=== PATIENT | male | born 1965 | race Caucasian/White ===

== ENCOUNTER → 2016-04-09 | Day surgery (SDC) | payer BC ==
[2016-03-31 14:51] VITALS: BMI 29.0
[~2016-04-09] VITALS: Ht 190.5 cm; Wt 106.8 kg
[~2016-04-09] MED LIST: CINN1CAP2 PO; GARL10007 PO; MULTTAB58 PO; OMEG10007 PO; SODIUM CHLORIDE 0.9% 500ML 500 ML IV ONE; TAMS0.4C38 PO
[2016-04-09 09:36] VITALS: Ht 190.5 cm; Wt 106.8 kg
[2016-04-09 09:51] VITALS: TEMP 36.6
--- NOTE | 2016-04-09 10:19 | Endo History and Physical ---
History & Physical Date of Service: Apr 09, 2016. Chief Complaint: screening Referring Physician: Dr. Guzman History of Present Illness 51 yo CM who presents for screening colonoscopy Past Medical History High Cholesterol Past Surgical History Hx Cardiac Surgery: No Hx Internal Defibrillator: No Hx Pacemaker: No Hx Abdominal Surgery: No Hx of Implantable Prosthesis: No Hx Post-Op Nausea and Vomiting: No Hx Cancer Surgery: No Hx Thoracic Surgery: No Hx Orthopedic: Yes (RT SHOULDER SCOPE, LT KNEE SCOPE X2) Hx Urinary Tract Surgery: Yes (KIDNEY STENT) Family History None Social History Smoking Status: Never Smoker Hx Substance Use: No Hx Alcohol Use: No Allergies Coded Allergies: Penicillins (Verified Allergy, Severe, THROAT SWELLING, 03/31/16) Latex1 -Allergic Contact Dermititis (Verified Allergy, Mild, ITCHING, 03/31) Current Medications Reported Home Medications Medications Dose Route/Sig Max Daily Dose Days Date Category Flomax (Tamsulosin Hcl) 0.4 Mg Cap 0.4 Mg PO QAM 03/31/16 Reported Garlic 1,000 Mg Cap 1,000 Mg PO BID 09/18/14 Reported Cinnamon 500 Mg Cap 500 Mg PO BID 09/18/14 Reported [place]-3 (Fish Oil) 1 Ea Cap 1 Tab PO QAM 09/18/14 Reported Multivitamin (Multiple Vitamin) 1 Tab Tab 1 Tab PO QAM 08/23/13 Reported Vital Signs Weight (Kilograms): 106.82 Height (Feet): 6 Height (Inches): 3 Date Time Temp Pulse Resp B/P Pulse Ox O2 Delivery O2 Flow Rate FiO2 04/09/16 09:51 36.6 86 18 133/81 98 Room Air Physical Exam General Appearance: WD/WN, no apparent distress Respiratory/Chest: Auscultation: breath sounds normal Cardiovascular: Heart Auscultation: RRR Abdomen: Bowel Sounds: normal Inspection & Palpation: soft, non-distended, no tenderness, guarding & rebound Assessment and Plan Assessment: 51 yo CM who presents for screening colonoscopy Plan: OK to proceed with colonoscopy.
--- NOTE | 2016-04-09 10:37 | Discharge Instructions ---
Endoscopy Patient Instructions Date / Procedure(s) Performed Apr 09, 2016. Colonoscopy Allergy Information Coded Allergies: Penicillins (Verified Allergy, Severe, THROAT SWELLING, 03/31/16) Latex1 -Allergic Contact Dermititis (Verified Allergy, Mild, ITCHING, 03/31) Discharge Date / Findings Apr 09, 2016. Colon polyp Internal hemorrhoids Medication Instructions OK to resume all medications today as prescribed. Reported Home Medications Medications Dose Route/Sig Max Daily Dose Days Date Category Flomax (Tamsulosin Hcl) 0.4 Mg Cap 0.4 Mg PO QAM 03/31/16 Reported Garlic 1,000 Mg Cap 1,000 Mg PO BID 09/18/14 Reported Cinnamon 500 Mg Cap 500 Mg PO BID 09/18/14 Reported [place]-3 (Fish Oil) 1 Ea Cap 1 Tab PO QAM 09/18/14 Reported Multivitamin (Multiple Vitamin) 1 Tab Tab 1 Tab PO QAM 08/23/13 Reported Provider Instructions Activity Restrictions - No exercising or heavy lifting for 24 hours. - Do not drink alcohol the day of the procedure. - Do not drive a car or operate machinery until the day after the procedure. - Do not make any important decisions or sign important papers in 24 hours after the procedure. Following Day: - Return to full activity which may include returning to work/school. Diet Start your diet with liquids and light foods (jello, soup, juice, toast). Then eat your usual diet if not nauseated. Treatment For Common After Affects For mild abdominal pain, bloating, or excessive gas: - Rest - Eat lightly - Lie on right side Follow-Up Information Follow-up with Dr. Guzman as scheduled Anesthesia Information What You Should Know You have had a procedure that required some medicine to reduce anxiety and discomfort. This treatment is called moderate sedation. After receiving the treatment, you may be sleepy, but you will be able to breathe on your own. The effects of the treatment may last for several hours. Follow these instructions along with Activity/Diet recommendations noted above: * Do NOT do anything where dizziness or clumsiness would be dangerous. * Rest quietly at home today, then you can be up and about tomorrow. * Have a responsible person stay with you the rest of today. * You may have had an I.V. today. If so, you may take the dressing off later today. Recommendations Call your doctor if: * Trouble breathing * Continuous vomiting for more than 24 hours * Temperature above 101 degrees * Severe abdominal pain or bloating * Pain not relieved by pain medicine ordered * There is increased drainage or redness from any incision * A large amount of rectal bleeding greater than 2-3 tablespoons. (If you had a polyp/s removed or have hemorrhoids, a small amount of blood - from the rectum is to be expected.) * You have any unanswered questions or concerns. IN THE EVENT OF A SERIOUS EMERGENCY, GO TO THE NEAREST EMERGENCY ROOM Your discharge instructions were prepared by provider Thompson Ramirez. Patient Instructions Signature Page Saul Rodgers Patient (or Guardian) Signature/Date: I have read and understand the instructions given to me by my caregivers. Caregiver/RN/Doctor Signature/Date: The above-named patient and/or guardian has received patient instructions on this date. + Original Patient Signature Page (only) stays with chart. Please make copy for patient.
--- NOTE | 2016-04-09 10:42 | GI REPORT ---
Procedure Date: 04/09/2016 10:08 AM Procedure: Colonoscopy Indications: Screening for colorectal malignant neoplasm Medicines: Monitored Anesthesia Care Complications: No immediate complications. Estimated Blood Loss: Estimated blood loss: none. Procedure: Pre-Anesthesia Assessment: - Prior to the procedure, a History and Physical was performed, and patient medications and allergies were reviewed. The patient's tolerance of previous anesthesia was also reviewed. The risks and benefits of the procedure and the sedation options and risks were discussed with the patient. All questions were answered, and informed consent was obtained. Prior Anticoagulants: The patient has taken no previous anticoagulant or antiplatelet agents. ASA Grade Assessment: II - A patient with mild systemic disease. After reviewing the risks and benefits, the patient was deemed in satisfactory condition to undergo the procedure. After I obtained informed consent, the scope was passed under direct vision. Throughout the procedure, the patient's blood pressure, pulse, and oxygen saturations were monitored continuously. The scope was introduced through the anus and advanced to the terminal ileum. The colonoscopy was performed without difficulty. The patient tolerated the procedure well. The quality of the bowel preparation was good. The terminal ileum, ileocecal valve, appendiceal orifice, and rectum were photographed. Findings: A 5 mm polyp was found in the sigmoid colon. The polyp was sessile. The polyp was removed with a hot snare. Resection and retrieval were complete. Non-bleeding internal hemorrhoids were found during retroflexion. The hemorrhoids were small. Impression: - One 5 mm polyp in the sigmoid colon, removed with a hot snare. Resected and retrieved. - Non-bleeding internal hemorrhoids. Recommendation: - Resume previous diet. - Continue present medications. - Repeat colonoscopy for surveillance based on pathology results. - Return to primary care physician as previously scheduled. Thompson Ramirez DO 04/09/2016 10:41:46 AM This report has been signed electronically. Note Initiated On: 04/09/2016 10:08 AM
[2016-04-09 11:10] VITALS: BP 108/62; PULSE 63; O2SAT 100
--- NOTE | 2016-04-09 11:16 | Anesthesiology Progress Note ---
Anesthesia Post Op Note Date & Time Apr 09, 2016 at 11:17 Vital Signs Pain Intensity: 0 Vital Signs Past 12 Hours Date Time Temp Pulse Resp B/P Pulse Ox O2 Delivery O2 Flow Rate FiO2 04/09/16 11:10 63 18 108/62 100 Room Air 04/09/16 10:55 64 18 113/67 100 Room Air 04/09/16 10:40 72 18 88/51 98 Room Air 04/09/16 09:51 36.6 86 18 133/81 98 Room Air Notes Mental Status: alert / awake / arousable, participated in evaluation Pt Amnestic to Procedure: Yes Nausea / Vomiting: adequately controlled Pain: adequately controlled Airway Patency, RR, SpO2: stable & adequate BP & HR: stable & adequate Hydration State: stable & adequate Anesthetic Complications: no major complications apparent
== END | disposition home or self-care (01) ==
LOC: C.GI 08:48
PROVIDERS: ATTEND Internal Medicine
DX: Z12.11 Encounter for screening for malignant neoplasm of colon (principal); D12.5 Benign neoplasm of sigmoid colon; K64.8 Other hemorrhoids

== ENCOUNTER 2017-03-11 09:04 | Emergency (ER) | payer OTHER, BC ==
[~2017-03-11] VITALS: Ht 193 cm; Wt 100.0 kg
[~2017-03-11 09:04] MED LIST changes: -SODIUM CHLORIDE 0.9% 500ML 500 ML IV ONE
[2017-03-11 09:08] VITALS: TEMP 36.7; Ht 193 cm; Wt 100.0 kg
[2017-03-11] MEDS ORDERED: CYAN10005 PO (09:28)
[2017-03-11] MEDS ORDERED: TOLT2TAB9 PO (09:28)
--- NOTE | 2017-03-11 10:47 | EMERGENCY ROOM VISIT NOTE ---
ED Visit Note First contact with patient: 09:14 CHIEF COMPLAINT: Finger injury HISTORY OF PRESENT ILLNESS: This 51-year-old male patient who is right-hand dominant, presents to the emergency department 1 day after injuring the right fifth finger at work. The patient states he works with a [employer] company and yesterday morning, was throwing some cardboard into the truck, when he got his finger caught in the moving chain. He is uncertain how exactly the injury occurred, but believes it to be a twisting injury. He continued to work yesterday, as the pain was not significant. He was advised to fill out paperwork at the end of his work day, but the patient's access services representative was unavailable. He returned to work today and was advised to come to the ED for further evaluation and x-ray. The patient notes some bruising and swelling to the right little finger. The patient rates the pain as minimal and 1/10, but more severe with palpation or movement. The patient has mildly decreased range of motion of the finger. No numbness or tingling. No lacerations. No other injuries. The patient has not had previous fracture to this finger. The patient has taken nothing for the pain. The patient works at [employer] and [employer]. REVIEW OF SYSTEMS: A 6 system review of systems was completed with positives and pertinent negatives in the HPI. ALLERGIES: Latex, penicillin MEDICATIONS: Tamsulosin, "another medication from my urologist" PMH: BPH SOCIAL HISTORY: The patient lives locally with family. He denies drug or alcohol use. The patient admits to chewing snuff regularly. PHYSICAL EXAM: Vital Signs: Reviewed Nurse's notes, vital signs stable. GENERAL : This is a 51-year-old white male, in no acute distress, well-developed, well- nourished. 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 The patient has mildly limited flexion and limited extension of the right little finger and strength to resistance is 5/5. The PIP joint is maximally tender and ecchymotic. There is swelling and tenderness of the proximal and middle phalanges. There is no ligamentous instability. There is no laceration. Capillary refill less than 2 seconds. No tenderness of the remaining fingers or hand. Full range of motion of the wrist. NEURO: Alert and oriented to person, place, and time. Normal sensation to light and sharp touch. RADIOLOGY: RIGHT FIFTH FINGER 3 VIEWS HISTORY: right 5th finger pain/bruising - mid/distal phalanx, PIP COMPARISON: None. FINDINGS: There is no fracture or dislocation. Soft tissue swelling at the PIP joint. No erosions identified. No radiopaque foreign bodies. IMPRESSION: Soft tissue swelling at the PIP joint of the right fifth finger. No underlying bony abnormality. Electronically signed by: Michele Maza M.D. 03/11/2017 10:46 AM Dictated Date/Time: 03/11/2017 10:44 AM EMERGENCY DEPARTMENT COURSE: I examined the patient. I offered pain medication and the patient declines. An x-ray of the right little finger was reviewed by myself and radiologist and showed soft tissue swelling, but no bony abnormality. I do suspect a flexor tendon injury due to the boutonniere deformity. The finger was immobilized by a metal splint under my direction and the position was satisfactory. Neurovascular status rechecked and intact. The patient is encouraged to follow-up outpatient with orthopedics. The patient was discharged home in good condition. I attest that I have personally reviewed the patient's current medication list. Patient was found to have normal blood pressure on screening and does not require follow-up. DIFFERENTIAL DIAGNOSIS: Contusion, fracture, dislocation, soft tissue injury, tendon rupture, and others DIAGNOSIS: Boutonniere deformity of right little finger Current/Historical Medications Scheduled Cinnamon (Cinnamon), 500 MG PO BID Cyanocobalamin (Vitamin B-12), 1,000 MCG PO DAILY Fish Oil ([place]-3), 1 TAB PO QAM Garlic (Garlic), 1,000 MG PO BID Multiple Vitamin (Multivitamin), 1 TAB PO QAM Tamsulosin Hcl (Flomax), 0.4 MG PO QAM Tolterodine Tartrate (Tolterodine Tartrate), 2 MG PO BID Allergies Coded Allergies: Penicillins (Verified Allergy, Severe, THROAT SWELLING, 03/11/17) Latex1 -Allergic Contact Dermititis (Verified Allergy, Mild, ITCHING, ) Vital Signs Date Time Temp Pulse Resp B/P (MAP) Pulse Ox O2 Delivery O2 Flow Rate FiO2 03/11/17 11:07 84 16 121/81 97 Room Air 03/11/17 09:08 36.7 110 18 122/74 97 Room Air Departure Information Impression Primary Impression: Boutonniere deformity of finger of right hand Dispostion Home / Self-Care Condition GOOD Referrals No Doctor, Assigned (PCP) Star Jules M.D. Patient Instructions ED Contusion Finger, My [facility] Additional Instructions You were seen in the emergency department today for a right finger injury. I do suspect a tendon injury. Please keep the splint in place until evaluated by orthopedics. Use ice to help with pain and swelling. 20 minutes on and time. For pain control, you can use the following [id number] medicines (if >12 yo): - Regular strength (325mg/tab) Tylenol (acetaminophen) 2 tabs every 4-6 hours as needed. Do not exceed 12 tablets in a 24 hour period. Avoid taking more than 3 grams (3000 mg) of Tylenol per day. This includes any other sources of acetaminophen you may take on a regular basis. - Regular strength (200 mg/tab) Advil (ibuprofen) 1-2 tabs every 4-6 hours as needed. Do not exceed a dose of 2400 mg per day. Please follow up with your Worker's [employer]. providers and orthopedics within 1 week. Return to the emergency department for worsening redness, swelling, pain, numbness or tingling, puslike drainage, fever, or other concerning symptoms.
[2017-03-11 11:07] VITALS: BP 121/81; PULSE 84; O2SAT 97
== END 2017-03-11 11:30 | disposition home or self-care (01) ==
LOC: C.EDB 09:06 → C.EDA 11:30
DX: M20.021 Boutonniere deformity of right finger(s) (principal); Y99.0 Civilian activity done for income or pay; Y92.89 Other specified places as the place of occurrence of the external cause; W24.0XXA Contact with lifting devices, not elsewhere classified, initial encounter; Z79.899 Other long term (current) drug therapy; N40.0 Benign prostatic hyperplasia without lower urinary tract symptoms; F17.220 Nicotine dependence, chewing tobacco, uncomplicated

== ENCOUNTER → 2017-09-30 | Outpatient (CLI) | payer BC ==
[~2017-09-30] MED LIST changes: +CYAN10005 PO; +TOLT2TAB9 PO
[2017-09-30 12:31] LABS: BASO % 0.3 %; BASO ABS # 0.02 K/uL (0-0.2); EOS % 1.6 %; EOS ABS # 0.09 K/uL (0-0.5); HEMATOCRIT 47.7 % (42-52); HEMOGLOBIN 15.9 g/dL (14.0-18.0); IG# 0.01 K/uL (0.00-0.02); LYMPH % 10.2 %; LYMPH ABS # 0.59 K/uL (1.2-3.4); MEAN CELL VOLUME 96.6 fL (80-100); MEAN CORPUSCULAR HEMOGLOBIN 32.2 pg (25-34); MEAN CORPUSCULAR HGB CONC 33.3 g/dl (32-36); MEAN PLATELET VOLUME 9.1 fL (7.4-10.4); MONO % 9.7 %; MONO ABS # 0.56 K/uL (0.11-0.59); NEUT ABS # 4.53 K/uL (1.4-6.5); PLATELET COUNT 234 K/uL (130-400); RED CELL DISTRIBUTION WIDTH CV 13.5 % (11.5-14.5); RED CELL DISTRIBUTION WIDTH SD 47.6 fL (36.4-46.3)
[2017-09-30 13:00] LABS: ALBUMIN 4.1 gm/dl (3.4-5.0); ALKALINE PHOSPHATASE 60 U/L (45-117); ALT/SGPT 34 U/L (12-78); AST/SGOT 22 U/L (15-37); BLOOD UREA NITROGEN 16 mg/dl (7-18); CALCIUM 9.1 mg/dl (8.5-10.1); CARBON DIOXIDE 27 mmol/L (21-32); CHOLESTEROL 162 mg/dl (0-200); CREATININE 1.05 mg/dl (0.60-1.40); GLUCOSE 88 mg/dl (70-99); LDL CHOLESTEROL CALCULATED 63 mg/dl; POTASSIUM 4.2 mmol/L (3.5-5.1); SODIUM 140 mmol/L (136-145); TOTAL PROTEIN 7.8 gm/dl (6.4-8.2)
== END | disposition home or self-care (01) ==
LOC: C.LABBFT 09:29
PROVIDERS: ATTEND Internal Medicine
DX: N40.1 Benign prostatic hyperplasia with lower urinary tract symptoms (principal); E78.5 Hyperlipidemia, unspecified

== ENCOUNTER 2019-07-23 16:31 | Inpatient (IN) ==
[2019-07-23] MEDS ORDERED: SODIUM CHLORIDE 0.9% 1000ML 1,000 ML IV SCH (16:45)
--- NOTE | 2019-07-23 17:04 | Emergency Department Note ---
Impression & Plan Atrial flutter with rapid ventricular response, Syncope, Laceration of occipital region of scalp ED Provider Note NAME: MICHAEL HINOJOSA AGE: 54 SEX: M : 1965 ARRIVES VIA: Ambulance INFORMANT: Patient, ED PROVIDER(S): Chandu Herman MD Chief Complaint: Shortness of breath, syncope HPI: She does present with concern for shortness of breath and syncope. The patient states that he developed some shortness of breath earlier today. The patient states that was brief and then happened a subsequent time and the patient syncopized. The patient does have some mild posterior headache as the patient reportedly fell backwards and struck his head. No known history of seizures. No tongue biting or urinary or bladder incontinence. The patient does use alcohol and tobacco. The patient denies any chest pains. The patient did present via EMS where he did receive a dose of Cardizem. His in route EKG showed a likely atrial flutter. ROS: See HPI for pertinent positives and negatives. A total of 10 systems were reviewed and otherwise negative. Past medical history: See below Surgical history: See below Social history: See below Physical Exam: GENERAL: Well appearing, well nourished, NAD, non-toxic. Wearing a mask and glasses. Head: 2 cm laceration to the occiput, hemostatic. Mild TTP. EYE EXAM: Normal conjunctiva. PERRL, no anisocoria and EOM's grossly intact w/o pain. NECK: Supple, no nuchal rigidity, no adenopathy, non-tender. No signs of meningismus. No midline C-spine TTP. LUNGS: Clear to auscultation. Normal chest wall mechanics. HEART: Tachycardic and regular, no MRG. ABDOMEN: Abdomen soft, non-tender, normo-active bowel sounds, no masses, no rebound or guarding. BACK: No CVA TTP. SKIN: No rashes and no bruising. UPPER EXTREMITIES: Upper extremities are grossly normal. LOWER EXTREMITIES: Grossly normal, no edema. NEURO EXAM: A&O x3, cranial nerves II-XII grossly intact, normal speech, moves all 4 extremities on command w/o issue. Differential diagnoses: Vasovagal event, dehydration, infection, hypoglycemia, electrolyte abnormalities, cardiac sources, intracerebral event, pulmonary embolism, seizure, toxicologic, neurologic, as well as other pathologies. Course: Patient was seen and evaluated the bedside. A full history and physical exam was performed. EKG: Indication: Shortness of breath Atrial flutter, 2-1 AV block, ventricular rate of 146, normal intervals, left axis deviation, this is a change from prior EKG. Patient's atrial flutter is new compared to comparison EKG September 18, 2014 Repeat indication: Worsening tachycardia Monomorphic tachycardia rate of 279, borderline wide QRS, possibly one-to-one atrial flutter. This is an acute change with higher rate of tachycardia. Repeat indication: Improvement of tachycardia A flutter, 2-1 block, ventricular rate of 135, left axis deviation, this is in a change with an improvement in rate compared to prior. Imaging Studies: Radiology results as stated below per my review in the radiologist's inter pretation: CT head/brain wo con CLINICAL HISTORY: Head trauma. Occipital laceration. Pain. Possible loss of consciousness. COMPARISON STUDY: No previous studies for comparison. TECHNIQUE: Axial CT of the brain is performed from the vertex to the skull base. IV contrast was not administered for this examination. A dose lowering technique was utilized adhering to the principles of ALARA. CT DOSE: 537.48 mGy.cm FINDINGS: No intra or extra-axial mass lesions are visualized. There is no CT evidence of acute cortical infarction. There is no evidence of midline shift. There is no acute hemorrhage. No calvarial fractures are visualized. There are minimal white matter hypodensities likely on a small vessel basis. There is no evidence of pathologic ventricular dilatation. There is no evidence of acute sinusitis. There is left occipital scalp edema. IMPRESSION: 1. Left occipital scalp contusion. No fractures identified 2. No acute intracranial findings ACT 112: Negative or not required by law. Electronically signed by: Hemal Zambrano M.D. 07/23/2019 5:03 PM Dictated: 07/23/191700 Transcribed: 07/23/191700 Cardiac monitoring: An order was placed for continuous cardiac monitoring. The monitor shows a rate of 150 with tachycardic rhythm possible flutter Procedures: Laceration repair performed by Dr. Herman Location: Occiput portion of the skin Total length: 2 cm Complexity: Simple Verbal consent was obtained after the risks and benefits were explained, in cluding but not limited to bleeding, scarring, infection, pain, and bone/joint/nerve damage. At this time, the risks of the procedure are less than the risks of NOT performing the procedure. A time out was taken and the correct patient and site identified. The skin was prepped with chlorhexidine.Copious irrigation was performed using sterile saline. The skin was re-prepped with betadine and a sterile field set. The wound was explored for foreign bodies and none found. Examination revealed no injury to deep structures such as tendons, bone, or significant blood vessels. Debridement was not performed. The wound edges were approximated using 1 staple simple interrupted nylon sutures. Hemostasis and excellent approximation was achieved. Detailed wound care instructions and signs and symptoms of infection reviewed with the patient. No complications and the patient tolerated the procedure well. MDM: Patient did present from work due to concern for syncope and tachycardia. The patient was sent to CT given that the patient does have a known history of DVT and is on Xarelto. Upon return from the CT scanner the patient did have a heart rate in the 280s. This appeared to be monomorphic and the patient was not complaining of lightheadedness or dizziness. The patient denied any chest pains or shortness of breath. Pads were placed and repeat EKGs were obtained. I did page the on-call sexual health physician. I did speak with Dr. Demarco who did kindly reviewed his EKGs. He believes that this is likely a one-to-one atrial flutter. He believes that amiodarone diltiazem would be reasonable. Patient was ordered an amnio bolus. The patient did spontaneously revert back to his 2-1 ventricula r rate AV block and was now in the 130s and 40s. Patient's blood work did show mild transaminitis. Troponin is not detectable. CT the head did not show any obvious fracture or ICH. The patient's laceration was repaired. Tetanus is up-to-date. I did speak the on-call hospitalist agreed to further evaluate treat the patient. Patient was admitted to the medicine service under Dr. Geo Ledesma [facility] physician group hospitalist. Critical Care: I have personally spent 95 minutes of critical care time in direct management of this patient. This includes bedside care, interpretation of diagnostic studies, and testing, discussion with consultants, patient, and family members, and other require inpatient management activities. This 95 minutes is in excess of all separately billable procedures. Past Med/Surg History Medical History BPH (benign prostatic hyperplasia) DVT (deep venous thrombosis) Groin strain (Inactive) Surgical History History of knee surgery History of shoulder surgery Family History Grandfather Myocardial infarction Brother Diabetes Diverticulitis Father Leukemia Kidney stone Mother Cardiac disorder Hypothyroidism Social History (Updated 07/23/19 @ 18:38 by Chandu Herman MD) marital status: Goal current occupational status: employed Feels Safe at Home: Yes Smoking Status: Current every day smoker Tobacco Type: smokeless tobacco ; Hx Alcohol Use: Yes Hx Substance Use: No Allergies Allergies Allergy/AdvReac Type Severity Reaction Status Date / Time Penicillins Allergy Severe THROAT Verified 07/23/19 16:55 SWELLING latex Allergy Mild ITCHING Verified 07/23/19 16:55 Home Meds Home Medications Medication Instructions Recorded Confirmed tamsulosin 0.4 mg capsule 0.4 mg PO HS #30 cap 10/02/18 07/23/19 rivaroxaban 20 mg tablet 20 mg PO DIRECTED 07/23/19 07/23/19 Previous Rx's Medication Instructions Recorded multivitamin 1 tab PO DAILY #30 tab 10/06/18 tolterodine 2 mg tablet 2 mg PO BID 90 Days #180 tab 01/24/19 Results & Data (ED) Vital Signs Vital Signs - 24 hr 07/23/19 16:46 07/23/19 17:11 Temperature 37.2 C Temperature Source Oral Pulse Rate 146 H Respiratory Rate 20 Respiratory Effort / Characteristics Non-Labored Respiratory Depth Normal Blood Pressure 134/102 H Blood Pressure Mean 112 Pulse Oximetry 97 98 Oxygen Delivery Method Room Air Room Air Sepsis Recent Fever Within 48 Hours No Sepsis Action Taken by Nursing No Action Required Home Medications Current Medication List: was personally reviewed by me Laboratory Data Attestation: I reviewed the patient's lab results. Result diagrams: 07/23/19 17:17 07/23/19 17:17 Lab Results 07/23/19 07/23/19 Range/Units 17:17 17:17 WBC 8.46 (4.8-10.8) K/uL RBC 5.04 (4.7-6.1) M/uL Hgb 16.5 (14.0-18.0) g/dL Hct 48.3 (42-52) % MCV 95.8 (80-100) fL MCH 32.7 (25-34) pg MCHC 34.2 (32-36) g/dL RDW Std Deviation 47.6 H (36.4-46.3) fL RDW Coeff of Cecilio 13.7 (11.5-14.5) % Plt Count 284 (130-400) K/uL MPV 8.8 (7.4-10.4) fL Immature Gran % (Auto) 0.2 % Neut % (Auto) 81.1 % Lymph % (Auto) 9.7 % Bailey % (Auto) 8.7 % Eos % (Auto) 0.2 % Baso % (Auto) 0.1 % Immature Gran # (Auto) 0.02 (0.00-0.02) K/uL Neut # (Auto) 6.85 H (1.4-6.5) K/uL Lymph # (Auto) 0.82 L (1.2-3.4) K/uL Bailey # (Auto) 0.74 H (0.11-0.59) K/uL Eos # (Auto) 0.02 (0-0.5) K/uL Baso # (Auto) 0.01 (0-0.2) K/uL Sodium 138 (136-145) mmol/L Potassium 3.9 (3.5-5.1) mmol/L Chloride 104 (98-107) mmol/L Carbon Dioxide 23 (21-32) mmol/L Anion Gap 11.0 (3-11) BUN 22 H D (7-18) mg/dl Creatinine 1.48 H D (0.6-1.4) mg/dl Est Cr Clr Drug Dosing 82.2 ml/min Est GFR ( Amer) 61.3 Est GFR (Non-Af Amer) 52.9 BUN/Creatinine Ratio 14.5 (10-20) Glucose 112 H (70-99) mg/dl Calcium 9.3 (8.5-10.1) mg/dl Phosphorus 3.4 (2.5-4.9) mg/dl Magnesium 2.3 (1.8-2.4) mg/dl Total Bilirubin 0.7 (0.2-1) mg/dl AST 78 H (15-37) U/L ALT 95 H (12-78) U/L Alkaline Phosphatase 73 (45-117) U/L Troponin I < 0.015 (0-0.045) ng/ml Total Protein 8.1 (6.4-8.2) gm/dl Albumin 4.3 (3.4-5.0) gm/dl Globulin 3.8 (2.5-4.0) gm/dl Albumin/Globulin Ratio 1.1 (0.9-2) TSH 6.260 H (0.300-4.500) uIu/ml Free T4 1.30 (0.8-1.6) ng/dl Administered Medications Discontinued Medications Sodium Chloride (Nss 1000ml) 1,000 mls @ 999 mls/hr IV .Q1H1M VANNESA Stop: 07/23/19 17:45 Last Admin: 07/23/19 17:16 Dose: 999 mls/hr Documented by: [id number] Amiodarone HCl/Dextrose (Nexterone / D5w) 150 mg in 100 mls @ 600 mls/hr IV NOW STA Stop: 07/23/19 17:37 Last Admin: 07/23/19 17:35 Dose: 600 mls/hr Documented by: [id number] Cosigned by: [id number] Blood Pressure Blood Pressure Findings: Elevated blood pressure Blood Pressure Disposition: further management by hospitalist Discharge Plan Visit Data Chief Complaint: Syncope Stated Complaint: DIZZINESS, SYNCOPE ED Provider: Chandu Herman Discharge Problem: Atrial flutter with rapid ventricular response, Syncope, Laceration of occipital region of scalp Forms Stand Alone Forms: [facility] [employer] Prescriptions Prescriptions: No Action tolterodine 2 mg tablet 2 mg PO BID 90 Days Qty: 180 RF: 1 Xarelto 20 mg tablet 20 mg PO DIRECTED RF: 0 tamsulosin 0.4 mg capsule 0.4 mg PO HS Qty: 30 RF: 0 multivitamin tablet 1 tab PO DAILY Qty: 30 RF: 0 Discharge Problem: Syncope Qualifiers: Syncope type: unspecified Qualified Code(s): R55 - Syncope and collapse Laceration of occipital region of scalp Qualifiers: Encounter type: initial encounter Qualified Code(s): S01.01XA - Laceration without foreign body of scalp, initial encounter
[2019-07-23 17:26] LABS: Basophils # (auto) 0.01 K/uL (0-0.2); Basophils % (auto) 0.1 %; Eosinophils # (auto) 0.02 K/uL (0-0.5); Eosinophils % (auto) 0.2 %; Hematocrit (blood only) 48.3 % (42-52); Hemoglobin 16.5 g/dL (14.0-18.0); Immature Granulocytes # (auto) 0.02 K/uL (0.00-0.02); Immature Granulocytes % (auto) 0.2 %; Lymphocytes # (auto) 0.82 K/uL (1.2-3.4); Lymphocytes % (auto) 9.7 %; Mean Corpuscular Hemoglobin 32.7 pg (25-34); Mean Corpuscular Hgb Conc 34.2 g/dL (32-36); Mean Corpuscular Volume 95.8 fL (80-100); Mean Platelet Volume 8.8 fL (7.4-10.4); Monocytes # (auto) 0.74 K/uL (0.11-0.59); Monocytes % (auto) 8.7 %; Neutrophils # (auto) 6.85 K/uL (1.4-6.5); Neutrophils % (auto) 81.1 %; Platelet Count 284 K/uL (130-400); RDW Coefficient of Variation 13.7 % (11.5-14.5); RDW Standard Deviation 47.6 fL (36.4-46.3); Red Blood Count 5.04 M/uL (4.7-6.1); White Blood Count 8.46 K/uL (4.8-10.8)
[2019-07-23] MEDS ORDERED: AMIODARONE / D5W 150 MG/100 ML BAG IV STA (17:28)
[2019-07-23] MEDS ORDERED: 0.2 MICRON FILTER SET 1 EA IV ONE (17:28)
[2019-07-23 17:49] LABS: Albumin Level 4.3 gm/dl (3.4-5.0); Aspartate Aminotransferase 78 U/L (15-37); BUN Creatinine Ratio 14.5 (10-20); Blood Urea Nitrogen 22 mg/dl (7-18); Calcium 9.3 mg/dl (8.5-10.1); Carbon Dioxide 23 mmol/L (21-32); Chloride 104 mmol/L (98-107); Creatinine Clr Calc Pharmacy 82.2 ml/min; Est GFR (African American) 61.3; Est GFR (Non-African American) 52.9; Glucose 112 mg/dl (70-99); Magnesium 2.3 mg/dl (1.8-2.4); Potassium 3.9 mmol/L (3.5-5.1); Sodium 138 mmol/L (136-145)
[2019-07-23 18:00] LABS: Alanine Aminotransferase 95 U/L (12-78); Albumin Globulin Ratio 1.1 (0.9-2); Alkaline Phosphatase 73 U/L (45-117); Bilirubin,Total 0.7 mg/dl (0.2-1); Globulin 3.8 gm/dl (2.5-4.0); Phosphorus 3.4 mg/dl (2.5-4.9); Total Protein 8.1 gm/dl (6.4-8.2); Troponin I < 0.015 ng/ml (0-0.045)
[2019-07-23] MEDS ORDERED: STAT IV Infusion **Titration per Protocol STA ×2 (18:23→19:27)
[2019-07-23] MEDS ORDERED: dilTIAZem HCL 125 MG in DEXTROSE 5% 100 ML IV SCH (18:30)
--- NOTE | 2019-07-23 18:36 | History & Physical Report ---
Date of Service July 23, 2019 Assessment & Plan (1) Atrial flutter with rapid ventricular response: admit to PCU Cardizem drip to control HR, < 110 make NPO after midnight for possible [place] cardioversion with cardiology Dr. Demarco consulted patient already on Xarelto for superficial thrombophlebitis, will continue check echocardiogram (2) Syncope: most likely due to HR in the 200s monitor on tele check echo (3) Superficial thrombophlebitis: less pain and swelling with treatment continue Xarelto BID History of Present Illness Chief Complaint: I passed out twice Primary Care Provider: Isidoro Moore MD 54 yo male with recent history of superficial thrombophlebitis, currently on Xarelto, presented to the ED via EMS due to two separate syncopal episodes while at work. He said that Tuesday, 07/19, he noticed that he had some dizziness towards the end of his work day. 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 He was able to drive home. He called his PCP office, they recommended that he take it easy over the weekend, if any further symptoms occurred then he should go to the ED. He had a good weekend, no issues, but he admits that he did not do much. This morning he was placed on light duty by his boss. The morning went well. In the afternoon he again had to use the forklift and when he got up he felt dizzy. He rested the remainder of the day and then it was close to quitting time and he walked to the back to turn off the fans. He reached out to turn off the first switch and the next thing he knew he was on the ground. He stood back up, walked a little ways and then felt the back of his head, he was bleeding. He then felt a simon to his head and passed out. His coworkers brought him to the break room, he was diaphoretic and had some chest pain. EMS arrived and got him on the ambulance. Once he was on the monitor he was found to have a heart rate in the 200's. In the ED his BP was stable and he was mentating normally, he was given amiodarone bolus to try to break the atrial flutter. There was consideration of cardioversion but his HR came down to the 140's. Discussed case with cardiology, they will evaluate for [place] cardioversion tomorrow. No heart history, specifically no h/o [place], arrhythmia, valve disease. He says that his mother had atrial fibrillation. Allergies Allergy/AdvReac Type Severity Reaction Status Date / Time Penicillins Allergy Severe THROAT Verified 07/23/19 16:55 SWELLING latex Allergy Mild ITCHING Verified 07/23/19 16:55 Home Medications Home Medications Medication Instructions Recorded Confirmed Type tamsulosin 0.4 mg capsule 0.4 mg PO HS #30 cap 10/02/18 07/23/19 History multivitamin 1 tab PO DAILY #30 tab 10/06/18 07/23/19 Rx tolterodine 2 mg tablet 2 mg PO BID 90 Days #180 tab 01/24/19 07/23/19 Rx rivaroxaban 20 mg tablet 20 mg PO DIRECTED 07/23/19 07/23/19 History Past Med/Surg History Medical History BPH (benign prostatic hyperplasia) DVT (deep venous thrombosis) Groin strain (Inactive) Surgical History History of knee surgery History of shoulder surgery Family History Grandfather Myocardial infarction Brother Diabetes Diverticulitis Father Leukemia Kidney stone Mother Cardiac disorder Hypothyroidism Social History (Updated 07/23/19 @ 18:38 by Chandu Herman MD) Preferred Language: Maldivian Communication Ability: Effective 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 Beliefs That Will Affect Care: None marital status: Goal Current Living Situation: Alone current occupational status: employed Other Information That Helps Us Care for You: No Feels Safe at Home: Yes Safety Concerns: Feels Safe At This Time Smoking Status: Never smoker Tobacco Type: smokeless tobacco ; Do You Dip or Chew Tobacco: Yes ; Second Hand Exposure: No ; Tobacco Cessation Education Requested by Patient: No Hx Alcohol Use: Yes Alcohol type: beer Hx Substance Use: No Review of Systems Review of Systems: All systems reviewed & are unremarkable except as noted in HPI & below Constitutional: + sweats, + fatigue and + weakness; no fever and no chills Respiratory: no cough and no dyspnea Cardiovascular: + chest pain, + syncope and + edema (right leg, recently); no palpitations Gastrointestinal: no abdominal pain, no nausea, no vomiting, no constipation and no diarrhea/loose stools Musculoskeletal: no back pain and no joint pain Neurologic: + syncope Physical Exam Constitutional: + overweight; no acute distress Eyes: PERRL, conjunctivae normal, anicteric sclerae ENMT: external ear and nose normal, oropharynx normal Neck: trachea midline, no thyromegaly Respiratory: normal respiratory effort, lungs clear to auscultation Cardiovascular: Rate/Rhythm: + tachycardic and + irregularly irregular Heart Sounds: normal S1 and normal S2; no murmur Vessels: no JVD Extremities: normal capillary refill and + calf tenderness (right side); no edema Gastrointestinal (Abdomen): normal bowel sounds, soft, nontender, no hepatosplenomegaly Musculoskeletal: no cyanosis or clubbing, extremities motor strength 5/5 Skin: no rashes, warm and dry Neurologic: patellar DTR's 2+ bilat, sensation intact and PERRL, EOMI, accommodation nl, no face palsy, no dysarthria Psychiatric: A+Ox3, euthymic affect Lymphatic: no cervical or axillary lymphadenopathy Results & Data Results & Data ([facility]) Vital Signs (Past 12 Hours) Vital Signs Temp Pulse Resp BP Pulse Ox 07/23/19 17:11 98 07/23/19 16:46 37.2 C 146 H 20 134/102 H 97 Laboratory Results Laboratory Results - last 24 hr 07/23/19 07/23/19 17:17 17:17 WBC 8.46 RBC 5.04 Hgb 16.5 Hct 48.3 MCV 95.8 MCH 32.7 MCHC 34.2 RDW Std Deviation 47.6 H RDW Coeff of Cecilio 13.7 Plt Count 284 MPV 8.8 Immature Gran % (Auto) 0.2 Neut % (Auto) 81.1 Lymph % (Auto) 9.7 [place] % (Auto) 8.7 Eos % (Auto) 0.2 Baso % (Auto) 0.1 Immature Gran # (Auto) 0.02 Neut # (Auto) 6.85 H Lymph # (Auto) 0.82 L [place] # (Auto) 0.74 H Eos # (Auto) 0.02 Baso # (Auto) 0.01 Sodium 138 Potassium 3.9 Chloride 104 Carbon Dioxide 23 Anion Gap 11.0 BUN 22 H D Creatinine 1.48 H D Est Cr Clr Drug Dosing 82.2 Est GFR ( Amer) 61.3 Est GFR (Non-Af Amer) 52.9 BUN/Creatinine Ratio 14.5 Glucose 112 H Calcium 9.3 Phosphorus 3.4 Magnesium 2.3 Total Bilirubin 0.7 AST 78 H ALT 95 H Alkaline Phosphatase 73 Troponin I < 0.015 Total Protein 8.1 Albumin 4.3 Globulin 3.8 Albumin/Globulin Ratio 1.1 TSH 6.260 H Free T4 1.[address] head IMPRESSION: 1. Left occipital scalp contusion. No fractures identified 2. No acute intracranial findings ECG Indication: tachycardia Rhythm: atrial flutter Comparison ECG Date: no prior available Code Status & VTE Plan VTE Prophylaxis Plan VTE Prophylaxis will be ordered: Yes PG Care Time/CCT Total # of Minutes Spent Total Time Spent with Patient: Total time spent is greater than 50% in coordination of care (as documented) at patient's floor/unit and/or counseling patient: Coding Level of Care Code 67027 Initial Inpt Care Lvl 3 Diagnoses Atrial flutter with rapid ventricular response I48.92 Syncope R55 Syncope type: unspecified Superficial thrombophlebitis I80.9 (1) Syncope Syncope type: unspecified Qualified Code(s): R55 - Syncope and collapse
[2019-07-23] MEDS ORDERED: ACETAMINOPHEN 325 MG TAB PO PRN (19:27)
[2019-07-23] MEDS ORDERED: ONDANSETRON INJ 2 MG/ML 2 ML VIAL IV PRN (19:27)
[2019-07-23] MEDS: dilTIAZem HCL 125 MG in DEXTROSE 5% 100 ML IV SCH (20:42)
[2019-07-23] MEDS: TAMSULOSIN HCL 0.4 MG CAP PO SCH (20:47)
[2019-07-23] MEDS ORDERED: dilTIAZem HCl 5 MG/ML 5 ML VIAL IV STA (20:59)
[2019-07-23] MEDS ORDERED: dilTIAZem HCl 60 MG TAB PO ONE (21:05)
[2019-07-23] MEDS: TOLTERODINE TARTRATE 2 MG TAB PO SCH (21:27)
[2019-07-23] MEDS ORDERED: RIVAROXABAN 20 MG TAB PO SCH (22:15)
[2019-07-24] MEDS ORDERED: METOPROLOL TARTRATE 1 MG/ML VIAL IV ONE (00:16)
[2019-07-24] MEDS ORDERED: METOPROLOL TARTRATE 1 MG/ML VIAL IV STA (00:53)
[2019-07-24] MEDS: dilTIAZem HCL 125 MG in DEXTROSE 5% 100 ML IV SCH ×3 (02:01→18:24)
[2019-07-24] MEDS: NSS + 20MEQ KCL 20 MEQ/1,000 ML BAG IV SCH ×2 (08:38→18:24)
[2019-07-24] MEDS: TOLTERODINE TARTRATE 2 MG TAB PO SCH ×2 (08:38→20:51)
[2019-07-24] MEDS: RIVAROXABAN 15 MG TAB PO SCH ×2 (09:04→20:51)
--- NOTE | 2019-07-24 10:36 | Hospitalist Progress Note ---
Date of Service July 24, 2019 Assessment & Plan (1) Atrial flutter with rapid ventricular response: admit to PCU Cardizem drip to control HR, better HR today with rates in the 100-120 range patient already on Xarelto for superficial thrombophlebitis, will continue check echocardiogram - EF is slightly reduced, likely from arrhythmia/tachycardia NPO after midnight, plan for CHARLOTTE ablation tomorrow with Dr. Demarco patient agrees (2) Syncope: most likely due to HR in the 200s monitor on tele check echo - no valve disease (3) Superficial thrombophlebitis: less pain and swelling with treatment continue Xarelto BID (4) Acute kidney injury: present on admission Cr was 1.4, could have been due to poor oral intake, syncopal events treated with IV fluids, Cr down to 1.1 today TRUMAN resolved (5) Alcohol abuse: no signs of withdrawal he admits to drinking less the past two weeks started to cut back after he was diagnosed with thrombophlebitis (6) Nicotine abuse: uses snuff every day can offer nicotine patch if needed Admission and Anticipated Discharge Date Admission Date: July 23, 2019 Subjective patient feeling better today, no chest pain, no palpitations HR is better, in the 100-120s on monitor, in atrial flutter discussed with Dr. Modi, will plan for CHARLOTTE ablation tomorrow with Dr. Demarco patient agrees to the procedure he admits that he has been drinking more beer recently with the quarantine he was working shorter days, did not have much to do, could not visit with friends he admitted to drinking 6 or more beers most days the past two months, but then he cut back 2 weeks ago he has not tremors labs checked today, Cr improved to 1.1 from 1.4 Review of Systems Review of Systems: All systems reviewed & are unremarkable except as noted in HPI & below Psychiatric: + depression (difficult time with isolation) Physical Exam Constitutional: + overweight; no acute distress Eyes: PERRL, conjunctivae normal, anicteric sclerae ENMT: external ear and nose normal, oropharynx normal Neck: trachea midline, no thyromegaly Respiratory: normal respiratory effort, lungs clear to auscultation Cardiovascular: Rate/Rhythm: + tachycardic and + irregularly irregular Heart Sounds: normal S1 and normal S2; no murmur Vessels: no JVD Extremities: normal capillary refill and + calf tenderness (right side); no edema Gastrointestinal (Abdomen): normal bowel sounds, soft, nontender, no hepatosplenomegaly Musculoskeletal: no cyanosis or clubbing, extremities motor strength 5/5 Skin: no rashes, warm and dry Neurologic: patellar DTR's 2+ bilat, sensation intact and PERRL, EOMI, accommodation nl, no face palsy, no dysarthria Psychiatric: A+Ox3, euthymic affect Lymphatic: no cervical or axillary lymphadenopathy Results & Data Results & Data ([facility]) Vital Signs (Past 12 Hours) Vital Signs Temp Pulse Pulse Resp BP BP BP 07/24/19 07:44 36.6 C 89 20 93/43 L 94/61 L 07/24/19 05:26 36.5 C 90 18 109/72 07/24/19 01:47 106 H 07/24/19 01:04 132 H 108/78 07/24/19 00:43 128 H 121/76 07/23/19 23:53 36.5 C 136 H 18 128/90 Pulse Ox 07/24/19 07:44 96 07/24/19 05:26 96 07/24/19 01:47 07/24/19 01:04 07/24/19 00:43 07/23/19 23:53 96 Laboratory Results Laboratory Results - last 24 hr 07/23/19 07/23/19 07/24/19 17:17 17:17 09:59 WBC 8.46 RBC 5.04 Hgb 16.5 Hct 48.3 MCV 95.8 MCH 32.7 MCHC 34.2 RDW Std Deviation 47.6 H RDW Coeff of Cecilio 13.7 Plt Count 284 MPV 8.8 Immature Gran % (Auto) 0.2 Neut % (Auto) 81.1 Lymph % (Auto) 9.7 [place] % (Auto) 8.7 Eos % (Auto) 0.2 Baso % (Auto) 0.1 Immature Gran # (Auto) 0.02 Neut # (Auto) 6.85 H Lymph # (Auto) 0.82 L [place] # (Auto) 0.74 H Eos # (Auto) 0.02 Baso # (Auto) 0.01 Sodium 138 138 Potassium 3.9 4.2 Chloride 104 108 H Carbon Dioxide 23 21 Anion Gap 11.0 9.0 BUN 22 H D 15 Creatinine 1.48 H D 1.14 D Est Cr Clr Drug Dosing 82.2 104.8 Est GFR ( Amer) 61.3 84.0 Est GFR (Non-Af Amer) 52.9 72.5 BUN/Creatinine Ratio 14.5 13.3 Glucose 112 H 98 Calcium 9.3 8.7 Phosphorus 3.4 Magnesium 2.3 Total Bilirubin 0.7 AST 78 H ALT 95 H Alkaline Phosphatase 73 Troponin I < 0.015 Total Protein 8.1 Albumin 4.3 Globulin 3.8 Albumin/Globulin Ratio 1.1 TSH 6.260 H Free T4 1.30 Medications Administered Current Inpatient Medications Acetaminophen (Tylenol) 650 mg PO Q4H PRN PRN Reason: Pain or Fever Stop: 08/22/19 19:26 Diltiazem HCl 125 mg/ Dextrose 125 mls @ 5 mls/hr IV .Q24H [facility]; Protocol Stop: 08/22/19 19:26 Last Titration: 07/24/19 14:56 Dose: 15 mg/hr, 15 mls/hr Documented by: Potassium Chloride/Sodium Chloride (Normal Saline W/20 Meq Kcl) 20 meq in 1,000 mls @ 100 mls/hr IV .Q10H [facility] Stop: 08/23/19 07:59 Last Admin: 07/24/19 08:38 Dose: 100 mls/hr Documented by: Ondansetron HCl (Zofran) 4 mg IV Q6H PRN PRN Reason: Nausea Stop: 08/22/19 19:26 Rivaroxaban (Xarelto) 15 mg PO BID [facility] Stop: 08/01/19 23:59 Last Admin: 07/24/19 09:04 Dose: 15 mg Documented by: Tamsulosin HCl (Flomax) 0.4 mg PO HS [facility] Stop: 08/22/19 20:59 Last Admin: 07/23/19 20:47 Dose: 0.4 mg Documented by: Tolterodine Tartrate (Detrol) 2 mg PO BID [facility] Stop: 08/22/19 20:59 Last Admin: 07/24/19 08:38 Dose: 2 mg Documented by: PG Care Time/CCT Total # of Minutes Spent Total Time Spent with Patient: Total time spent is greater than 50% in coordination of care (as documented) at patient's floor/unit and/or counseling patient: Coding Level of Care Code 29564 Subseq Hosp Care Lvl 3 Diagnoses Atrial flutter with rapid ventricular response I48.92 Syncope R55 Syncope type: unspecified Superficial thrombophlebitis I80.9 Acute kidney injury N17.9 Alcohol abuse F10.10 Nicotine abuse Z72.0 (1) Syncope Syncope type: unspecified Qualified Code(s): R55 - Syncope and collapse
[2019-07-24 10:40] LABS: BUN Creatinine Ratio 13.3 (10-20); Calcium 8.7 mg/dl (8.5-10.1); Creatinine Clr Calc Pharmacy 104.8 ml/min; Est GFR (Non-African American) 72.5; Potassium 4.2 mmol/L (3.5-5.1)
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
--- NOTE | 2019-07-24 13:49 | XCELERA ---
[id number]
[2019-07-24 18:01] LABS: Appearance Urine Clear (Clear); Bilirubin Urine Negative (Negative); Blood Urine Negative (Negative); Color Urine Yellow; Glucose Urine UA Negative (Negative); Ketones Urine Negative (Negative); Leukocyte Esterase Urine Negative (Negative); Nitrite Urine Negative (Negative); Protein Urine Negative (Negative); Specific Gravity Urine 1.006 (1.000-1.030); Urobilinogen Urine Negative (Negative); pH Urine 6.5 (4.5-7.5)
[2019-07-24] MEDS: TAMSULOSIN HCL 0.4 MG CAP PO SCH (20:50)
--- NOTE | 2019-07-24 22:09 | Electrocardiogram Report ---
Test Reason : Blood Pressure : / mmHG Vent. Rate : 146 BPM Atrial Rate : 292 BPM P-R Int : 000 ms QRS Dur : 114 ms QT Int : 256 ms P-R-T Axes : 198 -63 -10 degrees QTc Int : 398 ms Atrial flutter with 2:1 A-V conduction Left axis deviation Right bundle branch block Abnormal ECG When compared with ECG of 18-SEP-2014 13:29, Atrial flutter has replaced Sinus rhythm Vent. rate has increased BY 80 BPM Right bundle branch block is now Present Confirmed by Ciaran Modi ([id number]) on 07/24/2019 10:08:41 PM Referred By: REFERRED SELF Confirmed By:Ciaran Modi
[2019-07-25] MEDS: dilTIAZem HCL 125 MG in DEXTROSE 5% 100 ML IV SCH ×2 (02:34→23:12)
[2019-07-25] MEDS: NSS + 20MEQ KCL 20 MEQ/1,000 ML BAG IV SCH ×2 (02:34→23:13)
--- NOTE | 2019-07-25 05:11 | Electrocardiogram Report ---
Test Reason : Blood Pressure : / mmHG Vent. Rate : 278 BPM Atrial Rate : 138 BPM P-R Int : 000 ms QRS Dur : 158 ms QT Int : 174 ms P-R-T Axes : 000 208 000 degrees QTc Int : 374 ms Wide QRS tachycardia , consider atrial flutter with 1:1 conduction Right bundle branch block Abnormal ECG When compared with ECG of 23-JUL-2019 16:43, Vent. rate has increased BY 132 BPM Atrial flutter is now with 1:1 conduction Confirmed by Ciaran Modi ([id number]) on 07/25/2019 5:11:19 AM Referred By: REFERRED SELF Confirmed By:Ciaran Modi
--- NOTE | 2019-07-25 05:12 | Electrocardiogram Report ---
Test Reason : Blood Pressure : / mmHG Vent. Rate : 135 BPM Atrial Rate : 286 BPM P-R Int : 000 ms QRS Dur : 116 ms QT Int : 326 ms P-R-T Axes : 223 -53 -51 degrees QTc Int : 489 ms Atrial flutter with variable A-V block Left axis deviation Incomplete right bundle branch block Nonspecific ST abnormality Abnormal ECG When compared with ECG of 23-JUL-2019 17:08, Vent. rate has decreased BY 143 BPM Confirmed by Ciaran Modi ([id number]) on 07/25/2019 5:12:20 AM Referred By: REFERRED SELF Confirmed By:Ciaran Modi
[2019-07-25] MEDS: TOLTERODINE TARTRATE 2 MG TAB PO SCH ×2 (07:43→20:31)
[2019-07-25] MEDS ORDERED: LIDOCAINE HCL 1% 20 ML VIAL ONE ×2 (10:12→13:28)
[2019-07-25] MEDS ORDERED: fentaNYL citrate 100 MCG/2 ML VIAL ONE (12:46)
[2019-07-25] MEDS ORDERED: MIDAZOLAM HCL 5 MG/ML 1 ML VIAL ONE (12:46)
--- NOTE | 2019-07-25 12:53 | Pre Anesthesia Assessment ---
Date of Service July 25, 2019 Pre Sedation Assessment Vital Signs Temp Pulse Pulse Pulse Resp BP BP 07/25/19 12:40 86 20 142/94 H 07/25/19 11:50 36.8 C 62 18 96/45 L 07/25/19 07:48 36.8 C 121 H 18 106/74 07/25/19 02:53 36.5 C 103 H 18 89/53 L 07/24/19 23:04 36.8 C 75 19 98/66 L 07/24/19 19:32 37.1 C 102 H 19 118/81 07/24/19 15:44 37.0 C 68 18 108/63 Pulse Ox 07/25/19 12:40 94 07/25/19 11:50 97 07/25/19 07:48 94 07/25/19 02:53 95 07/24/19 23:04 96 07/24/19 19:32 95 07/24/19 15:44 96 Cardiovascular + irregularly irregular Respiratory + respiratory effort normal Pre-Sedation Airway Assessment Smoking Status: Never smoker Hx Sleep Apnea: No Short, Thick Neck: No Thyromental Distance: > or= 3.5 Finger Breadths Oral Cavity: + WNL Mallampati Class: III ASA: ASA2 NPO Status Date of Last Intake of Fluids: 07/24/19 Time of Last Intake of Fluids: 22:00 Date of Last Intake of Solid Food: 07/24/19 Time of Last Intake of Solid Foods: 22:00 Procedure Planning Contraindications for Sedation: none Current Medications Reviewed: Yes Notes The planned sedation has been discussed with the patient. Informed Consent was obtained. I have identified the patient, determined the appropriateness of sedation and have assessed the patient immediately prior to the procedure. All medicine(s) and interventions are by my order.
[2019-07-25] MEDS ORDERED: HEPARIN (PORCINE) 1000 UNIT/ML 10 ML (CATH LAB USE ONLY) ONE (13:38)
[2019-07-25] MEDS ORDERED: OXYCODONE/ACETAMINOPHEN 5mg/325mg TAB PO PRN (14:57)
--- NOTE | 2019-07-25 15:02 | Hospitalist Progress Note ---
Date of Service July 25, 2019 Assessment & Plan (1) Atrial flutter with rapid ventricular response: admit to PCU Cardizem drip to control HR, better HR control the past two days with rates in the 100-120 range patient already on Xarelto for superficial thrombophlebitis, will continue check echocardiogram - EF is slightly reduced, likely from arrhythmia/tachycardia plan for CHARLOTTE and ablation procedure this afternoon with Dr Demarco plan to discharge tomorrow morning (2) Syncope: most likely due to HR in the 200s monitor on tele check echo - no valve disease (3) Superficial thrombophlebitis: less pain and swelling with treatment continue Xarelto BID can follow up with Dr. Moore (4) Acute kidney injury: present on admission Cr was 1.4, could have been due to poor oral intake, syncopal events treated with IV fluids, Cr down to 1.1 on 07/23 TRUMAN resolved no further IV fluids (5) Alcohol abuse: no signs of withdrawal he admits to drinking less the past two weeks started to cut back after he was diagnosed with thrombophlebitis (6) Nicotine abuse: uses snuff every day can offer nicotine patch if needed Admission and Anticipated Discharge Date Admission Date: July 23, 2019 Anticipated date of discharge: 07/26/19 Subjective patient feeling fine, no acute issues, waiting to get his CHARLOTTE with ablation this afternoon said that he has not moved his bowels since he was admitted, told him that this can be normal he is making urine, no dyspnea, no cough, no chest pain, no tremors no labs today can stop fluids discussed with Dr. Demarco, patient will probably be confined to bed until 8-9pm after the ablation, will plan to d/c in the morning Review of Systems Review of Systems: All systems reviewed & are unremarkable except as noted in HPI & below Physical Exam Constitutional: + overweight; no acute distress Eyes: PERRL, conjunctivae normal, anicteric sclerae ENMT: external ear and nose normal, oropharynx normal Neck: trachea midline, no thyromegaly Respiratory: normal respiratory effort, lungs clear to auscultation Cardiovascular: Rate/Rhythm: + tachycardic and + irregularly irregular Heart Sounds: normal S1 and normal S2; no murmur Vessels: no JVD Extremities: normal capillary refill and + calf tenderness (right side); no edema Gastrointestinal (Abdomen): normal bowel sounds, soft, nontender, no hepatosplenomegaly Musculoskeletal: no cyanosis or clubbing, extremities motor strength 5/5 Skin: no rashes, warm and dry Neurologic: patellar DTR's 2+ bilat, sensation intact and PERRL, EOMI, accommodation nl, no face palsy, no dysarthria Psychiatric: A+Ox3, euthymic affect Lymphatic: no cervical or axillary lymphadenopathy Results & Data Results & Data ([facility]) Vital Signs (Past 12 Hours) Vital Signs Temp Pulse Pulse Resp BP BP Pulse Ox 07/25/19 13:15 130 H 20 90/76 L 97 07/25/19 13:14 130 H 20 106/75 106/75 97 07/25/19 13:11 120 H 20 125/70 97 07/25/19 13:09 120 H 20 125/70 97 07/25/19 13:07 92 H 20 125/64 97 07/25/19 13:05 105 H 20 86/68 L 97 07/25/19 13:03 105 H 20 92/65 L 97 07/25/19 13:01 100 H 20 104/70 97 07/25/19 12:57 88 20 102/70 97 07/25/19 12:54 88 20 142/102 H 99 07/25/19 12:40 86 20 142/94 H 94 07/25/19 11:50 36.8 C 62 18 96/45 L 97 07/25/19 07:48 36.8 C 121 H 18 106/74 94 Medications Administered Current Inpatient Medications Acetaminophen (Tylenol) 650 mg PO Q4H PRN PRN Reason: Pain or Fever Stop: 08/22/19 19:26 Diltiazem HCl 125 mg/ Dextrose 125 mls @ 15 mls/hr IV .Q8H20M [facility]; Protocol Stop: 08/22/19 19:26 Last Titration: 07/25/19 09:30 Dose: 15 mg/hr, 15 mls/hr Documented by: Ondansetron HCl (Zofran) 4 mg IV Q6H PRN PRN Reason: Nausea Stop: 08/22/19 19:26 Rivaroxaban (Xarelto) 15 mg PO BID [facility] Stop: 08/01/19 23:59 Last Admin: 07/24/19 20:51 Dose: 15 mg Documented by: Tamsulosin HCl (Flomax) 0.4 mg PO HS [facility] Stop: 08/22/19 20:59 Last Admin: 07/24/19 20:50 Dose: 0.4 mg Documented by: Tolterodine Tartrate (Detrol) 2 mg PO BID [facility] Stop: 08/22/19 20:59 Last Admin: 07/25/19 07:43 Dose: 2 mg Documented by: PG Care Time/CCT Total # of Minutes Spent Total Time Spent with Patient: Total time spent is greater than 50% in coordination of care (as documented) at patient's floor/unit and/or counseling patient: Coding Level of Care Code 85037 Subseq Hosp Care Lvl 2 Diagnoses Atrial flutter with rapid ventricular response I48.92 Syncope R55 Syncope type: unspecified Superficial thrombophlebitis I80.9 Acute kidney injury N17.9 Alcohol abuse F10.10 Nicotine abuse Z72.0 (1) Syncope Syncope type: unspecified Qualified Code(s): R55 - Syncope and collapse
--- NOTE | 2019-07-25 15:07 | Electrophysiology Report ---
Date of Service July 25, 2019 Electrophysiology Procedure Electrophysiology Procedure Report Procedure performed: Ablation of supraventricular tachycardia, Complete electrophysiologic testing including pacing from the left atrium via the coronary sinus, 3 dimensional electro anatomical mapping, arrhythmia induction using programmed stimulation. Staff tumbler tender: Martín Demarco MD Indication: The patient is a 54-year-old gentleman who presented to [facility] with an atrial flutter and one-to-one AV conduction. He had previously suffered a syncopal episode.: Based on the nature of his arrhythmia, mildly reduced LV systolic function and his symptoms he was advised to consider catheter based therapy for possible permanent treatment of what appears to be a typical right atrial flutter. Procedure detail: The patient was informed of the risks benefits and alternatives to the intended procedure. He understood which proceed. He was taken to the electrophysiology suite in a fasting state. The preprocedure transesophageal echocardiogram was performed in order to exclude left atrial appendage thrombus. No thrombus was seen. Patient was monitored electrocardiographically throughout today's procedure and conscious sedation was administered per protocol. The right femoral artery was prepped and draped in usual sterile fashion. This area was anesthetized using subcutaneous menstruation lidocaine and Marcaine solution. The right femoral vein was accessed 3 times using modified Seldinger technique and sheaths were placed over guidewires at this site. The sheaths were use of silk tape passage of the EP catheters to the respective chambers under fluoroscopic guidance. This included right ventricular, coronary sinus and right atrial ablation catheter. The patient's baseline tachycardia was characterize. Three mention electro anatomical mapping was also performed in order to characterize the tachycardia. Once the elements of the tachycardia were known radiofrequency lesions were placed in a linear fashion through the caval tricuspid isthmus until the tachycardia terminated. Repeat electro anatomical testing was performed in attempts at arrhythmia induction or also performed using program stimulation and burst atrial pacing. At the conclusion of the case the catheters and sheath were removed. Hemostasis was achieved at the access sites using manual pressure. The patient tolerated procedure well. There were no immediate complications. Findings: Baseline tachycardia cycle length was 241 milliseconds Concealed entrainment of the tachycardia with a short post pacing interval was obtained with pacing the right atrium from the proximal coronary sinus. Pacing from the distal coronary sinus revealed manifest entrainment with a long post pacing interval Three-dimensional electro anatomical mapping also revealed the majority of the cycle length in the right atrium as well as what appeared to be a typical right atrial counterclockwise flutter Ablation: An 8 Albanian 3.5 mm irrigated radiofrequency catheter was then advanced to the caval tricuspid isthmus and linear lesions placed into the tachycardia terminated. BP lesions were placed until bidirectional block through the caval tricuspid isthmus could be confirmed using both pacing and three-dimensional electro anatomical imaging. Post ablation intervals: Cycle length in the atrium 993 milliseconds Cycling in ventricle 995 milliseconds CA interval 161 milliseconds QRS duration 90 milliseconds QT interval 390 milliseconds AH interval 82 milliseconds HV interval 43 milliseconds Av Wenckebach occurred at 360 milliseconds AV node effective refractory period was 300 milliseconds In the baseline state there was poor retrograde conduction with pacing of the ventricle Subsequent to ablation repeat electroanatomic mapping was performed to confirm bidirectional block through the caval tricuspid isthmus. Attempts at arrhythmia induction were also performed using program stimulation as well as burst atrial pacing from both the medial and lateral aspects of the caval tricuspid isthmus down to cycle length of 240 milliseconds Impression: Successful creation of bidirectional block through the caval tricuspid isthmus rendering typical isthmus dependent right atrial flutter noninducible Normal baseline conduction intervals No evidence of dual AV prem physiology or accessory pathway conduction [facility] Electrophysiology codes EP Procedure 1: Electrophysiology: 91697 EPS and Ablation SVT Procedure 2: Electrophysiology: 79561-19 Comp EPS w/LA pacing Procedure 3: Electrophysiology: 51044 Arrhythmia induction Procedure 4: Electrophysiology: 07029 3D mapping PG Moderate Sedation Codes Moderate Sedation Codes Procedure 1: Sedation/Anesthesia: 54429 Mod Sedation by the same physician;Init15 Min Child Age 5 & Up Procedure 2: Sedation/Anesthesia: 38160 Mod Sedation by the same physician; Ea [id number] Minutes
--- NOTE | 2019-07-25 15:07 | Post Anesthesia Assessment ---
Date of Service July 25, 2019 Post Sedation Assessment Vital Signs Temp Pulse Pulse Pulse Pulse Resp BP 07/25/19 13:15 130 H 20 07/25/19 13:14 130 H 20 106/75 07/25/19 13:11 120 H 20 07/25/19 13:09 120 H 20 07/25/19 13:07 92 H 20 07/25/19 13:05 105 H 20 07/25/19 13:03 105 H 20 07/25/19 13:01 100 H 20 07/25/19 12:57 88 20 07/25/19 12:54 88 20 07/25/19 12:40 86 20 07/25/19 11:50 36.8 C 62 18 07/25/19 07:48 36.8 C 121 H 18 07/25/19 02:53 36.5 C 103 H 18 07/24/19 23:04 36.8 C 75 19 07/24/19 19:32 37.1 C 102 H 19 118/81 07/24/19 15:44 37.0 C 68 18 108/63 BP Pulse Ox 07/25/19 13:15 90/76 L 97 07/25/19 13:14 106/75 97 07/25/19 13:11 125/70 97 07/25/19 13:09 125/70 97 07/25/19 13:07 125/64 97 07/25/19 13:05 86/68 L 97 07/25/19 13:03 92/65 L 97 07/25/19 13:01 104/70 97 07/25/19 12:57 102/70 97 07/25/19 12:54 142/102 H 99 07/25/19 12:40 142/94 H 94 07/25/19 11:50 96/45 L 97 07/25/19 07:48 106/74 94 07/25/19 02:53 89/53 L 95 07/24/19 23:04 98/66 L 96 07/24/19 19:32 95 07/24/19 15:44 96 Recovery Score Activity: Moves 2 extremities Respiration: Deep Breath/Cough Circulation: +/-20-49% PreAnes Value Consciousness: Arouseable (by name) Oxygen Saturation: <90% w/ supp O2 Post Anesthesia Score: 5 Discharge Sedation Level of Care: Fast Track Phase II Post Sedation Plan On clinical assessment, the patient appears to have tolerated the sedation without complications. Patient is recovering as anticipated. Patient will continue to be monitored by nursing and may be discharged when sedation discharge criteria are met per below protocol. Upon Completions of procedure up to 15 minutes continue every 5 minute vital signs and the P.A.R. score; then discharge to a Phase I or Fast Track to Phase II per the following guidelines: * Discharge Patient to appropriate Phase II area if PAR is 8 or greater or return to pre- procedure baseline. The post - procedure orders will be as directed. * If PAR score is less than 8 or not return to pre-procedure baseline then patient will follow Phase I monitoring till PAR is reached for Phase II. The Phase I may be done in procedure room or may call to secure a Phase I area. * If naloxone or flumazenil are used for reversal, hold in Phase I for continued monitoring from when last reversal dose was given for a minimum of 60 minutes or longer pending the nurse and/or physician discretion of patient condition before discharge to Phase II. Please call the Sedation Physician to re-evaluate and complete post-note for discharge to Phase II area. Do NOT discharge from procedure sedation or Phase 1 until post- sedation evaluation note is complete by procedure /sedation MD Sedation Discharge Instructions to be given to the patient at discharge to home.
--- NOTE | 2019-07-25 15:23 | Cardiology Consultation ---
Date of Consultation July 25, 2019 Assessment & Plan (1) Atrial flutter with rapid ventricular response: (2) Syncope: (3) Alcohol abuse: ASSESSMENT/PLAN: 1. Atrial flutter with rapid ventricular response: It is very likely that he has occult sleep apnea, primary lung disease or perhaps mild dilation of the right atrium secondary to alcohol abuse. His EKG is suggestive of a typical right atrial flutter. We did discuss options for treatment including medical therapy with antiarrhythmic medications, more aggressive rate control, cardioversion or catheter based therapy. I think would be difficult to achieve significant rate control. Return to sinus rhythm with chemical or electrical means would likely result in recurrence at some point. He has not had documented atrial fibrillation appears to be a good candidate for ablation as primary therapy. We did discuss the risks benefits alternatives and will plan on proceeding. Unfortunately he has not been anticoagulated for the records and timeframe and we do not know with certainty when he developed the atrial flutter. As such, I think a preprocedure transesophageal echocardiogram would be reasonable. 2. Syncope: Likely due to atrial flutter with one-to-one conduction. 3. Mild cardiomyopathy: Mildly reduced. Possibly related to his rapid ventricular rates or even alcohol abuse. No current symptoms suggestive of ischemic heart disease although he certainly is in a demographic where this could be related. . History of Present Illness Reason for Consultation: Atrial flutter Requesting Physician: Ly Attending Physician: Geo Ledesma, History of Present Illness The patient is a 54-year-old gentleman without a known history of cardiac disease who has not been feeling well for some time. Patient has been experiencing symptoms dizziness and lightheadedness and reportedly had a syncopal episode at work. This resulted in a small injury to his occiput. Based on this injury the patient was referred to the emergency room where he was discovered to be in a rapid rhythm. Patient's initial rhythm was quite fast with a heart rate over 200 beats per minute. There is some concern this represented a wide complex tachycardia. However, he did cycle between lower heart rates and obvious narrow complex tachycardia. Review of his EKGs at that time suggests that he did have an atrial flutter with occasional one-to-one conduction. The patient was admitted to the hospital on diltiazem infusion. He had previously been on anticoagulation for recently discovered popliteal thrombus. He described occasional symptoms of mild chest discomfort and breathing difficulty. However none of these were present at the time of my interview. Generally speaking he is an active individual was able to perform moderate activity without other limitations. Does admit to moderate to heavy alcohol use. He has not been aware of any palpitations. He has not been aware of a high heart rate. Allergies Allergy/AdvReac Type Severity Reaction Status Date / Time Penicillins Allergy Severe THROAT Verified 07/23/19 16:55 SWELLING latex Allergy Mild ITCHING Verified 07/23/19 16:55 Home Medications Home Medications Medication Instructions Recorded Confirmed Type tamsulosin 0.4 mg capsule 0.4 mg PO HS #30 cap 10/02/18 07/23/19 History multivitamin 1 tab PO DAILY #30 tab 10/06/18 07/23/19 Rx tolterodine 2 mg tablet 2 mg PO BID 90 Days #180 tab 01/24/19 07/23/19 Rx rivaroxaban 20 mg tablet 20 mg PO DIRECTED 07/23/19 07/23/19 History Patient History Medical History Alcohol abuse BPH (benign prostatic hyperplasia) DVT (deep venous thrombosis) Groin strain (Inactive) Surgical History History of knee surgery History of shoulder surgery Family History Grandfather Myocardial infarction Brother Diabetes Diverticulitis Father Leukemia Kidney stone Mother Cardiac disorder Hypothyroidism Social History Preferred Language: Yemeni Communication Ability: Effective Procurement Director Required: No Beliefs That Will Affect Care: None marital status: Goal Current Living Situation: Alone current occupational status: employed Other Information That Helps Us Care for You: No Feels Safe at Home: Yes Safety Concerns: Feels Safe At This Time Smoking Status: Never smoker Tobacco Type: smokeless tobacco ; Do You Dip or Chew Tobacco: Yes ; Second Hand Exposure: No ; Tobacco Cessation Education Requested by Patient: No Hx Alcohol Use: Yes Alcohol type: beer Hx Substance Use: No Review of Systems Review of Systems: All systems reviewed & are unremarkable except as noted in HPI & below Physical Exam Physical Exam: The patient is alert and oriented. Mood and affect appeared normal. He answered all questions appropriately. HEENT: Pupils are equal and reactive to light and accommodation. Extraocular movements are intact. The sclerae are anicteric. Poor dentition Neuro: Cranial nerves intact Neck: Patient's neck is supple. He has palpable carotid pulses bilaterally without bruits on auscultation. There is no evidence of jugular venous distention. The thyroid is not enlarged. Lungs: Clear to auscultation bilaterally. He has good air movement without use of accessory muscles. No rales wheezes or rhonchi. Cardiac: Heart demonstrates an irregular rate and rhythm. Normal S1 and S2. No murmurs on examination. Pulses: The patient has palpable radial pulses bilaterally that are equal in intensity Extremities: There was no evidence of hypoperfusion. There is no cyanosis or clubbing. There is no edema. Skin: I did not appreciate any rashes on examination today. Results & Data ([facility]) Vital Signs (Past 12 Hours) Vital Signs Temp Pulse Pulse Resp BP BP Pulse Ox 07/25/19 15:10 60 20 110/83 97 07/25/19 13:15 130 H 20 90/76 L 97 07/25/19 13:14 130 H 20 106/75 106/75 97 07/25/19 13:11 120 H 20 125/70 97 07/25/19 13:09 120 H 20 125/70 97 07/25/19 13:07 92 H 20 125/64 97 07/25/19 13:05 105 H 20 86/68 L 97 07/25/19 13:03 105 H 20 92/65 L 97 07/25/19 13:01 100 H 20 104/70 97 07/25/19 12:57 88 20 102/70 97 07/25/19 12:54 88 20 142/102 H 99 07/25/19 12:40 86 20 142/94 H 94 07/25/19 11:50 36.8 C 62 18 96/45 L 97 07/25/19 07:48 36.8 C 121 H 18 106/74 94 Laboratory Results Abnormal Lab Results 07/24/19 17:00 Urine Color Yellow Urine Appearance Clear Urine pH 6.5 Ur Specific Henry 1.006 Urine Protein Negative Urine Glucose (UA) Negative Urine Ketones Negative Urine Blood Negative Urine Nitrite Negative Urine Bilirubin Negative Urine Urobilinogen Negative Ur Leukocyte Esterase Negative Diagnostic Findings CT of the head obtained at the time admission did not reveal any acute intracranial process Echocardiogram revealed mildly reduced LV systolic function. PG Care Time/CCT Total # of Minutes Spent Total Time Spent with Patient: Total time spent is greater than 50% in coordination of care (as documented) at patient's floor/unit and/or counseling patient: Coding Level of Care Code 99863 Office/OBS Consult Lvl 4 Diagnoses Atrial flutter with rapid ventricular response I48.92 Syncope R55 Syncope type: unspecified Alcohol abuse F10.10 (1) Syncope Syncope type: unspecified Qualified Code(s): R55 - Syncope and collapse
[2019-07-25] MEDS: TAMSULOSIN HCL 0.4 MG CAP PO SCH (20:31)
[2019-07-25] MEDS: RIVAROXABAN 15 MG TAB PO SCH ×2 (20:32→21:48)
--- NOTE | 2019-07-26 06:28 | Electrocardiogram Report ---
Test Reason : Blood Pressure : / mmHG Vent. Rate : 068 BPM Atrial Rate : 068 BPM P-R Int : 164 ms QRS Dur : 094 ms QT Int : 410 ms P-R-T Axes : 074 -40 -23 degrees QTc Int : 435 ms Sinus rhythm with Premature atrial complexes Left axis deviation T wave abnormality, consider inferior ischemia Abnormal ECG When compared with ECG of 23-JUL-2019 17:18, Sinus rhythm has replaced Atrial flutter Vent. rate has decreased BY 67 BPM Right bundle branch block is no longer Present Confirmed by Ciaran Modi ([id number]) on 07/26/2019 6:27:41 AM Referred By: REFERRED SELF Confirmed By:Ciaran Modi
[2019-07-26] MEDS: TOLTERODINE TARTRATE 2 MG TAB PO SCH (08:08)
[2019-07-26] MEDS ORDERED: METOPROLOL TARTRATE 25 MG TAB PO SCH (09:30)
--- NOTE | 2019-07-26 09:39 | Cardiology Progress Note ---
Date of Service July 26, 2019 Assessment & Plan (1) Atrial flutter with rapid ventricular response: (2) Syncope: (3) Alcohol abuse: ASSESSMENT/PLAN: 1. Atrial flutter with rapid ventricular response: He underwent successful ablation on 07/25/[address] Demarco. He had presented in atrial flutter with one-to-one conduction after syncopal event. Continue anticoagulation without interruption for at least 3 weeks however anticoagulation is indicated for superficial thrombophlebitis for a longer course according to primary care. Long-term anticoagulation is no longer warranted for atrial flutter now that he has undergone ablation. Beta-heidi has been initiated for atrial tachycardia this morning. 2. Syncope: Likely due to atrial flutter with one-to-one conduction. 3. Mild cardiomyopathy: Will repeat echocardiogram in the office, prior to his 1 month follow-up. Discharge on metoprolol succinate. 4. Alcohol abuse: Refrain from alcohol consumption given the fact that it may have contributed to his atrial flutter and cardiomyopathy. 5. Bicuspid aortic valve: Aortic valve appeared bicuspid on transesophageal echo. We discussed the diagnosis. He has no children. Recommend first-degree relatives be screened. He does have siblings. Can further discuss CT angiogram of the thoracic aorta as an outpatient to evaluate for aortopathy. 6. Disposition: Follow-up in the cardiology office in 3-4 weeks with echoed prior to the appointment. Echocardiogram will be arranged and cardiology office will work on scheduling appointment. He was advised to refrain from driving for the next 3 days. He should avoid from lifting more than 10 lb for the next 5 days. Patient care communicated with Dr. Dee of the primary hospitalist service. Admission and Anticipated Discharge Date Admission Date: July 23, 2019 Anticipated date of discharge: 07/26/19 Subjective Yesterday he underwent transesophageal ECHO by Dr. Demarco, which demonstrated bicuspid aortic valve. He also underwent successful atrial flutter ablation. He tolerated the procedure well. He denies chest pain, shortness of breath, palpitations, syncope, near-syncope, or bleeding. He has not yet ambulated in the hallway. Review of systems: As above. Physical Exam Physical Exam: Gen.: No acute distress. Alert and oriented. HEENT: Anicteric sclera. Neck: No JVD. Cardiac: Regular. Normal S1-S2. No murmurs, rubs, or gallops. Pulmonary: Clear to auscultation bilaterally without wheezes, rales, or rhonchi. Abdomen: Soft, nontender, nondistended, with normoactive bowel sounds. No bruits noted. Extremities: Right femoral access site with ecchymosis but no hematoma. No significant pitting edema or cyanosis. Psychiatric: Affect appears appropriate. Results & Data ([facility]) Vital Signs (Past 12 Hours) Vital Signs Temp Pulse Resp BP Pulse Ox 07/26/19 07:57 36.6 C 72 18 103/70 96 07/26/19 04:25 36.8 C 73 20 99/64 L 96 07/25/19 23:36 36.7 C 73 18 90/52 L 98 Diagnostic Findings Transesophageal echo images personally reviewed from 07/25/2019: Aortic valve appears bicuspid. Ablation report reviewed from 07/25/2019: Ablation of atrial flutter performed with radiofrequency lesions placed in a linear fashion through the caval tricuspid isthmus by Dr. Demarco. Telemetry personally reviewed: There was an episode of nonsustained atrial tachycardia this morning but no further atrial flutter. Otherwise, rhythm has been sinus. Medications Administered Current Inpatient Medications Acetaminophen (Tylenol) 650 mg PO Q4H PRN PRN Reason: Pain or Fever Stop: 08/22/19 19:26 Metoprolol Tartrate (Lopressor) 25 mg PO BID [facility] Stop: 08/25/19 09:29 Ondansetron HCl (Zofran) 4 mg IV Q6H PRN PRN Reason: Nausea Stop: 08/22/19 19:26 Oxycodone/Acetaminophen (Percocet 5mg/325mg) 1 - 2 tab PO Q6H PRN PRN Reason: Moderate-Severe Pain Stop: 08/08/19 14:56 Rivaroxaban (Xarelto) 15 mg PO BID [facility] Stop: 08/01/19 23:59 Last Admin: 07/25/19 21:48 Dose: 15 mg Documented by: Tamsulosin HCl (Flomax) 0.4 mg PO HS [facility]ANNESA Stop: 08/22/19 20:59 Last Admin: 07/25/19 20:31 Dose: 0.4 mg Documented by: Tolterodine Tartrate (Detrol) 2 mg PO BID [facility] Stop: 08/22/19 20:59 Last Admin: 07/26/19 08:08 Dose: 2 mg Documented by: PG Care Time/CCT Total # of Minutes Spent Total Time Spent with Patient: Total time spent is greater than 50% in coordination of care (as documented) at patient's floor/unit and/or counseling patient: Coding Level of Care Code 52056 Subseq Hosp Care Lvl 3 Diagnoses Atrial flutter with rapid ventricular response I48.92 Syncope R55 Syncope type: unspecified Alcohol abuse F10.10 (1) Syncope Syncope type: unspecified Qualified Code(s): R55 - Syncope and collapse
[2019-07-26] MEDS: RIVAROXABAN 15 MG TAB PO SCH (09:45)
--- NOTE | 2019-07-26 13:59 | Discharge Summary ---
Date of Service July 26, 2019 Admission HPI Per Admitting Provider 54 yo male with recent history of superficial thrombophlebitis, currently on Xarelto, presented to the ED via EMS due to two separate syncopal episodes while at work. He said that Tuesday, 07/19, he noticed that he had some dizziness towards the end of his work day. 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 He was able to drive home. He called his PCP office, they recommended that he take it easy over the weekend, if any further symptoms occurred then he should go to the ED. He had a good weekend, no issues, but he admits that he did not do much. This morning he was placed on light duty by his boss. The morning went well. In the afternoon he again had to use the forklift and when he got up he felt dizzy. He rested the remainder of the day and then it was close to quitting time and he walked to the back to turn off the fans. He reached out to turn off the first switch and the next thing he knew he was on the ground. He stood back up, walked a little ways and then felt the back of his head, he was bleeding. He then felt a simon to his head and passed out. His coworkers brought him to the break room, he was diaphoretic and had some chest pain. EMS arrived and got him on the ambulance. Once he was on the monitor he was found to have a heart rate in the 200's. In the ED his BP was stable and he was mentating normally, he was given amiodarone bolus to try to break the atrial flutter. There was consideration of cardioversion but his HR came down to the 140's. Discussed case with cardiology, they will evaluate for [place] cardioversion tomorrow. No heart history, specifically no h/o MS, arrhythmia, valve disease. He says that his mother had atrial fibrillation. Principal Diagnosis Atrial flutter with RVR Discharge Exam Constitutional WD/WN, vitals as above Eyes EOM intact bilaterally; no conjunctival abnormality ENMT external ear and nose normal, oropharynx normal Neck trachea midline, no thyromegaly normal visual inspection Respiratory normal respiratory effort, lungs clear to auscultation no respiratory distress Cardiovascular RRR, no murmur, no edema Gastrointestinal (Abdomen) Inspection/Auscultation: abdomen normal to inspection; abdomen not distended Musculoskeletal no cyanosis or clubbing, extremities motor strength 5/5 Skin no rashes, warm and dry Neurologic moves all extremities and awake Psychiatric Orientation: alert, oriented to person and cooperative Discharge Data Allergies Allergy/AdvReac Type Severity Reaction Status Date / Time Penicillins Allergy Severe THROAT Verified 07/23/19 16:55 SWELLING latex Allergy Mild ITCHING Verified 07/23/19 16:55 Consultations 07/23/19 18:27 ED Decision to Admit Stat 07/23/19 19:27 Consult Cardiology Routine 07/24/19 13:18 Consult Cardiac Electrophysiology Routine Procedures Performed Operation Date: 07/25/19 13:00 Actual Procedures p Echo Transesophageal(Not Applicable) - Naveen Demarco MD s Echo Color Flow(Not Applicable) - Naveen Demarco MD Operation Date: 07/25/19 13:15 Actual Procedures p EPS + Ablation for SVT Flutter - Naveen Demarco MD s LA Pacing (Add-On) - Naveen Demarco MD s 3D Mapping (Carto) - Naveen Demarco MD Ordered Studies 07/23/19 16:43 CT head/brain wo con Stat 07/25/19 06:45 EP Lab Images for PACS ONCE Hospital Course (1) Atrial flutter with rapid ventricular response: Admitted to PCU. Cardizem drip to control HR, better HR control the past two days with rates in the 100-120 range - Underwent aflutter ablation with Jossue Demarco on 07/24 with successful ablation. - Patient already on Xarelto for superficial thrombophlebitis, will continue -> Only needs 3 weeks per cardiology. After that, PCP can adjust for the thrombophlebitis. check echocardiogram - EF is slightly reduced, likely from arrhythmia/tachycardia (2) Syncope: Most likely due to HR in the 200s. check echo - no valve disease - No events after procedure. (3) Superficial thrombophlebitis: Less pain and swelling with treatment continue Xarelto BID can follow up with Dr. Moore (4) Acute kidney injury: present on admission Cr was 1.4, could have been due to poor oral intake, syncopal events treated with IV fluids, Cr down to 1.1 on 07/23 TRUMAN resolved no further IV fluids (5) Alcohol abuse: No signs of withdrawal. He reports drinking less the past two weeks. Started to cut back after he was diagnosed with thrombophlebitis. (6) Nicotine abuse: Uses snuff every day. Encouraged to quit. Total Time Total Time Spent Total Time Spent (In Minutes): 35 Discharge Plan Discharge Items Patient Disposition: Home - Self-Care Reason For Visit: ATRIAL FLUTTER WITH RVR Discharge Diagnosis: Atrial flutter with fast heart rate Activity: Resume your previous activity Non-emergency contact: Primary Care Provider and [employer] Call non-emergency contact if: your symptoms worsen Follow-up/Referrals: Isidoro Moore III, MD [Primary Care Provider] - Naveen Demarco MD [Physician] - (Please see Dr. Demarco in 2 weeks.) Diet: Heart Healthy Addtl Attending Provider Instructions: You were admitted to the hospital with a heart rate called atrial flutter. Dr. Demarco performed an ablation to help keep your heart out of this rhythm. You tolerated the procedure well and it was successful. This procedure works 90% of the time, so this is great news! You will need to be on the blood thinner for at least 1 more month, and you should not stop it until you get approval from Dr. Demarco to stop it. Please see him in the office in 2 weeks to be sure you are doing well. For your blood thinner, Xarelto, please take 15 mg (fifteen milligrams) two times per day until 08/02/2019 (one more week), then you switch to 20 mg ONE TIME per day. This will treat the blood clot in your leg as well as keep you from having any issues from your heart. If you have medication questions, please call Dr. Moore's office right away. ACTIVITY RECOMMENDATIONS: It is common to feel weak and fatigue for a few days. * Do not drive or operate any motorized equipment for the next three days. * Limit stair usage (2 or 3 trips a day only) for the next three days. * Do not lift anything heavier than 10 pounds for the next 5 days. * Do not engage in vigorous exercise or any sports for the next five days. * You may shower the day after your procedure, but do not immerse the area for three days. Cleanse the site gently with soap and water. SPECIAL CARE INSTRUCTIONS: * You may replace the pressure dressing or band-aid the morning after the procedure. * After your procedure, it is normal to have a small bruise or small lump at the site. Examine your site daily for any change in the bruise or lump, redness, swelling, drainage or numbness. Notify your doctor if any change. BLEEDING: * If there is a small amount of bleeding at the site, lie down and apply firm pressure with a clean cloth for ten minutes. When the bleeding stops, lie quietly keeping the procedure limb straight for six hours. Notify your doctor as soon as possible. * If the bleeding does not stop after ten minutes or if there is a large amount of bleeding or spurting, call 911 immediately. Continue to lie down and hold firm pressure until help arrives. SKIN IRRITATION: * You may experience some redness and/or swelling in the area where radiation was administered. If any skin irritation occurs, please contact your family physician. FOLLOW UP VISIT: 1. Follow up with Cardiolgy in 3-4 weeks with echo prior. Cardiology office will call you with date/time of appointments. 2. Continue Xarelto as outlined by primary care. Pending Studies at Discharge: No Stand-Alone Forms: [facility], Smoking Cessation Medications and DC Order Prescriptions: New metoprolol succinate 25 mg Tablet Extended Release 24 Hr 25 mg PO QAM Qty: 30 RF: 0 Continued tolterodine 2 mg tablet 2 mg PO BID 90 Days Qty: 180 RF: 1 tamsulosin 0.4 mg capsule 0.4 mg PO HS Qty: 30 RF: 0 multivitamin tablet 1 tab PO DAILY Qty: 30 RF: 0 Changed Xarelto 20 mg tablet 15 mg PO BID Qty: 0 RF: 0 Discharge Orders: Discharge Order (Routine); Ordered 07/26/19 Ordered By: Wilbur Dee Admission Data Admit Date/Time: 07/23/19 18:11 Attending Provider: Wilbur Dee Admit Provider: Geo Ledesma Primary Care Provider: Isidoro Moore III Other Providers: Naveen Demarco ; Wilbur Dee Other Interventions: Discharge Summary Assessment (RN) Last Done: 07/26/19 11:28 DC Date/Time DO NOT enter until pt leaves facility: 07/26/19 12:16 Coding Level of Care Code D/C Day Management >30 mins Diagnoses Atrial flutter with rapid ventricular response I48.92 Syncope R55 Syncope type: unspecified Superficial thrombophlebitis I80.9 Acute kidney injury N17.9 Alcohol abuse F10.10 Nicotine abuse Z72.0
--- NOTE | 2019-07-27 08:49 | XCELERA ---
[id number]
[2019-07-27] MEDS ORDERED: METOPROLOL SUCC 25MG EXT REL TAB PO SCH (09:00)
== END 2019-07-26 12:16 | disposition home or self-care (01) | DRG 274 ==
LOC: ED 16:31 → 2S 18:11 → SUATTDRO 18:11 → 2S 18:47

== ENCOUNTER 2021-11-11 17:26 | Observation (INO) ==
--- NOTE | 2021-11-11 17:50 | ED Triage Note ---
Date of Service November 11, 2021 History of Present Illness This patient was briefly evaluated while in triage. An abbreviated physical exam was performed. This patient is a 56-year-old Male with complex past medical history that presents to the ED with complaints of Saw dentist on tuesday. Notes he has a root attached to nasal cavity. Cannot see oral surgeon until the . Referred to here today for oral surgery evaluation. On clindamycin since tuesday. Left upper molar region. No pain medication. No blood thinners. Physical Exam GENERAL: 65 year old male. In no acute distress. SKIN: No lesions or rashes. MOUTH: Fair dentition. No edema. HEART: Regular rate and rhythm. LUNGS: Clear to auscultation. NEURO: Alert and oriented. No deficits. MUSCULOSKELETAL: No deformities to inspection of the extremities. PSYCH: Patient is pleasant and answers all questions appropriately. Initial orders for labs and / or imaging were placed and patient was placed in the waiting area until a bed is available. Please see further documentation for the full ED course.
[2021-11-11 18:46] LABS: Basophils # (auto) 0.02 K/uL (0-0.2); Basophils % (auto) 0.4 %; Eosinophils # (auto) 0.09 K/uL (0-0.50); Eosinophils % (auto) 1.6 %; Hematocrit (blood only) 42.7 % (40.1-51.0); Hemoglobin 14.4 g/dl (14.0-18.0); Immature Granulocytes # (auto) 0.01 K/uL (0.00-0.02); Immature Granulocytes % (auto) 0.2 %; Lymphocytes # (auto) 0.99 K/uL (1.2-3.4); Lymphocytes % (auto) 18.1 %; Mean Corpuscular Hemoglobin 32.2 pg (25.0-34.0); Mean Corpuscular Hgb Conc 33.7 g/dL (32.0-36.0); Mean Corpuscular Volume 95.5 fL (80.0-100.0); Mean Platelet Volume 8.7 fL (9.4-12.4); Monocytes # (auto) 0.55 K/uL (0.24-0.82); Monocytes % (auto) 10.1 %; Neutrophils % (auto) 69.6 %; Platelet Count 236 K/uL (130-400); RDW Coefficient of Variation 13.1 % (11.5-14.5); RDW Standard Deviation 45.9 fL (36.4-46.3); Red Blood Count 4.47 M/uL (4.63-6.08); White Blood Count 5.46 K/ul (4.8-10.8)
[2021-11-11 19:11] LABS: Albumin Globulin Ratio 1.7 (0.9-2); Albumin Level 4.3 gm/dl (3.4-5.0); Bilirubin,Total 0.9 mg/dl (0.2-1.0); Calcium 8.9 mg/dl (8.5-10.1); Creatinine Clr Calc Pharmacy 123.5 ml/min; Est GFR (African American) 103.3 ml/min; Est GFR (Non-African American) 89.1 ml/min; Globulin 2.5 gm/dl (2.5-4.0); Potassium 3.8 mmol/L (3.5-5.1); Total Protein 6.8 gm/dl (6.0-8.3)
--- NOTE | 2021-11-11 19:27 | Emergency Department Note ---
History of Present Illness General Chief complaint: Dental/Oral Stated complaint: REF BY DENTIST, TOOTH PAIN, JAW PAIN Time Seen by Provider: 11/11/21 19:13 History of Present Illness Maximum Pain Intensity: 8 This is a 56-year-old male that presents to the emergency department via private vehicle with complaints of "referred by dentist, tooth pain/jaw pain". The patient notes over the past several days he has been experiencing left-sided dental pain. He points to the left posterior superior molar region as a location of pain. He saw his dentist on Tuesday. He was started on clindamycin. Pain is now worsening. He notes pain radiating into the left side of the face and to the left eye region. He notes despite the antibiotics his symptoms worsen. He is concerned because his oral surgery follow-up is not until 2 weeks from now. He was referred here today by the dentist to seek oral surgery evaluation. Home Medications Medication Instructions Recorded Confirmed Type multivitamin 1 tab PO DAILY #30 tabs 10/06/18 11/03/21 Rx tolterodine 2 mg tablet 2 mg PO BID 90 days #180 tabs 02/12/21 11/03/21 Rx tamsulosin 0.4 mg capsule 0.4 mg PO DAILY #90 caps 07/06/21 11/03/21 Rx metoprolol succinate 25 mg 25 mg PO QAM #90 tabs 08/31/21 11/03/21 Rx tablet,extended release 24 hr levothyroxine 50 mcg tablet 50 mcg PO DAILY #30 tabs 10/30/21 11/03/21 Rx cyanocobalamin (vitamin B-12) 1,000 mcg PO DAILY 11/03/21 11/03/21 History 1,000 mcg tablet Allergies Allergy/AdvReac Type Severity Reaction Status Date / Time Penicillins Allergy Severe THROAT Verified 11/03/21 10:51 SWELLING latex Allergy Mild ITCHING Verified 11/03/21 10:51 Past Med/Surg History Medical History Alcohol abuse Atrial flutter with rapid ventricular response Bicuspid aortic valve BPH (benign prostatic hyperplasia) Cardiomyopathy DVT (deep venous thrombosis) Groin strain Left wrist sprain Pulmonary embolism and infarction Surgical History History of knee surgery History of shoulder surgery S/P ablation of atrial flutter Family History Grandfather Myocardial infarction Brother Diabetes Diverticulitis Father Leukemia Kidney stone Mother Cardiac disorder Hypothyroidism Denies family history of Ovarian cancer Prostate cancer Breast cancer Colorectal cancer Social History Smoking Status: Never smoker Tobacco Type: Smokeless Tobacco (Dip or Chew) Second Hand Exposure: No; Hx Alcohol Use: Yes Alcohol type: beer Hx Substance Use: No Preferred Language: Belarusian Communication Ability: Effective Visual Impairment: Limited Hearing Ability: Normal Medical Insurance Biller Required: No Beliefs That Will Affect Care: None marital status: Goal Current Living Situation: Alone current occupational status: employed Feels Safe at Home: Yes Childhood Exposure to Second-Hand Smoke: Yes caffeine: No during the past year weight has: remained stable Dental Care, Regularly: Yes Seatbelt Use: always Sunscreen Use: Yes Assistive Devices: None Review of Systems A total of 10 systems reviewed and were otherwise negative Physical Exam Vital Signs Vital Signs - 24 hr 11/11/21 17:44 11/11/21 22:40 Temperature 36.5 C Temperature Source Temporal Artery Scan Pulse Rate 68 Pulse Rate [Right Finger] 59 L Pulse Rhythm [Right Finger] Regular Pulse Strength [Right Finger] Normal Respiratory Rate 18 18 Respiratory Effort / Characteristics Non-Labored Spontaneous Retracting Non-Labored Respiratory Depth Normal Normal Respiratory Pattern Regular Blood Pressure 142/93 H Blood Pressure [Right Arm] 111/79 Blood Pressure Mean 109 Blood Pressure Mean [Right Arm] 89 Blood Pressure Position Sitting Pulse Oximetry 98 97 Oxygen Delivery Method Room Air Room Air Sepsis Recent Fever Within 48 Hours No Sepsis New/Unexplained Change in Mental Status No Sepsis Action Taken by Nursing No Action Required VITAL SIGNS - Vital signs and nursing notes were reviewed. Stable and afebrile. GENERAL -56-year-old male appearing his stated age who is in no acute distress. Communicates well with provider and answers questions appropriately. SKIN - Without rashes. No meningeal or petechial rash. HEAD - NC/AT. EYES - PERRL with EOMI bilaterally. Sclera anicteric. EARS - No deformities of external structures noted on gross examination bilaterally. No pain elicited with palpation of the tragus bilaterally. External auditory canals without discharge or otorrhea. Tympanic membranes pearly anthony without retraction or bulging. No fluid or purulent material visualized behind the TM. Handle of malleus, umbo, cone of light, pars tensa/flaccid all easily visualized. NOSE - Midline and without cyanosis. No epistaxis or purulent drainage noted. Septum midline without deviation or septal hematoma noted. MOUTH/OROPHARYNX - Without perioral cyanosis. Buccal mucosa pink and moist and without leukoplakia. Tongue midline with equal elevation of palate bilaterally. No tonsillar hypertrophy, erythema, or exudates noted. Fair dentition noted. Left posterior superior molars are in poor repair. The 2 posterior most molars on the left superior dentition are darkened and the posterior most molar is missing the posterior aspect. There is no drainage present. NECK - Neck with FROM. No evidence of Ludwigs angina. No nuchal rigidity. LUNGS - Chest wall symmetric without accessory muscle use, intercostals retractions, or central cyanosis. Normal vesicular breath sounds CTA B/L. No wheezes, rales, or rhonchi appreciated. CARDIAC - RRR EXTREMITIES - No clubbing or peripheral cyanosis. NEUROLOGIC - Cranial nerves II through XII grossly intact. PSYCH - A&O, and cooperates fully with examiner. Pt is very pleasant and interacts well with examiner. Course Administered Medications Acetaminophen (Acetaminophen 500 Mg Tab) 1,000 mg PO Q8H [facility] Stop: 12/12/21 00:00 Last Admin: 11/12/21 00:24 Dose: 1,000 mg Documented By: MARY Metronidazole (Flagyl) 500 mg in 100 mls @ 100 mls/hr IV Q8H [facility] Stop: 11/14/21 01:59 Last Admin: 11/12/21 01:54 Dose: 100 mls/hr Documented By: DARIN Levofloxacin/Dextrose (Levaquin/D5w) 750 mg in 150 mls @ 100 mls/hr IV Q24H [facility] Stop: 11/14/21 00:00 Last Admin: 11/12/21 00:12 Dose: 100 mls/hr Documented By: MARY Sodium Chloride (Nss 1000ml) 1,000 mls @ 100 mls/hr IV .Q10H [facility] Stop: 11/12/21 09:14 Last Admin: 11/12/21 00:12 Dose: 100 mls/hr Documented By: MARY Tolterodine Tartrate (Tolterodine Tartrate 2 Mg Tab) 2 mg PO BID VANNESA Stop: 12/11/21 23:14 Last Admin: 11/12/21 00:23 Dose: 2 mg Documented By: MARY Discontinued Medications Clindamycin Phosphate (Cleocin/D5w) 600 mg in 50 mls @ 100 mls/hr IV NOW ONE Stop: 11/11/21 22:13 Last Infusion: 11/11/21 23:00 Dose: 0 mls/hr Documented By: Admin: 11/11/21 22:34 Dose: 100 mls/hr Documented By: AGGIE Morphine Sulfate (Morphine Sulfate 4 Mg/Ml 1 Ml Carp\\Vial) 4 mg IV NOW STA Stop: 11/11/21 22:23 Last Admin: 11/11/21 22:33 Dose: 4 mg Documented By: AGGIE Medical Decision Making Laboratory Data Result diagrams: 11/11/21 18:20 11/11/21 18:20 Lab Results 11/11/21 11/11/21 11/11/21 Range/Units 18:20 18:20 19:43 WBC 5.46 (4.8-10.8) K/ul RBC 4.47 L (4.63-6.08) M/uL Hgb 14.4 (14.0-18.0) g/dl Hct 42.7 (40.1-51.0) % MCV 95.5 (80.0-100.0) fL MCH 32.2 (25.0-34.0) pg MCHC 33.7 (32.0-36.0) g/dL RDW Std Deviation 45.9 (36.4-46.3) fL RDW Coeff of Cecilio 13.1 (11.5-14.5) % Plt Count 236 (130-400) K/uL MPV 8.7 L (9.4-12.4) fL Immature Gran % (Auto) 0.2 % Neut % (Auto) 69.6 % Lymph % (Auto) 18.1 % [place] % (Auto) 10.1 % Eos % (Auto) 1.6 % Baso % (Auto) 0.4 % Neut # (Auto) 3.80 (1.4-6.5) K/uL Lymph # (Auto) 0.99 L (1.2-3.4) K/uL [place] # (Auto) 0.55 (0.24-0.82) K/uL Eos # (Auto) 0.09 (0-0.50) K/uL Baso # (Auto) 0.02 (0-0.2) K/uL Immature Gran # (Auto) 0.01 (0.00-0.02) K/uL PT 11.5 (9.0-12.0) Seconds INR 1.1 (0.9-1.1) APTT 28.0 (21.0-31.0) Seconds PTT Ratio 1.0 Sodium 140 (136-145) mmol/L Potassium 3.8 (3.5-5.1) mmol/L Chloride 107 (98-107) mmol/L Carbon Dioxide 25 (21-32) mmol/L Anion Gap 8 (3-11) BUN 19 (6-23) mg/dl Creatinine 0.95 (0.6-1.4) mg/dl Est Cr Clr Drug Dosing 123.5 ml/min Est GFR ( Amer) 103.3 ml/min Est GFR (Non-Af Amer) 89.1 ml/min BUN/Creatinine Ratio 20.0 (10-20) Glucose 82 (70-99(Fasting)) mg/dl Calcium 8.9 (8.5-10.1) mg/dl Total Bilirubin 0.9 (0.2-1.0) mg/dl AST 19 (13-39) U/L ALT 18 (7-52) U/L Alkaline Phosphatase 46 (34-104) U/L Total Protein 6.8 (6.0-8.3) gm/dl Albumin 4.3 (3.4-5.0) gm/dl Globulin 2.5 (2.5-4.0) gm/dl Albumin/Globulin Ratio 1.7 (0.9-2) SARS-CoV-2, RNA, NAAT (NEGATIVE) 11/11/21 Range/Units 22:40 WBC (4.8-10.8) K/ul RBC (4.63-6.08) M/uL Hgb (14.0-18.0) g/dl Hct (40.1-51.0) % MCV (80.0-100.0) fL MCH (25.0-34.0) pg MCHC (32.0-36.0) g/dL RDW Std Deviation (36.4-46.3) fL RDW Coeff of Cecilio (11.5-14.5) % Plt Count (130-400) K/uL MPV (9.4-12.4) fL Immature Gran % (Auto) % Neut % (Auto) % Lymph % (Auto) % [place] % (Auto) % Eos % (Auto) % Baso % (Auto) % Neut # (Auto) (1.4-6.5) K/uL Lymph # (Auto) (1.2-3.4) K/uL [place] # (Auto) (0.24-0.82) K/uL Eos # (Auto) (0-0.50) K/uL Baso # (Auto) (0-0.2) K/uL Immature Gran # (Auto) (0.00-0.02) K/uL PT (9.0-12.0) Seconds INR (0.9-1.1) APTT (21.0-31.0) Seconds PTT Ratio Sodium (136-145) mmol/L Potassium (3.5-5.1) mmol/L Chloride (98-107) mmol/L Carbon Dioxide (21-32) mmol/L Anion Gap (3-11) BUN (6-23) mg/dl Creatinine (0.6-1.4) mg/dl Est Cr Clr Drug Dosing ml/min Est GFR ( Amer) ml/min Est GFR (Non-Af Amer) ml/min BUN/Creatinine Ratio (10-20) Glucose (70-99(Fasting)) mg/dl Calcium (8.5-10.1) mg/dl Total Bilirubin (0.2-1.0) mg/dl AST (13-39) U/L ALT (7-52) U/L Alkaline Phosphatase (34-104) U/L Total Protein (6.0-8.3) gm/dl Albumin (3.4-5.0) gm/dl Globulin (2.5-4.0) gm/dl Albumin/Globulin Ratio (0.9-2) SARS-CoV-2, RNA, NAAT NEGATIVE (NEGATIVE) Imaging Data Radiologist's Impression: Face CT 11/11/21 19:[address] WITHOUT CONTRAST CLINICAL HISTORY: L sided facial pain/dental pain COMPARISON STUDY: Head CT July 23, 2019. TECHNIQUE: A maxillofacial CT was performed without IV contrast. Coronal and sagittal reformats were viewed. Automated exposure control was utilized for the study. A dose lowering technique was utilized adhering to the principles of ALARA. FINDINGS: Visualized portions of the intracranial contents are unremarkable. Multiple dental amalgams are noted. Several teeth are absent. There are several suspected dental caries, suboptimally assessed on this exam. There is a periapical lucency/abscess associated with the left second maxillary molar. There is also lucency adjacent to the left first maxillary molar. No adjacent soft tissue abscess identified on this unenhanced exam. However, there is moderate polypoid mucosal thickening of the inferior left maxillary sinus. Epiglottis is normal. Parotid and submandibular glands are unremarkable. No abnormalities identified within visualized portions of the upper neck on unenhanced study. Mastoid air cells are clear. Orbits are unremarkable. IMPRESSION: 1. Periapical lucencies/abscesses associated with the left maxillary molars. No adjacent soft tissue abscess on unenhanced exam. However, moderate mucosal thickening of the left maxillary sinus which could be related to the periapical abscess. 2. Multiple suspected dental caries, suboptimally assessed on this exam. ACT 112: Negative or not required by law. Electronically signed by: Dariusz Wagoner M.D. 11/11/2021 8:37 PM MDM Narrative Patient was seen and evaluated as above in room D04. Review was performed of nursing notes and vital signs. I did review pertinent previous visits and patient history. After obtaining a thorough history and physical examination the above work up was performed. Patient presents to us today for evaluation of ongoing left upper dental pain that is now radiating to the left side of the face and his left eye. He clinically appears well and nontoxic on examination but does appear to be in pain. The patient notes he was referred here today by his dentist for oral surgery evaluation. Options of care were discussed with the patient. IV access was established. Labs were drawn. Patient was initially evaluated in the triage region and labs were ordered. They reveal no leukocytosis or concerning anemia. No emergent metabolic disturbance. COVID testing negative. I discussed presentation with the on-call oral surgeon, Dr. Wilkinson. We agreed to proceed with CT imaging of the face. We will proceed with noncontrast images to start. CT imaging as above. There are comments of periodical lucencies/abscesses associated with the left maxillary molars. There is moderate mucosal thickening of the left maxillary sinus. I suspect that this is related to the patient's dentition and is likely infectious. I then discussed this again with Dr. Wilkinson. Recommendation was IV antibiotics with plan for extraction of the infected upper molars. Patient will be admitted to the medical service and cleared for surgery. He will have formal OMFS evaluation tomorrow. Recommendation is n.p.o. until formal evaluation with likely surgical intervention. IV clindamycin was ordered. It is felt that the benefit outweighs risk. I did discuss the case with the hospitalist. Please refer to further documentation regarding his stay. Patient amenable to plan of care. I did order some IV analgesics for the patient while here in the ED as well. GCS: 15 In the evaluation and treatment of this patient, the following differential diagnoses were considered: Periapical Abscess, Osteonecrosis of the Jaw, Dental Fracture, Dental Caries, Juan's Angina, Vincent's Angina, Facial Cellulitis, Among others. Impression & Plan Left-sided face pain, Dental abscess, Odontalgia, Sinus mucosal thickening Discharge Plan Visit Data Chief Complaint: Dental/Oral Stated Complaint: REF BY DENTIST, TOOTH PAIN, JAW PAIN ED Provider: Chandu Herman ED Midlevel Provider: Oumar Mayers Discharge Problem: Left-sided face pain, Dental abscess, Odontalgia, Sinus mucosal thickening Patient Disposition: Admitted As Inpatient Condition: Good Discharge Instructions Interventions: ED Discharge Assessment Last Done: 11/12/21 01:07
[2021-11-11 20:06] LABS: INR 1.1 (0.9-1.1); Prothrombin Time 11.5 Seconds (9.0-12.0)
--- NOTE | 2021-11-11 20:39 | CT Scan Report ---
MAXILLOFACIAL CT WITHOUT CONTRAST CLINICAL HISTORY: L sided facial pain/dental pain COMPARISON STUDY: Head CT July 23, 2019. TECHNIQUE: A maxillofacial CT was performed without IV contrast. Coronal and sagittal reformats were viewed. Automated exposure control was utilized for the study. A dose lowering technique was utiliz ed adhering to the principles of ALARA. FINDINGS: Visualized portions of the intracranial contents are unremarkable. Multiple dental amalgams are noted. Several teeth are absent. There are several suspected dental caries, suboptimally assesse d on this exam. There is a periapical lucency/abscess associated with the left second maxillary molar . There is also lucency adjacent to the left first maxillary molar. No adjacent soft tissue abscess i dentified on this unenhanced exam. However, there is moderate polypoid mucosal thickening of the infe rior left maxillary sinus. Epiglottis is normal. Parotid and submandibular glands are unremarkable. N o abnormalities identified within visualized portions of the upper neck on unenhanced study. Mastoid air cells are clear. Orbits are unremarkable. IMPRESSION: 1. Periapical lucencies/abscesses associated with the left maxillary molars. No adjacent soft tissue abscess on unenhanced exam. However, moderate mucosal thickening of the left maxillary sinus which co uld be related to the periapical abscess. 2. Multiple suspected dental caries, suboptimally assessed on this exam. ACT 112: Negative or not required by law. Electronically signed by: Dariusz Wagoner M.D. 11/11/2021 8:37 PM
[2021-11-11] MEDS ORDERED: CLINDAMYCIN/D5W 600 MG/50 ML BAG IV ONE (21:44)
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
[2021-11-11] MEDS ORDERED: MoRPHine SULFATE 4 MG/ML 1 ML CARP\\VIAL IV STA (22:22)
[2021-11-11] MEDS ORDERED: KETOROLAC TROMETHAMINE 15 MG/ML VIAL IV PRN (23:07)
[2021-11-11] MEDS ORDERED: MoRPHine SULFATE 2 MG/ML CARP IV PRN (23:07)
[2021-11-11] MEDS ORDERED: SODIUM CHLORIDE 0.9% 1000ML 1,000 ML IV SCH (23:15)
[2021-11-12] MEDS ORDERED: levoFLOXacin/D5W 750 MG/150 ML BAG IV SCH
[2021-11-12] MEDS: TOLTERODINE TARTRATE 2 MG TAB PO SCH ×2 (00:23→07:58)
[2021-11-12] MEDS: ACETAMINOPHEN 500 MG TAB PO SCH ×2 (00:24→07:49)
[2021-11-12] MEDS: metroNIDAZOLE 500 MG/100 ML BAG IV SCH ×2 (01:54→09:43)
[2021-11-12] MEDS ORDERED: KETOROLAC TROMETHAMINE 15 MG/ML VIAL IV PRN (03:18)
[2021-11-12] MEDS ORDERED: LEVOTHYROXINE SODIUM 50 MCG TABLET PO SCH (06:30)
[2021-11-12 07:54] LABS: Hemoglobin 13.2 g/dl (14.0-18.0); Mean Corpuscular Hemoglobin 31.7 pg (25.0-34.0); Mean Corpuscular Volume 96.2 fL (80.0-100.0); Mean Platelet Volume 8.6 fL (9.4-12.4); Platelet Count 197 K/uL (130-400); RDW Coefficient of Variation 13.4 % (11.5-14.5); RDW Standard Deviation 47.2 fL (36.4-46.3); Red Blood Count 4.16 M/uL (4.63-6.08); White Blood Count 3.77 K/ul (4.8-10.8)
[2021-11-12] MEDS: METOPROLOL SUCC 25MG EXT REL TAB PO SCH ×2 (07:58→08:01)
[2021-11-12 08:15] LABS: BUN Creatinine Ratio 19.6 (10-20); Calcium 8.9 mg/dl (8.5-10.1); Chol HDL Ratio 2.6 (0-5); Creatinine Clr Calc Pharmacy 107.6 ml/min; Est GFR (African American) 94.8 ml/min; Est GFR (Non-African American) 81.8 ml/min; Magnesium 1.9 mg/dl (1.7-2.4); Potassium 4.3 mmol/L (3.5-5.1)
[2021-11-12 08:46] LABS: Estimated Average Glucose 100 mg/dl; Hemoglobin A1C 5.1 % (4.5-5.6)
--- NOTE | 2021-11-12 08:54 | Hospitalist Progress Note ---
Date of Service November 12, 2021 Assessment & Plan (1) Dental abscess: Plan: 56yo male with a history of atrial fibrillation (s/p ablation), HLD, DVT/PE, hypothyroidism, BPH presents with a few-day history of left-sided dental pain after failing outpatient treatment with oral clindamycin. Reportedly saw dentist 2 days prior to admit and placed on PO Clindamycin for upcoming dental procedure in 2 weeks Left molar abscesses Vitals stable, no notable lab abnormalities Failed outpatient treatment with oral clindamycin; patient received one dose of clindamycin IV in ED CT face: left maxillary molar abscesses w/o adjacent soft tissue abscess, though with mucosal thickening of the L maxillary sinus possibly a/w abscesses Will discontinue clindamycin due to high resistance rates with oral molly and outpatient treatment failure Blood cultures ordered Unasyn not an option due to reported anaphylactic reaction to penicillins; will instead start: Metronidazole 500mg IV q8h Levofloxacin 750mg IV q24h OMFS consulted (called and left the consult information with the OMFS answering service) Pain control plan: APAP 1000mg PO q8h scheduled Toradol 10mg IV q6h prn moderate pain Morphine 2mg q2h prn severe pain NPO until eval by Dr Wilkinson -- messaged to ensure aware of the consult Will check EKG/CXR pre-op in case of OR given cardiac history Cardiomyopathy/Atrial flutter s/p ablation -Follows with Dr Modi, also with dilated aortic root * CTA chest by Red Modi with small nonocclusive chronic pulmonary embolus within the RLL, no evidence for an acute PE. *Did note small focal wedge- shaped density within base of RLL, could represent a pulmonary infarct or scar and rec CT 6 months to ensure resolution Prior labs show low antithrombic III activity and + factor V leiden mutation - Did complete 3 months AC for superficial thrombophlebitis in the past, will place on Heparin SQ while inpatient, probably should be on indefinite. Will discuss with patient Rate controlled on admission --Previously been drinking larger amounts of alcohol 4-6 beers day, reported to have cut back Not on anticoagulation at home -- per cards note, patient the superficial thrombophlebitis treated with AC June 2019 for 3 months) Home metoprolol held while NPO, restart when appropriate History of DVT/PE Not on anticoagulation; patient has an appointment with hematology at the end of November to discuss possibly starting anticoagulation (completed 3 months AC for superficial thrombophlebitis); will hold off for now No tachycardia or tachypnea, patient afebrile, no CP or SOB (HR actually on lower side) Outpatient follow-up recommended HLD: last lipid profile (10/26/2021) wnl, no additional intervention indicated Hypothyroidism: home regimen held while NPO, restart when appropriate appears recently started on 25mcg daily at office visit with PCP in August 2021, increased to 50mcg after repeat check still elevated 10/26 FEN: NPO midnight, NSS @100mL/hr Code status: full code DVT ppx: SCDs Consults: OMFS Dispo: med/surg (2) Dyslipidemia: (3) S/P ablation of atrial fibrillation: (4) Hypothyroidism: Admission and Anticipated Discharge Date Admission Date: November 11, 2021 Subjective Eval this morning doing well pain controlled with ordered medications had seen dentist on tuesday, sent rx for clindamycin but pain progressed has been difficult to eat, not eating much in the past couple of days due to pain called office, answering service, dentist called him back and requested him to come to ER and request Dr Wilkinson. has not seen Dr Wilkinson yet but was told possibly would need cardiac clearance given his cardiac history (cardiomyopathy, bicuspid aortic valve). recently started synthroid for hypothyroidism, increased to 50mcg. denied any chest pain or palpitations does have a hematoma to his left abdomen that has not changed in size since injury couple weeks ago and will need f/u PCP outpatient. Mildly uncomfortable but tolerable had been using tylenol at home for pain along with sensodyne toothpaste and mouth rinse. no fevers/chills. Regarding thrombophlebitis, RLE in past. Was to see hematology/oncology in November (Dr Lyn) to discuss anticogaultion.. Discussed I see some abnormal prior valuves, will use Heparin Sq while inpatient Physical Exam Physical Exam: General: WD/WN obese male sitting up in bed, NAD HEENT: head normocephalic, atraumatic, mm slightly dry, several molars with fillings, left upper molars tender to palpation but without fluctuant pocket to suggest abscess, no purulent drainage mild submental lymphadenopathy on the left Resp: CTAB, no w/c/r, 95% on RA CV: RRR (slightly bradycardic, rate 58bpm), systolic murmur, no rub/gallop, no pitting edema, calves nontender, pulses palpable bilateral LE GI+ BS, obese, fist size area to left mid abdomen, firm, minimally tender (reported hematoma, prior trauma) : no muñiz MSK/Neuro: moves all extremities, no focal deficits Psych: AOx3, cooperative Skin: warm, dry d Results & Data Results & Data ([facility]) Vital Signs (Past 12 Hours) Vital Signs Temp Pulse Pulse Resp BP BP BP 11/12/21 08:00 57 L 106/69 11/12/21 05:46 36.6 C 56 L 12 87/60 L 11/12/21 01:48 11/12/21 01:48 36.4 C L 56 L 16 112/78 11/12/21 01:07 54 L 18 102/72 11/12/21 00:00 60 18 111/80 11/11/21 22:40 59 L 18 111/79 Pulse Ox O2 Del Method 11/12/21 08:00 95 Room Air 11/12/21 05:46 98 Room Air 11/12/21 01:48 Room Air 11/12/21 01:48 98 Room Air 11/12/21 01:07 98 Room Air 11/12/21 00:00 98 Room Air 11/11/21 22:40 97 Room Air Laboratory Results 11/12/21 11/12/21 11/12/21 Range/Units 07:33 07:33 07:33 WBC 3.77 L (4.8-10.8) K/ul RBC 4.16 L (4.63-6.08) M/uL Hgb 13.2 L (14.0-18.0) g/dl Hct 40.0 L (40.1-51.0) % MCV 96.2 (80.0-100.0) fL MCH 31.7 (25.0-34.0) pg MCHC 33.0 (32.0-36.0) g/dL RDW Std Deviation 47.2 H (36.4-46.3) fL RDW Coeff of Cecilio 13.4 (11.5-14.5) % Plt Count 197 (130-400) K/uL MPV 8.6 L (9.4-12.4) fL Immature Gran % (Auto) % Neut % (Auto) % Lymph % (Auto) % Jack % (Auto) % Eos % (Auto) % Baso % (Auto) % Neut # (Auto) (1.4-6.5) K/uL Lymph # (Auto) (1.2-3.4) K/uL Jack # (Auto) (0.24-0.82) K/uL Eos # (Auto) (0-0.50) K/uL Baso # (Auto) (0-0.2) K/uL Immature Gran # (Auto) (0.00-0.02) K/uL PT (9.0-12.0) Seconds INR (0.9-1.1) APTT (21.0-31.0) Seconds PTT Ratio Sodium 137 (136-145) mmol/L Potassium 4.3 (3.5-5.1) mmol/L Chloride 105 (98-107) mmol/L Carbon Dioxide 27 (21-32) mmol/L Anion Gap 5 (3-11) BUN 20 (6-23) mg/dl Creatinine 1.02 (0.6-1.4) mg/dl Est Cr Clr Drug Dosing 107.6 ml/min Est GFR ( Amer) 94.8 ml/min Est GFR (Non-Af Amer) 81.8 ml/min BUN/Creatinine Ratio 19.6 (10-20) Glucose 91 (70-99(Fasting)) mg/dl Estimat Average Glucose 100 mg/dl Hemoglobin A1c 5.1 (4.5-5.6) % Calcium 8.9 (8.5-10.1) mg/dl Magnesium 1.9 (1.7-2.4) mg/dl Total Bilirubin (0.2-1.0) mg/dl AST (13-39) U/L ALT (7-52) U/L Alkaline Phosphatase (34-104) U/L Total Protein (6.0-8.3) gm/dl Albumin (3.4-5.0) gm/dl Globulin (2.5-4.0) gm/dl Albumin/Globulin Ratio (0.9-2) Triglycerides 70 (0-150) mg/dl Cholesterol 115 (0-200) mg/dl LDL Cholesterol, Calc 56 mg/dl VLDL Cholesterol, Calc 14 (0-30) mg/dl HDL Cholesterol 45 mg/dl Cholesterol/HDL Ratio 2.6 (0-5) SARS-CoV-2, RNA, NAAT (NEGATIVE) 11/11/21 11/11/21 11/11/21 Range/Units 22:40 19:43 18:20 WBC (4.8-10.8) K/ul RBC (4.63-6.08) M/uL Hgb (14.0-18.0) g/dl Hct (40.1-51.0) % MCV (80.0-100.0) fL MCH (25.0-34.0) pg MCHC (32.0-36.0) g/dL RDW Std Deviation (36.4-46.3) fL RDW Coeff of Cecilio (11.5-14.5) % Plt Count (130-400) K/uL MPV (9.4-12.4) fL Immature Gran % (Auto) % Neut % (Auto) % Lymph % (Auto) % Jack % (Auto) % Eos % (Auto) % Baso % (Auto) % Neut # (Auto) (1.4-6.5) K/uL Lymph # (Auto) (1.2-3.4) K/uL Jack # (Auto) (0.24-0.82) K/uL Eos # (Auto) (0-0.50) K/uL Baso # (Auto) (0-0.2) K/uL Immature Gran # (Auto) (0.00-0.02) K/uL PT 11.5 (9.0-12.0) Seconds INR 1.1 (0.9-1.1) APTT 28.0 (21.0-31.0) Seconds PTT Ratio 1.0 Sodium 140 (136-145) mmol/L Potassium 3.8 (3.5-5.1) mmol/L Chloride 107 (98-107) mmol/L Carbon Dioxide 25 (21-32) mmol/L Anion Gap 8 (3-11) BUN 19 (6-23) mg/dl Creatinine 0.95 (0.6-1.4) mg/dl Est Cr Clr Drug Dosing 123.5 ml/min Est GFR ( Amer) 103.3 ml/min Est GFR (Non-Af Amer) 89.1 ml/min BUN/Creatinine Ratio 20.0 (10-20) Glucose 82 (70-99(Fasting)) mg/dl Estimat Average Glucose mg/dl Hemoglobin A1c (4.5-5.6) % Calcium 8.9 (8.5-10.1) mg/dl Magnesium (1.7-2.4) mg/dl Total Bilirubin 0.9 (0.2-1.0) mg/dl AST 19 (13-39) U/L ALT 18 (7-52) U/L Alkaline Phosphatase 46 (34-104) U/L Total Protein 6.8 (6.0-8.3) gm/dl Albumin 4.3 (3.4-5.0) gm/dl Globulin 2.5 (2.5-4.0) gm/dl Albumin/Globulin Ratio 1.7 (0.9-2) Triglycerides (0-150) mg/dl Cholesterol (0-200) mg/dl LDL Cholesterol, Calc mg/dl VLDL Cholesterol, Calc (0-30) mg/dl HDL Cholesterol mg/dl Cholesterol/HDL Ratio (0-5) SARS-CoV-2, RNA, NAAT NEGATIVE (NEGATIVE) 11/11/21 Range/Units 18:20 WBC 5.46 (4.8-10.8) K/ul RBC 4.47 L (4.63-6.08) M/uL Hgb 14.4 (14.0-18.0) g/dl Hct 42.7 (40.1-51.0) % MCV 95.5 (80.0-100.0) fL MCH 32.2 (25.0-34.0) pg MCHC 33.7 (32.0-36.0) g/dL RDW Std Deviation 45.9 (36.4-46.3) fL RDW Coeff of Cecilio 13.1 (11.5-14.5) % Plt Count 236 (130-400) K/uL MPV 8.7 L (9.4-12.4) fL Immature Gran % (Auto) 0.2 % Neut % (Auto) 69.6 % Lymph % (Auto) 18.1 % Jack % (Auto) 10.1 % Eos % (Auto) 1.6 % Baso % (Auto) 0.4 % Neut # (Auto) 3.80 (1.4-6.5) K/uL Lymph # (Auto) 0.99 L (1.2-3.4) K/uL Jack # (Auto) 0.55 (0.24-0.82) K/uL Eos # (Auto) 0.09 (0-0.50) K/uL Baso # (Auto) 0.02 (0-0.2) K/uL Immature Gran # (Auto) 0.01 (0.00-0.02) K/uL PT (9.0-12.0) Seconds INR (0.9-1.1) APTT (21.0-31.0) Seconds PTT Ratio Sodium (136-145) mmol/L Potassium (3.5-5.1) mmol/L Chloride (98-107) mmol/L Carbon Dioxide (21-32) mmol/L Anion Gap (3-11) BUN (6-23) mg/dl Creatinine (0.6-1.4) mg/dl Est Cr Clr Drug Dosing ml/min Est GFR ( Amer) ml/min Est GFR (Non-Af Amer) ml/min BUN/Creatinine Ratio (10-20) Glucose (70-99(Fasting)) mg/dl Estimat Average Glucose mg/dl Hemoglobin A1c (4.5-5.6) % Calcium (8.5-10.1) mg/dl Magnesium (1.7-2.4) mg/dl Total Bilirubin (0.2-1.0) mg/dl AST (13-39) U/L ALT (7-52) U/L Alkaline Phosphatase (34-104) U/L Total Protein (6.0-8.3) gm/dl Albumin (3.4-5.0) gm/dl Globulin (2.5-4.0) gm/dl Albumin/Globulin Ratio (0.9-2) Triglycerides (0-150) mg/dl Cholesterol (0-200) mg/dl LDL Cholesterol, Calc mg/dl VLDL Cholesterol, Calc (0-30) mg/dl HDL Cholesterol mg/dl Cholesterol/HDL Ratio (0-5) SARS-CoV-2, RNA, NAAT (NEGATIVE) Diagnostic Findings Face CT 11/11/21 19:[address] WITHOUT CONTRAST CLINICAL HISTORY: L sided facial pain/dental pain COMPARISON STUDY: Head CT July 23, 2019. TECHNIQUE: A maxillofacial CT was performed without IV contrast. Coronal and sagittal reformats were viewed. Automated exposure control was utilized for the study. A dose lowering technique was utilized adhering to the principles of ALARA. FINDINGS: Visualized portions of the intracranial contents are unremarkable. Multiple dental amalgams are noted. Several teeth are absent. There are several suspected dental caries, suboptimally assessed on this exam. There is a periapical lucency/abscess associated with the left second maxillary molar. There is also lucency adjacent to the left first maxillary molar. No adjacent soft tissue abscess identified on this unenhanced exam. However, there is moderate polypoid mucosal thickening of the inferior left maxillary sinus. Epiglottis is normal. Parotid and submandibular glands are unremarkable. No abnormalities identified within visualized portions of the upper neck on unenhanced study. Mastoid air cells are clear. Orbits are unremarkable. IMPRESSION: 1. Periapical lucencies/abscesses associated with the left maxillary molars. No adjacent soft tissue abscess on unenhanced exam. However, moderate mucosal thickening of the left maxillary sinus which could be related to the periapical abscess. 2. Multiple suspected dental caries, suboptimally assessed on this exam. ACT 112: Negative or not required by law. Electronically signed by: Dariusz Wagoner M.D. 11/11/2021 8:37 PM PG Care Time/CCT Total # of Minutes Spent Total Time Spent with Patient: Total time spent is greater than 50% in coordination of care (as documented) at patient's floor/unit and/or counseling patient: Coding Diagnoses Dental abscess K04.7 Dyslipidemia E78.5 S/P ablation of atrial fibrillation Z98.890; Z86.79 Hypothyroidism E03.9
[2021-11-12] MEDS ORDERED: TAMSULOSIN HCL 0.4 MG CAP PO SCH (09:00)
[2021-11-12] MEDS ORDERED: SODIUM CHLORIDE 0.9% 1000ML 1,000 ML IV SCH (09:45)
--- NOTE | 2021-11-12 12:32 | Oral/Maxillofacial Consult ---
Date of Consultation November 12, 2021 History of Present Illness Attending Physician: Timmy Allison History of Present Illness Oral Maxillofacial Surgery Exam Present Complaint: I have pain/swelling/drainage from my infected upper teeth and left maxillary sinus Symptoms have been ongoing for a while. Go so bad he was admitted for pain control and IV antibiotics Oral Exam: Finding-Poor OH care, painful (not now # 14) Imaging: X RAY from dentist and CT scan The sinus, Left congested --radiolucent associated with tooth in first molar position MAXILLOFACIAL CT WITHOUT CONTRAST CLINICAL HISTORY: L sided facial pain/dental pain TECHNIQUE: A maxillofacial CT was performed without IV contrast. Coronal and sagittal reformats were viewed. Automated exposure control was utilized for the study. A dose lowering technique was utilized adhering to the principles of ALARA. FINDINGS: Visualized portions of the intracranial contents are unremarkable. Multiple dental amalgams are noted. Several teeth are absent. There are several suspected dental caries, suboptimally assessed on this exam. There is a p eriapical lucency/abscess associated with the left second maxillary molar. There is also lucency adjacent to the left first maxillary molar. No adjacent soft tissue abscess identified on this unenhanced exam. However, there is moderate polypoid mucosal thickening of the inferior left maxillary sinus. Epiglottis is normal. Parotid and submandibular glands are unremarkable. No abnormalities identified within visualized portions of the upper neck on unenhanced study. Mastoid air cells are clear. Orbits are unremarkable. IMPRESSION: 1. Periapical lucencies/abscesses associated with the left maxillary molars. No adjacent soft tissue abscess on unenhanced exam. However, moderate mucosal thickening of the left maxillary sinus which could be related to the periapical abscess. 2. Multiple suspected dental caries, suboptimally assessed on this exam. Soft tissue: floor of the mouth, tongue, hard/soft palate, posterior pharyngeal area all with in normal limits, No Facial swelling, no oral swelling, no sinus pressure now that antibiotics given. Oral Care: Overall oral care is poor Occlusion: Class II deep bite TMJ exam: No pop, clicking, pain, good ROM, No history of TMJ injury or dysfunction Periodontal exam: Poor gingival tissue with evidence of periodontal pathology. Head/Neck exam: Neck is supple, FROM, Able to extend and flex neck w/o difficulty, no masses, no abnormalities, no airway issues, ?evidence of sleep apnea. Treatment Plan: His dentist set up an appointment with Dr Mueller There is no swelling now. No nasal congestion. Pain much improved. OK for D/C today and follow up for extraction with Dr Mueller GOVIND. The following teeth are decayed and fractured and removal is indicated GOVIND:# 14 Risks discussed: Bleeding,Pain,swelling,infection, dry socket, delayed healing, nerve injury to face,lips,tongue,chin area which could be permanent (rare). TMJ, jaw stiffness, change in bite (rare), ear pain (referred). Sinus problems like fistula or infection. Need to leave a small root fragment in place to avoid injury to nerve or sinus. Home care reviewed: tooth brushing, rinsing, follow up care with Dr Mueller diet=[id number] dental or as tolerated Discussed activity level, driving/work while on Rx pain Meds. Surgery to be set up as per Dr Mueller`s office Rx--Vicodin 5/325 Clinda 300 mg 1 TID x 10 days OK for Discharge today as symptoms greatly improved, no swelling, no percussion pain and No pressure in sinus area (left) Allergies Allergy/AdvReac Type Severity Reaction Status Date / Time Penicillins Allergy Severe THROAT Verified 11/03/21 10:51 SWELLING latex Allergy Mild ITCHING Verified 11/03/21 10:51 Home Medications Medication Instructions Recorded Confirmed Type multivitamin 1 tab PO DAILY #30 tabs 10/06/18 11/03/21 Rx tolterodine 2 mg tablet 2 mg PO BID 90 days #180 tabs 02/12/21 11/03/21 Rx tamsulosin 0.4 mg capsule 0.4 mg PO DAILY #90 caps 07/06/21 11/03/21 Rx metoprolol succinate 25 mg 25 mg PO QAM #90 tabs 08/31/21 11/03/21 Rx tablet,extended release 24 hr levothyroxine 50 mcg tablet 50 mcg PO DAILY #30 tabs 10/30/21 11/03/21 Rx cyanocobalamin (vitamin B-12) 1,000 mcg PO DAILY 11/03/21 11/03/21 History 1,000 mcg tablet clindamycin HCl 300 mg capsule 300 mg PO Q8H 10 days #30 caps 11/12/21 Rx hydrocodone 5 mg-acetaminophen 325 1 tab PO Q8H PRN pain #20 tabs 11/12/21 Rx mg tablet Patient History Medical History Alcohol abuse Atrial flutter with rapid ventricular response Bicuspid aortic valve BPH (benign prostatic hyperplasia) Cardiomyopathy DVT (deep venous thrombosis) Groin strain Left wrist sprain Pulmonary embolism and infarction Surgical History History of knee surgery History of shoulder surgery S/P ablation of atrial flutter Family History Grandfather Myocardial infarction Brother Diabetes Diverticulitis Father Leukemia Kidney stone Mother Cardiac disorder Hypothyroidism Denies family history of Ovarian cancer Prostate cancer Breast cancer Colorectal cancer Social History Smoking Status: Never smoker Tobacco Type: Smokeless Tobacco (Dip or Chew) Second Hand Exposure: No; Do You Dip or Chew Tobacco: Yes; Tobacco Cessation Education Requested by Patient: No Hx Alcohol Use: Yes Alcohol type: beer Hx Substance Use: No Preferred Language: Setswana Communication Ability: Effective Visual Impairment: Limited Hearing Ability: Normal Electrical Instrument Repairer Required: No Beliefs That Will Affect Care: None marital status: Goal Current Living Situation: Alone current occupational status: employed Other Information That Helps Us Care for You: No Feels Safe at Home: Yes Safety Concerns: Feels Safe At This Time Childhood Exposure to Second-Hand Smoke: Yes caffeine: No during the past year weight has: remained stable Dental Care, Regularly: Yes Seatbelt Use: always Sunscreen Use: Yes Assistive Devices: Glasses Results & Data ([facility]) Vital Signs (Past 12 Hours) Vital Signs Temp Pulse Pulse Resp BP BP Pulse Ox 11/12/21 08:00 57 L 106/69 95 11/12/21 05:46 36.6 C 56 L 12 87/60 L 98 11/12/21 01:48 11/12/21 01:48 36.4 C L 56 L 16 112/78 98 11/12/21 01:07 54 L 18 102/72 98 O2 Del Method 11/12/21 08:00 Room Air 11/12/21 05:46 Room Air 11/12/21 01:48 Room Air 11/12/21 01:48 Room Air 11/12/21 01:07 Room Air PG Care Time/CCT Total # of Minutes Spent Total Time Spent with Patient: Total time spent is greater than 50% in coordination of care (as documented) at patient's floor/unit and/or counseling patient: Coding Level of Care Code INT OBSERVATION CARE 30M LVL 1
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
--- NOTE | 2021-11-12 16:03 | XRay Report ---
XR chest 1V portable CLINICAL HISTORY: pre-op TECHNIQUE: Single frontal radiograph of the chest was obtained. Comparison: None available at the time of this dictation. FINDINGS: No lines and tubes are seen. The cardiomediastinal silhouette is normal. The lungs are clear. No evid ence of pleural effusion or pneumothorax. IMPRESSION: No acute chest disease. ACT 112: Negative or not required by law. Electronically signed by: Geo Crawford M.D. 11/12/2021 4:01 PM
--- NOTE | 2021-11-12 17:53 | Electrocardiogram Report ---
Test Reason : Blood Pressure : / mmHG Vent. Rate : 055 BPM Atrial Rate : 055 BPM P-R Int : 166 ms QRS Dur : 140 ms QT Int : 466 ms P-R-T Axes : 072 -38 -07 degrees QTc Int : 445 ms Sinus bradycardia Left axis deviation Right bundle branch block Abnormal ECG When compared with ECG of 25-JUL-2019 16:04, Premature atrial complexes are no longer Present Right bundle branch block is now Present Confirmed by Martín Demarco ([id number]) on 11/12/2021 5:53:14 PM Referred By: REFERRED SELF Confirmed By:Sebastian Demarco
[2021-11-12] MEDS ORDERED: HEPARIN SOD 5,000 UNIT/0.5 ML VIAL SQ SCH (21:00)
--- NOTE | 2021-11-12 22:17 | Billing Data ---
Date of Service November 12, 2021 Coding Level of Care Code INT OBSERVATION CARE 70M LVL 3
== END 2021-11-12 15:13 | disposition home or self-care (01) ==
LOC: 3W 17:26 → ED 17:26 → SUATTDRO 23:20 → 3W 11-12 01:07

== ENCOUNTER 2022-01-29 17:51 | Inpatient (IN) ==
[~2022-01-29 17:51] MED LIST changes: -CINN1CAP2 PO; -CYAN10005 PO; -GARL10007 PO; -MULTTAB58 PO; -OMEG10007 PO; -TAMS0.4C38 PO; -TOLT2TAB9 PO; +metroNIDAZOLE 500 MG/100 ML BAG IV SCH
--- NOTE | 2022-01-29 18:23 | Emergency Department Note ---
Impression & Plan Acute appendicitis ED Provider Note CHIEF COMPLAINT: Abdominal pain, appendicitis HISTORY OF PRESENTING ILLNESS: This is a 56-year-old male who presents to the emergency department by private vehicle with complaint of abdominal pain that has been ongoing since yesterday. The patient saw his PCP today for this abdominal pain and had an outpatient CT performed. He was contacted regarding C T results, which did show acute appendicitis and was advised to go to the ER for further evaluation. He reports the pain is constant, worse with walking and bumping in the car, better with rest, he currently rates his pain 8/10. He has not taken anything for pain today. He has had some nausea off and on but no vomiting. He denies any fevers or chills. He denies any history of previous abdominal surgery. He does note a history of cardiomyopathy, atrial flutter and bicuspid aortic valve, as well as history of DVT and long-term on Xarelto, with concern for possible recently developed PE about 2 months ago. He last ate solid food yesterday morning and last drank water several hours ago today. He has not taken his Xarelto for the past 2 days because he has not been eating and drinking well. REVIEW OF SYSTEMS: A complete 10 point review of systems was reviewed with the patient with pertinent positives and negatives as per history of present illness. All else were negative. PAST MEDICAL HISTORY: Atrial flutter, cardiomyopathy, history of PE and DVT on Xarelto, history of hypothyroidism, history of alcohol abuse SOCIAL HISTORY: Lives at home alone, uses chewing tobacco ALLERGIES: Reviewed in chart and with the patient PHYSICAL EXAM: CONSTITUTIONAL: Pleasant and cooperative. Nontoxic-appearing and in no acute distress. Well appearing and well nourished. HEENT: Normocephalic, atraumatic. NECK: Supple, full active range of motion without discomfort. RESPIRATORY: Clear to auscultation bilaterally with no wheezing, crackles, rhonchi or stridor. Equal expansion bilaterally. CARDIOVASCULAR: Regular rate and rhythm with no murmurs, rubs or gallops. Normal peripheral perfusion. No edema. GASTROINTESTINAL: Tender to palpation in the right lower quadrant with slight guarding. No rebound tenderness. Soft and nondistended. No palpable masses HSM. Bowel sounds present in all quadrants. No CVA tenderness bilaterally. MUSCULOSKELETAL: Full range of motion of all joints without discomfort. INTEGUMENTARY: No rash or other significant dermatologic conditions noted. NEUROLOGIC: Alert and oriented X 4 with normal affect. Normal speech. Normal gait observed. ED COURSE AND MEDICAL DECISION MAKING: CC: Patient presenting with complaint of abdominal pain DIFFERENTIAL DIAGNOSIS: Includes, but not limited to acute appendicitis, bowel perforation, intra-abdominal abscess, peritonitis, among others. INTERPRETATION OF LABS: Mild leukocytosis with left shift, no anemia, normal platelets, mild hyponatremia, no other significant electrolyte abnormalities, normal renal function, elevated T bili, otherwise normal liver enzymes and lipase. COVID-negative. MEDICATION RECONCILIATION: I attest that I have personally reviewed the patient's current medication list. INITIAL VITAL SIGNS REVIEW: I reviewed the patient's initial vital signs and interpret them as follows: T: Afebrile; BP: Normotensive; HR: Within normal limits; RR: Within normal limit; Pulse Ox: Within normal limits on room air. MDM SUMMARY: Patient was evaluated at bedside, history and physical exam performed. Patient is alert and oriented, in no acute distress, resting calmly in the s tretcher. He is afebrile and nontoxic-appearing and does not appear to be significantly dehydrated. Tenderness to palpation in the right lower quadrant with slight guarding, but no acute abdomen. Initial orders were placed by nursing staff under critical pathways due to high volume and long wait times. Additional orders were placed for blood cultures, lactate, IV morphine for pain, IV Zofran for nausea, IV ciprofloxacin and Flagyl for perforation prophylaxis. Patient discussed with Dr. Nair, general surgery, who agreed to evaluate the patient. Labs and imaging reviewed, labs notable for mild leukocytosis with left shift and elevated T bili but otherwise normal liver enzymes. CT of the abdomen/pelvis reviewed from earlier today, report noting severe acute appendicitis with findings suspicious for perforation, but no fluid collection to indicate abscess. There is also note of wedge-shaped subpleural consolidation of the right lung base which is consistent with the patient's recent diagnosis of PE/pulmonary infarct and is not suspected to be new. Patient reassessed multiple times throughout ED stay, he has remained hemodynamically stable and afebrile and his pain is improved after the morphine. The patient was updated on all results and plan for admission and will be most likely going to the OR later tonight, he was agreeable to this plan. Patient was stable at the time of admission. The chart was completed utilizing [employer] Speech voice recognition software. Grammatical errors, random word insertions, pronoun errors, and incomplete sentences are an occasional consequence of this system due to software limitations, ambient noise, and hardware issues. Any formal questions or concerns about the content, text, or information contained within the body of this dictation should be directly addressed to the nurse practitioner for clarification. Past Med/Surg History Medical History Alcohol abuse Atrial flutter with rapid ventricular response f/u dr main Bicuspid aortic valve f/u justin pimentel BPH (benign prostatic hyperplasia) Cardiomyopathy Dental abscess DVT (deep venous thrombosis) ~3 years ago; RT LLE-on Xarelto Dyslipidemia History of hypothyroidism Kidney stones hx-passed on their own Left wrist sprain hx, ~2020 Obesity Pulmonary embolism and infarction on Xarelto, f/u justin berry; will be seeing hemotology on 12/25/21 Right bundle branch block Surgical History History of esophagogastroduodenoscopy (EGD) Hx of arthroscopic knee surgery lt. Hx of arthroscopy of shoulder rt. Hx of colonoscopy S/P ablation of atrial flutter ~2-3 years ago, [facility] Family History Grandfather Myocardial infarction Brother Diabetes Diverticulitis Father Leukemia Kidney stone Mother Cardiac disorder Hypothyroidism Denies family history of Ovarian cancer Prostate cancer Breast cancer Colorectal cancer Social History Smoking Status: Never smoker Tobacco Type: Smokeless Tobacco (Dip or Chew) Second Hand Exposure: Yes (mother was a smoker); Hx Alcohol Use: Yes Alcohol type: beer Hx Substance Use: No Preferred Language: Syrian Communication Ability: Effective Visual Impairment: Limited Hearing Ability: Normal Tool Rental Technician Required: No Beliefs That Will Affect Care: None marital status: Goal Current Living Situation: Alone current occupational status: employed Feels Safe at Home: Yes Childhood Exposure to Second-Hand Smoke: Yes caffeine: No during the past year weight has: remained stable Dental Care, Regularly: Yes Seatbelt Use: always Sunscreen Use: Yes Assistive Devices: Glasses Allergies Allergies Allergy/AdvReac Type Severity Reaction Status Date / Time Penicillins Allergy Severe THROAT Verified 01/29/22 13:47 SWELLING latex Allergy Mild ITCHING Verified 01/29/22 13:47 Home Meds Home Medications Medication Instructions Recorded Confirmed cyanocobalamin (vitamin B-12) 1,000 mcg PO QAM 11/03/21 01/29/22 1,000 mcg tablet levothyroxine 50 mcg tablet 50 mcg PO QAM 12/14/21 01/29/22 multivitamin 1 tab PO QAM 12/14/21 01/29/22 rivaroxaban 20 mg tablet (Xarelto) 20 mg PO QAM 12/14/21 01/29/22 tamsulosin 0.4 mg capsule 0.4 mg PO QAM 12/14/21 01/29/22 Previous Rx's Medication Instructions Recorded tolterodine 2 mg tablet 2 mg PO BID 90 days #180 tabs 02/12/21 metoprolol succinate 25 mg 25 mg PO QAM #90 tabs 08/31/21 tablet,extended release 24 hr Results & Data (ED) Vital Signs Vital Signs - 24 hr 01/29/22 18:06 01/29/22 19:15 Temperature 36.9 C 37.2 C Temperature Source Oral Oral Pulse Rate 89 Pulse Rate [Apical] 85 Pulse Rhythm [Apical] Regular Pulse Strength [Apical] Normal Respiratory Rate 18 22 Respiratory Effort / Characteristics Accessory Muscle Use Non-Labored Spontaneous Respiratory Depth Normal Respiratory Pattern Regular Blood Pressure 122/81 Blood Pressure [Left Arm] 134/81 Blood Pressure Mean 94 Blood Pressure Mean [Left Arm] 98 Blood Pressure Position [Left Arm] Semi-fowlers Pulse Oximetry 96 95 Oxygen Delivery Method Room Air Room Air Sepsis Recent Fever Within 48 Hours No Sepsis New/Unexplained Change in Mental Status No Sepsis Action Taken by Nursing No Action Required Laboratory Data Result diagrams: 01/29/22 18:35 01/29/22 18:35 Lab Results 01/29/22 01/29/22 01/29/22 Range/Units 18:35 18:35 18:35 WBC 12.49 H (4.8-10.8) K/ul RBC 4.91 (4.63-6.08) M/uL Hgb 16.1 (14.0-18.0) g/dl Hct 46.9 (40.1-51.0) % MCV 95.5 (80.0-100.0) fL MCH 32.8 (25.0-34.0) pg MCHC 34.3 (32.0-36.0) g/dL RDW Std Deviation 45.2 (36.4-46.3) fL RDW Coeff of Cecilio 12.9 (11.5-14.5) % Plt Count 258 (130-400) K/uL MPV 8.8 L (9.4-12.4) fL Immature Gran % (Auto) 0.4 % Neut % (Auto) 80.1 % Lymph % (Auto) 9.5 % Brantley % (Auto) 9.8 % Eos % (Auto) 0.0 % Baso % (Auto) 0.2 % Neut # (Auto) 10.01 H (1.4-6.5) K/uL Lymph # (Auto) 1.19 L (1.2-3.4) K/uL Brantley # (Auto) 1.22 H (0.24-0.82) K/uL Eos # (Auto) 0.00 (0-0.50) K/uL Baso # (Auto) 0.02 (0-0.2) K/uL Immature Gran # (Auto) 0.05 H (0.00-0.02) K/uL Sodium 132 L (136-145) mmol/L Potassium 4.2 (3.5-5.1) mmol/L Chloride 100 (98-107) mmol/L Carbon Dioxide 22 (21-32) mmol/L Anion Gap 10 (3-11) BUN 18 (6-23) mg/dl Creatinine 1.18 (0.6-1.4) mg/dl Est Cr Clr Drug Dosing 95.3 ml/min Est GFR ( Amer) 79.5 ml/min Est GFR (Non-Af Amer) 68.6 ml/min BUN/Creatinine Ratio 15.3 (10-20) Glucose 95 (70-99(Fasting)) mg/dl Calcium 9.4 (8.5-10.1) mg/dl Total Bilirubin 2.0 H (0.2-1.0) mg/dl AST 19 (13-39) U/L ALT 18 (7-52) U/L Alkaline Phosphatase 53 (34-104) U/L Total Protein 8.1 (6.0-8.3) gm/dl Albumin 4.8 (3.4-5.0) gm/dl Globulin 3.3 (2.5-4.0) gm/dl Albumin/Globulin Ratio 1.5 (0.9-2) Lipase 24 (11-82) U/L SARS-CoV-2, RNA, NAAT NEGATIVE (NEGATIVE) Administered Medications Lactated Ringer's (Lr) 1,000 mls @ 75 mls/hr IV .[id number] VANNESA Stop: 02/28/22 22:18 Last Admin: 01/29/22 22:28 Dose: 75 mls/hr Documented By: RISA Discontinued Medications Bupivacaine HCl/Epinephrine Bitart (Bupivacaine/Epinephrine 0.5% Mpf 1:200,000 30 Ml Vial) Confirm Administered Dose 30 ml .ROUTE .STK-MED ONE Stop: 01/29/22 18:53 Last Admin: 01/29/22 21:17 Dose: 30 ml Documented By: JUSTEN Ciprofloxacin (Cipro / D5w) 400 mg in 200 mls @ 100 mls/hr IV NOW STA; Protocol Stop: 01/29/22 20:25 Last Infusion: 01/29/22 22:30 Dose: 0 mls/hr Documented By: Admin: 01/29/22 19:49 Dose: 100 mls/hr Documented By: JUDSON Metronidazole (Flagyl) 500 mg in 100 mls @ 100 mls/hr IV NOW STA Stop: 01/29/22 19:25 Last Infusion: 01/29/22 22:31 Dose: 0 mls/hr Documented By: Admin: 01/29/22 20:10 Dose: 100 mls/hr Documented By: JUDSON Metronidazole (Flagyl) 500 mg in 100 mls @ 100 mls/hr IV PREOP VANNESA Stop: 01/30/22 05:59 Last Admin: 01/29/22 22:30 Dose: Not Given Documented By: RISA Meperidine HCl (Meperidine Hcl 25 Mg/Ml Carp/Vial) 25 mg IV ONE ONE Stop: 01/29/22 21:34 Last Admin: 01/29/22 21:36 Dose: 25 mg Documented By: MG Meperidine HCl (Meperidine Hcl 25 Mg/Ml Carp/Vial) Confirm Administered Dose 25 mg .ROUTE .STK-MED ONE Stop: 01/29/22 21:36 Last Admin: 01/29/22 21:42 Dose: Not Given Documented By: MG Morphine Sulfate (Morphine Sulfate 4 Mg/Ml 1 Ml Carp\Vial) 4 mg IV NOW STA Stop: 01/29/22 18:38 Last Admin: 01/29/22 22:30 Dose: Not Given Documented By: BS Ondansetron HCl (Ondansetron Inj 2 Mg/Ml 2 Ml Vial) 4 mg IV NOW STA Stop: 01/29/22 18:38 Last Admin: 01/29/22 22:30 Dose: Not Given Documented By: BS Discharge Plan Visit Data Chief Complaint: Abdominal Pain Stated Complaint: ABDOMINAL PAIN ED Provider: Rodney Canales ED Midlevel Provider: Belinda Marshall Discharge Problem: Acute appendicitis Patient Disposition: Admitted As Inpatient Discharge Instructions Interventions: ED Discharge Assessment Last Done: 01/29/22 19:16 : Acute appendicitis Qualifiers: Acute appendicitis type: with localized peritonitis Appendicitis perforation presence: with perforation Appendicitis abscess presence: without abscess
[2022-01-29] MEDS ORDERED: metroNIDAZOLE 500 MG/100 ML BAG IV STA (18:26)
[2022-01-29] MEDS ORDERED: CIPROFLOXACIN / D5W 400 MG/200 ML BAG IV STA (18:26)
[2022-01-29] MEDS ORDERED: ONDANSETRON INJ 2 MG/ML 2 ML VIAL IV STA (18:37)
[2022-01-29] MEDS ORDERED: MoRPHine SULFATE 4 MG/ML 1 ML CARP\\VIAL IV STA (18:37)
[2022-01-29] MEDS ORDERED: ONDANSETRON INJ 2 MG/ML 2 ML VIAL IV PRN ×2 (18:46→22:19)
[2022-01-29] MEDS ORDERED: HYDROmorphone INJ 2 MG/ML SYR/VIAL IV PRN (18:46)
[2022-01-29] MEDS ORDERED: PHENYLEPHRINE 100MCG/ML 5ML SYR IV PRN (18:46)
[2022-01-29] MEDS ORDERED: fentaNYL citrate 100 MCG/2 ML VIAL IV PRN (18:46)
[2022-01-29] MEDS ORDERED: ATROPINE SULFATE 0.1 MG/ML 10ML SYR IV PRN (18:46)
[2022-01-29] MEDS ORDERED: ePHEDrine sulfate 50 MG/ML AMP IV PRN (18:46)
[2022-01-29] MEDS ORDERED: LABETALOL HCL IV 5 MG/ML 20ML IV PRN (18:46)
--- NOTE | 2022-01-29 18:49 | Anesthesiology Consultation ---
Date of Service January 29, 2022 Assessment & Plan (1) Encounter for pre-operative examination: Chart Review Chart Review: Acceptable Risk for Surgery (emergency surgery) and Patient NOT seen in Pre Admission Testing Consults Requested none History Surgery Operation Date: 01/29/22 18:45 Proposed Procedures p Laparoscopic Appendectomy - Anjel Nair, Height/Weight Height: 6 ft 2 in Weight: 117.6 kg Allergies Allergy/AdvReac Type Severity Reaction Status Date / Time Penicillins Allergy Severe THROAT Verified 01/29/22 13:47 SWELLING latex Allergy Mild ITCHING Verified 01/29/22 13:47 Medications Home Medications Medication Instructions Recorded Confirmed Last Taken tolterodine 2 mg tablet 2 mg PO BID 90 days #180 tabs 02/12/21 01/29/22 12/17/21 metoprolol succinate 25 mg 25 mg PO QAM #90 tabs 08/31/21 01/29/22 12/17/21 tablet,extended release 24 hr cyanocobalamin (vitamin B-12) 1,000 mcg PO QAM 11/03/21 01/29/22 12/17/21 1,000 mcg tablet levothyroxine 50 mcg tablet 50 mcg PO QAM 12/14/21 01/29/22 12/17/21 multivitamin 1 tab PO QAM 12/14/21 01/29/22 12/17/21 rivaroxaban 20 mg tablet (Xarelto) 20 mg PO QAM 12/14/21 01/29/22 12/16/21 tamsulosin 0.4 mg capsule 0.4 mg PO QAM 12/14/21 01/29/22 12/17/21 Past Medical History Medical History (Updated 01/29/22 @ 18:51 by Michele Wiggins MD) Alcohol abuse Atrial flutter with rapid ventricular response f/u dr main Bicuspid aortic valve f/u justin pimentel BPH (benign prostatic hyperplasia) Cardiomyopathy Dental abscess DVT (deep venous thrombosis) ~3 years ago; RT LLE-on Xarelto Dyslipidemia History of hypothyroidism Kidney stones hx-passed on their own Left wrist sprain hx, ~2020 Obesity Pulmonary embolism and infarction on Xarelto, f/u justin berry; will be seeing hemotology on 12/25/21 Right bundle branch block Past Family History Family History Grandfather Myocardial infarction Brother Diabetes Diverticulitis Father Leukemia Kidney stone Mother Cardiac disorder Hypothyroidism Denies family history of Ovarian cancer Prostate cancer Breast cancer Colorectal cancer Past Surgical History Surgical History History of esophagogastroduodenoscopy (EGD) Hx of arthroscopic knee surgery lt. Hx of arthroscopy of shoulder rt. Hx of colonoscopy S/P ablation of atrial flutter ~2-3 years ago, [facility] Social History Smoking Status: Never smoker tobacco type: smokeless tobacco Hx Alcohol Use: Yes Alcohol type: beer alcohol intake frequency: holidays/special occasions only Hx Substance Use: No substance use type: does not use Physical Exam Vital Signs Last Vital Signs Temp 36.9 C 01/29/22 18:06 Pulse 89 01/29/22 18:06 Resp 18 01/29/22 18:06 BP 122/81 01/29/22 18:06 Pulse Ox 96 01/29/22 18:06 O2 Del Method 01/29/22 18:06 Testing Electrocardiogram Date: 11/12/21 DICTATED BY:Martín Demarco MD Test Reason : Blood Pressure : / mmHG Vent. Rate : 055 BPM Atrial Rate : 055 BPM P-R Int : 166 ms QRS Dur : 140 ms QT Int : 466 ms P-R-T Axes : 072 -38 -07 degrees QTc Int : 445 ms Sinus bradycardia Left axis deviation Right bundle branch block Abnormal ECG When compared with ECG of 25-JUL-2019 16:04, Premature atrial complexes are no longer Present Right bundle branch block is now Present Confirmed by Martín Demarco ([id number]) on 11/12/2021 5:53:14 PM Referred By: REFERRED SELF Confirmed By:Sebastian Demarco Echocardiogram Date: 10/15/21 EF: 60-65 LV Function: normal Other Findings: + RVH (mildly dilated) and + LVH (mild) bicuspid aortic valve Other Testing CT SCAN OF THE ABDOMEN AND PELVIS WITH IV CONTRAST CLINICAL HISTORY: Right lower quadrant abdominal pain. COMPARISON STUDY: Abdominal CT dated 08/08/2014. TECHNIQUE: Following the IV administration of 83 cc of Optiray 350, CT scan of the abdomen and pelvis is performed from the lung bases to the proximal femora. Images are reviewed in the axial, sagittal, and coronal planes. IV contrast was administered without complication. Oral contrast was utilized. A dose lowering technique was utilized adhering to the principles of ALARA. CT DOSE: 1093.88 mGy.cm FINDINGS: Lung bases: The heart is normal in size and without pericardial effusion. There is an indeterminant wedge shaped focus of subpleural consolidation at the right lung base seen on image #56. This measures approximately 3 cm. Atelectasis is noted at the left lung base. No pleural effusion is identified. There is a small hiatal hernia. Liver: The contrast-enhanced liver is normal in size, contour, and attenuation. There is no intrahepatic biliary ductal dilatation. The hepatic veins and portal veins are patent. Scattered subcentimeter hepatic hypodensities likely represent cysts but are too small for definitive characterization. Gallbladder: Unremarkable. Spleen: Normal in size and attenuation. Pancreas: Unremarkable. Adrenal glands: Unremarkable. Kidneys: The contrast enhanced kidneys are normal in size and without hydronephrosis. The kidneys enhance symmetrically. Cortical scarring is seen in the left upper pole. A 3 mm nonobstructing calculus is seen on the right. Abdominal vasculature: There is ectasia of the distal abdominal aorta which measures up to 2.8 cm in diameter. There is moderate atherosclerotic calcification. Bowel: There is no bowel obstruction. Enteric contrast reaches the left colon. The appendix is thick-walled, dilated, and fluid-filled measuring up to 2.0 cm in diameter. A calcified appendicolith is seen on image #271. There is strandy inflammation and fluid and the appearance is consistent with acute appendicitis. There is mucosal discontinuity suggested at the base of the appendix on axial image #267. Perforation is not excluded. No breast fluid collection is seen to indicate abscess. Peritoneum: No intraperitoneal free air is seen. Trace fluid is seen in the right paracolic gutter. Lymphadenopathy: None. Pelvic viscera: The bladder is decompressed and appears thick-walled. The prostate and seminal vesicles are normal as visualized. Skeletal structures: No lytic or blastic lesions are seen. IMPRESSION: 1. Severe acute appendicitis. 2. Findings are suspicious for perforation. No fluid collection is seen to indicate abscess. 3. The bladder wall appears circumferentially thickened. Correlate with urinalysis. 4. Right-sided nephrolithiasis. 5. There is a 3 cm focus of wedge-shaped subpleural consolidation at the right lung base. This is pathologically indeterminant, and a small pulmonary infarct is not excluded. If there is clinical concern for pulmonary embolus a CT angiogram of the chest should be obtained. 6. Additional findings as above. ACT 112: Negative or not required by law. Electronically signed by: Abdulaziz Laura M.D. 01/29/2022 5:18 PM Dictated:01/29/22 170 Transcribed: 01/29/22 170
[2022-01-29] MEDS ORDERED: BUPIVACAINE/EPINEPHRINE 0.5% MPF 1:200,000 30 ML VIAL ONE (18:52)
[2022-01-29 19:02] LABS: Basophils # (auto) 0.02 K/uL (0-0.2); Basophils % (auto) 0.2 %; Hematocrit (blood only) 46.9 % (40.1-51.0); Hemoglobin 16.1 g/dl (14.0-18.0); Immature Granulocytes # (auto) 0.05 K/uL (0.00-0.02); Immature Granulocytes % (auto) 0.4 %; Lymphocytes # (auto) 1.19 K/uL (1.2-3.4); Lymphocytes % (auto) 9.5 %; Mean Corpuscular Hemoglobin 32.8 pg (25.0-34.0); Mean Corpuscular Hgb Conc 34.3 g/dL (32.0-36.0); Mean Corpuscular Volume 95.5 fL (80.0-100.0); Mean Platelet Volume 8.8 fL (9.4-12.4); Monocytes # (auto) 1.22 K/uL (0.24-0.82); Monocytes % (auto) 9.8 %; Neutrophils # (auto) 10.01 K/uL (1.4-6.5); Neutrophils % (auto) 80.1 %; Platelet Count 258 K/uL (130-400); RDW Coefficient of Variation 12.9 % (11.5-14.5); RDW Standard Deviation 45.2 fL (36.4-46.3); Red Blood Count 4.91 M/uL (4.63-6.08); White Blood Count 12.49 K/ul (4.8-10.8)
[2022-01-29] MEDS ORDERED: ONDANSETRON INJ 2 MG/ML 2 ML VIAL ONE ×2 (19:05→19:47)
[2022-01-29] MEDS ORDERED: SUCCINYLCHOLINE CHLORIDE 20 MG/ML 10 ML VIAL IV ONE (19:05)
[2022-01-29] MEDS ORDERED: DEXAMETHASONE SOD INJ 4 MG/ML VIAL ONE (19:05)
[2022-01-29] MEDS ORDERED: LIDOCAINE 2% MPF LOCAL 5 ML VIAL INFIL ONE (19:05)
[2022-01-29] MEDS ORDERED: PROPOFOL IV EMULSION 10 MG/ML 20 ML VIAL IV ONE (19:05)
[2022-01-29] MEDS ORDERED: fentaNYL citrate 100 MCG/2 ML VIAL ONE ×2 (19:05→20:46)
[2022-01-29] MEDS ORDERED: MIDAZOLAM HCL 1 MG/ML 2ML VIAL ONE (19:05)
--- NOTE | 2022-01-29 19:18 | History & Physical Report ---
Date of Service January 29, 2022 Assessment & Plan (1) Acute appendicitis: Plan: possible perforation so I believe despite his multiple comorbidities that surgical resection urgently is indicated. discussed risks ( bleeding/infection/injury to another organ/dvt/pe/mi/cva. we discussed possible need for open surgery. questions answered. will proceed primo with lap appy possible open surgery as needed. pt agreeable. (2) Obesity: (3) Alcohol abuse: (4) Cardiomyopathy: (5) Bicuspid aortic valve: (6) Pulmonary embolism and infarction: History of Present Illness Primary Care Provider: Suha Mcneal MD 56 y/o with abdominal pain starting yesterday. out patient ct shows acute possibly perforated appendicitis. Allergies Allergy/AdvReac Type Severity Reaction Status Date / Time Penicillins Allergy Severe THROAT Verified 01/29/22 13:47 SWELLING latex Allergy Mild ITCHING Verified 01/29/22 13:47 Home Medications Medication Instructions Recorded Confirmed Type tolterodine 2 mg tablet 2 mg PO BID 90 days #180 tabs 02/12/21 01/29/22 Rx metoprolol succinate 25 mg 25 mg PO QAM #90 tabs 08/31/21 01/29/22 Rx tablet,extended release 24 hr cyanocobalamin (vitamin B-12) 1,000 mcg PO QAM 11/03/21 01/29/22 History 1,000 mcg tablet levothyroxine 50 mcg tablet 50 mcg PO QAM 12/14/21 01/29/22 History multivitamin 1 tab PO QAM 12/14/21 01/29/22 History rivaroxaban 20 mg tablet (Xarelto) 20 mg PO QAM 12/14/21 01/29/22 History tamsulosin 0.4 mg capsule 0.4 mg PO QAM 12/14/21 01/29/22 History Past Med/Surg History Medical History (Updated 01/29/22 @ 19:17 by Anjel Nair, ) Alcohol abuse Atrial flutter with rapid ventricular response f/u dr main Bicuspid aortic valve f/u justin pimentel BPH (benign prostatic hyperplasia) Cardiomyopathy Dental abscess DVT (deep venous thrombosis) ~3 years ago; RT LLE-on Xarelto Dyslipidemia History of hypothyroidism Kidney stones hx-passed on their own Left wrist sprain hx, ~2020 Obesity Pulmonary embolism and infarction on Xarelto, f/u dr. main, [place]; will be seeing hemotology on 12/25/21 Right bundle branch block Surgical History History of esophagogastroduodenoscopy (EGD) Hx of arthroscopic knee surgery lt. Hx of arthroscopy of shoulder rt. Hx of colonoscopy S/P ablation of atrial flutter ~2-3 years ago, [facility] Family History Grandfather Myocardial infarction Brother Diabetes Diverticulitis Father Leukemia Kidney stone Mother Cardiac disorder Hypothyroidism Denies family history of Ovarian cancer Prostate cancer Breast cancer Colorectal cancer Social History Smoking Status: Never smoker Tobacco Type: Smokeless Tobacco (Dip or Chew) Second Hand Exposure: Yes (mother was a smoker); Hx Alcohol Use: Yes Alcohol type: beer Hx Substance Use: No Preferred Language: Scottish Communication Ability: Effective Visual Impairment: Limited Hearing Ability: Normal Stone Carver Required: No Beliefs That Will Affect Care: None marital status: Goal Current Living Situation: Alone current occupational status: employed Feels Safe at Home: Yes Childhood Exposure to Second-Hand Smoke: Yes caffeine: No during the past year weight has: remained stable Dental Care, Regularly: Yes Seatbelt Use: always Sunscreen Use: Yes Assistive Devices: Glasses Review of Systems All systems reviewed & are unremarkable except as noted in HPI & below Physical Exam Constitutional: WD/WN, vitals as above no acute distress and not ill appearing Eyes: PERRL, conjunctivae normal, anicteric sclerae EOM intact bilaterally ENMT: external ear and nose normal, oropharynx normal Ears: no hearing impairment Neck: trachea midline, no thyromegaly Respiratory: normal respiratory effort; no respiratory distress and does not use accessory muscles Cardiovascular: Rate/Rhythm: regular rate and regular rhythm Gastrointestinal (Abdomen): soft. +RLQ ttp. +guarding. +rovsing's Skin: no rashes, warm and dry Psychiatric: Orientation: alert, oriented x 3 and cooperative Results & Data ([facility]) Vital Signs (Past 12 Hours) Vital Signs Temp Pulse Resp BP Pulse Ox O2 Del Method 01/29/22 18:06 36.9 C 89 18 122/81 96 Room Air
[2022-01-29 19:30] LABS: Albumin Globulin Ratio 1.5 (0.9-2); Albumin Level 4.8 gm/dl (3.4-5.0); BUN Creatinine Ratio 15.3 (10-20); Calcium 9.4 mg/dl (8.5-10.1); Creatinine Clr Calc Pharmacy 95.3 ml/min; Est GFR (African American) 79.5 ml/min; Est GFR (Non-African American) 68.6 ml/min; Globulin 3.3 gm/dl (2.5-4.0); Potassium 4.2 mmol/L (3.5-5.1); Total Protein 8.1 gm/dl (6.0-8.3)
[2022-01-29] MEDS ORDERED: PHENYLEPHRINE 100MCG/ML 5ML SYR ONE (20:54)
[2022-01-29] MEDS ORDERED: ROCURONIUM BROMIDE 10 MG/ML 5 ML VIAL IV ONE ×5 (20:55→20:56)
[2022-01-29] MEDS ORDERED: SUGAMMADEX SODIUM 200 MG/2 ML VIAL IV ONE (21:01)
[2022-01-29] MEDS ORDERED: MEPERIDINE HCL 25 MG/ML CARP/VIAL IV ONE (21:33)
[2022-01-29] MEDS ORDERED: MEPERIDINE HCL 25 MG/ML CARP/VIAL ONE (21:35)
--- NOTE | 2022-01-29 21:35 | Operative Report ---
PG Post Operative Report Pre & Post Diagnosis Operation Date: 01/29/22 18:45 Pre-Op Diagnosis: Appendicitis Post-Op Diagnosis: Appendicitis I identified the patient and participated in the time-out.: Yes Procedure Operation Date: 01/29/22 18:45 Actual Procedures p Laparoscopic Appendectomy(Not Applicable) - Anjel aNir DO Surgeon Anjel Nair DO Machine Ii Coremaker n/a Estimated Blood Loss 10 Findings Consistent with Post-Op Diagnosis Specimens appendix Description of Procedure After informed consent was obtained the patient was taken to the operating room and placed in supine position. After successful intubation a Henry catheter was placed sterilely. The left arm was tucked. The abdomen was shaved and sterilely prepped and draped. A supraumbilical incision was made with 11 blade scalpel and carried down through the soft tissues and cautery. Anterior fascia was opened using cautery and two #0 Vicryl stay sutures were placed. Peritoneum was elevated using hemostats and incised under direct vision using a Metzenbaum scissor. Finger sweep was performed. A 12 mm Dickens trocar was placed and the abdomen was insufflated to 20 mmHg. Laparoscope was inserted and the abdomen examined 360 degrees. A suprapubic 5 mm port in the left lower quadrant 12 mm port were placed under direct vision. Patient was placed in a Trendelenburg position and slightly airplane to the left. I began by examining the right lower quadrant. The appendix was acutely inflamed. There was a perforation just distal to its junction with the cecum. There was a small amount of contamination already present. I was able to use blunt dissection to free the appendix from the right lower quadrant sidewall. A 10 mm right angle was used to make a small window through the mesoappendix right at its junction with the cecum. A BIANCA purple cartridge linear stapler was used to transect the appendix at its junction with the cecum. A second firing of a purple 60 mm cartridge was used to take down the remainder of the mesoappendix. It was placed into an Endo Catch bag. I ran the small bowel backward for several feet and there were no other abnormalities. I thoroughly irrigated the right lower quadrant as well as the pelvis with copious amounts of irrigant. A 10 flat William-Phillips drain was placed in the right paracolic gutter and brought out through one of the port sites. It was secured to the skin using 0 Vicryl. Irrigation of the right upper quadrant was also performed. A look around the abdomen showed no other ab normalities. The trochars were all removed and the abdomen was desufflated. The fascia of the camera port was closed using 0 Vicryl in [id number] fashion. The wounds were all irrigated. The incisions were closed with 4-0 Monocryl. Marcaine with epinephrine was injected around it for postoperative analgesia and skin glue used as a dressing. Patient was awakened extubated and transferred recovery in stable condition. I attest to the content of the Intraoperative Record and any orders documented therein. Any exceptions are noted below.
--- NOTE | 2022-01-29 21:49 | Anesthesiology Progress Note ---
Date of Service January 29, 2022 Anesthesia Post Procedure Vital Signs Vital Signs: Temp Pulse Pulse Resp BP BP Pulse Ox 01/29/22 19:15 37.2 C 85 22 134/81 95 01/29/22 18:06 36.9 C 89 18 122/81 96 O2 Del Method 01/29/22 19:15 Room Air 01/29/22 18:06 Room Air Transfer of Care Handoff Completed per policy Notes Mental Status: alert / awake / arousable Patient Amnestic to Procedure: Yes Nausea / Vomiting: adequately controlled Pain: adequately controlled Airway Patency, RR, SpO2: stable & adequate BP & HR: stable & adequate Hydration State: stable & adequate Anesthetic Complications: no major complications apparent and Pt Satisfied with anesthetic care Notes: The patient is awake and comfortable. His vital signs are stable.
[2022-01-29] MEDS ORDERED: MoRPHine SULFATE 4 MG/ML 1 ML CARP\\VIAL IV PRN (22:19)
[2022-01-29] MEDS ORDERED: ACETAMINOPHEN 1,000 MG/100 ML VIAL IV PRN (22:19)
[2022-01-29] MEDS: LACTATED RINGER'S 1,000 ML IV SCH (22:28)
[2022-01-29] MEDS ORDERED: LORazepam 1 MG TAB PO PRN (22:36)
--- NOTE | 2022-01-29 22:40 | Consultation ---
Date of Consultation January 29, 2022 Assessment & Plan (1) Acute appendicitis: 56yo male presenting with acute appendicitis s/p laparoscopic appendectomy performed today. Surgery well tolerated, no complications identified. -Pain control, anti-emetics and bowel regimen per primary team. -Advance diet as tolerated -LR at 75mL/hr -Ciprofloxacin 400mg IV q 12 hours -Flagyl 500mg IV q 8 hours (2) Alcohol abuse: Patient reports drinking 4 24oz beers occasionally, typically on weekends for football games. No history of EtOH withdrawal. Presently no clinical withdrawal -AWSS at risk protocol -Monitor for evidence of withdrawal (3) Benign prostatic hyperplasia with urinary obstruction: Chronic. -Monitor UOP -Resume tamsulosin 0.4mg po daily -Continue Tolterodine (4) Hypothyroidism: Chronic -Resume Synthroid 50mcg po daily (5) S/P ablation of atrial fibrillation: Presently in sinus rhythm -Continue metoprolol -Xarelto to be resumed by primary team History of Present Illness Reason for Consultation: medical management Attending Physician: Anjel Nair, History of Present Illness Saul Rodgers is a 56yo male with history of atrial flutter s/p ablation, HLP, DVT/PE on Xarelto anticoagulation and BPH presenting with acute appendicitis. Patient developed RLQ abdominal pain yesterday. He was seen by his PCP and had an outpatient CT of the abdomen performed which revealed severe, acute appendicitis with findings concerning for perforation. Patient came to [facility] ER and was taken to the OR for laparoscopic appendectomy. The surgery went well with no immediate complications identified. Patient was seen in Rm 112 recovery. He reports that his pain is presently well controlled. Denies nausea. He has not yet passed flatus or had a BM. Patient drinks EtOH fairly regularly - reports having approximately 4 24oz beers when he drinks. He drinks mostly on weekends during the football games. Last drink was 6 days ago. He has no history of withdrawal symptoms. No additional complaints at this time. Allergies Allergy/AdvReac Type Severity Reaction Status Date / Time Penicillins Allergy Severe THROAT Verified 01/29/22 13:47 SWELLING latex Allergy Mild ITCHING Verified 01/29/22 13:47 Home Medications Medication Instructions Recorded Confirmed Type tolterodine 2 mg tablet 2 mg PO BID 90 days #180 tabs 02/12/21 01/29/22 Rx metoprolol succinate 25 mg 25 mg PO QAM #90 tabs 08/31/21 01/29/22 Rx tablet,extended release 24 hr cyanocobalamin (vitamin B-12) 1,000 mcg PO QAM 11/03/21 01/29/22 History 1,000 mcg tablet levothyroxine 50 mcg tablet 50 mcg PO QAM 12/14/21 01/29/22 History multivitamin 1 tab PO QAM 12/14/21 01/29/22 History rivaroxaban 20 mg tablet (Xarelto) 20 mg PO QAM 12/14/21 01/29/22 History tamsulosin 0.4 mg capsule 0.4 mg PO QAM 12/14/21 01/29/22 History Patient History Medical History Alcohol abuse Atrial flutter with rapid ventricular response f/u dr main Bicuspid aortic valve f/u justin pimentel BPH (benign prostatic hyperplasia) Cardiomyopathy Dental abscess DVT (deep venous thrombosis) ~3 years ago; RT LLE-on Xarelto Dyslipidemia History of hypothyroidism Kidney stones hx-passed on their own Left wrist sprain hx, ~2020 Obesity Pulmonary embolism and infarction on Xarelto, f/u dr. main, justin; will be seeing hemotology on 12/25/21 Right bundle branch block Surgical History History of esophagogastroduodenoscopy (EGD) Hx of arthroscopic knee surgery lt. Hx of arthroscopy of shoulder rt. Hx of colonoscopy S/P ablation of atrial flutter ~2-3 years ago, [facility] Family History Grandfather Myocardial infarction Brother Diabetes Diverticulitis Father Leukemia Kidney stone Mother Cardiac disorder Hypothyroidism Denies family history of Ovarian cancer Prostate cancer Breast cancer Colorectal cancer Social History Smoking Status: Never smoker Tobacco Type: Smokeless Tobacco (Dip or Chew) Second Hand Exposure: Yes (mother was a smoker); Hx Alcohol Use: Yes Alcohol type: beer Hx Substance Use: No Preferred Language: Polish Communication Ability: Effective Visual Impairment: Limited Hearing Ability: Normal Expert Witness Required: No Beliefs That Will Affect Care: None marital status: Goal Current Living Situation: Alone current occupational status: employed Feels Safe at Home: Yes Childhood Exposure to Second-Hand Smoke: Yes caffeine: No during the past year weight has: remained stable Dental Care, Regularly: Yes Seatbelt Use: always Sunscreen Use: Yes Assistive Devices: Glasses Review of Systems Review of Systems: All systems reviewed & are unremarkable except as noted in HPI & below Physical Exam Physical Exam: General: patient resting comfortably, NAD, non-toxic in appearance, AA&O x 4 Skin: warm, dry, no rashes HEENT: NC/AT, PERRL, EOMI, anicteric sclera, conjunctiva without injection, external ear normal to inspection and nontender, nares patent, moist mucus membranes, dentition intact, no oropharyngeal lesions, neck supple, trachea midline, no LAD, no thyromegaly, no JVD Heart: +S1/S2, regular, no m/r/g Lungs: equal air entry bilaterally, no rales/rhonchi/wheezes Abd: diminished bowel sounds, abdomen soft, NT/ND, dressing in place in RLQ clean/dry/intact, JOYCE drain in place with serosanguinous drainage - emptied x 1 by nursing thus far Ext: warm, 2+ pulses in UE/LE bilaterally, no clubbing/cyanosis or edema, SCDs in place Neuro: nonfocal, patient AA&O x 4, speech intact, no facial droop, moving all extremities on command with equal strength 5/5 Results & Data ([facility]) Vital Signs (Past 12 Hours) Vital Signs Temp Pulse Pulse Resp BP BP Pulse Ox 01/29/22 21:55 36.7 C 86 14 126/74 93 01/29/22 21:45 88 22 125/78 96 01/29/22 21:35 94 H 22 146/86 H 99 01/29/22 21:27 36.3 C L 102 H 22 135/88 100 01/29/22 19:15 37.2 C 85 22 134/81 95 01/29/22 18:06 36.9 C 89 18 122/81 96 O2 Del Method O2 Flow Rate 01/29/22 21:55 Room Air 01/29/22 21:45 Room Air 01/29/22 21:35 Oxymask 6 01/29/22 21:27 Oxymask 6 01/29/22 19:15 Room Air 01/29/22 18:06 Room Air Laboratory Results Laboratory Results WBC 12.49 K/ul (4.8-10.8) H 01/29/22 18:35 RBC 4.91 M/uL (4.63-6.08) 01/29/22 18:35 Hgb 16.1 g/dl (14.0-18.0) 01/29/22 18:35 Hct 46.9 % (40.1-51.0) 01/29/22 18:35 MCV 95.5 fL (80.0-100.0) 01/29/22 18:35 MCH 32.8 pg (25.0-34.0) 01/29/22 18:35 MCHC 34.3 g/dL (32.0-36.0) 01/29/22 18:35 RDW Std Deviation 45.2 fL (36.4-46.3) 01/29/22 18:35 RDW Coeff of Cecilio 12.9 % (11.5-14.5) 01/29/22 18:35 Plt Count 258 K/uL (130-400) 01/29/22 18:35 MPV 8.8 fL (9.4-12.4) L 01/29/22 18:35 Immature Gran % (Auto) 0.4 % 01/29/22 18:35 Neut % (Auto) 80.1 % 01/29/22 18:35 Lymph % (Auto) 9.5 % 01/29/22 18:35 Hale % (Auto) 9.8 % 01/29/22 18:35 Eos % (Auto) 0.0 % 01/29/22 18:35 Baso % (Auto) 0.2 % 01/29/22 18:35 Neut # (Auto) 10.01 K/uL (1.4-6.5) H 01/29/22 18:35 Lymph # (Auto) 1.19 K/uL (1.2-3.4) L 01/29/22 18:35 Hale # (Auto) 1.22 K/uL (0.24-0.82) H 01/29/22 18:35 Eos # (Auto) 0.00 K/uL (0-0.50) 01/29/22 18:35 Baso # (Auto) 0.02 K/uL (0-0.2) 01/29/22 18:35 Immature Gran # (Auto) 0.05 K/uL (0.00-0.02) H 01/29/22 18:35 Sodium 132 mmol/L (136-145) L 01/29/22 18:35 Potassium 4.2 mmol/L (3.5-5.1) 01/29/22 18:35 Chloride 100 mmol/L (98-107) 01/29/22 18:35 Carbon Dioxide 22 mmol/L (21-32) 01/29/22 18:35 Anion Gap 10 (3-11) 01/29/22 18:35 BUN 18 mg/dl (6-23) 01/29/22 18:35 Creatinine 1.18 mg/dl (0.6-1.4) 01/29/22 18:35 Est Cr Clr Drug Dosing 95.3 ml/min 01/29/22 18:35 Est GFR ( Amer) 79.5 ml/min 01/29/22 18:35 Est GFR (Non-Af Amer) 68.6 ml/min 01/29/22 18:35 BUN/Creatinine Ratio 15.3 (10-20) 01/29/22 18:35 Glucose 95 mg/dl (70-99(Fasting)) 01/29/22 18:35 Calcium 9.4 mg/dl (8.5-10.1) 01/29/22 18:35 Total Bilirubin 2.0 mg/dl (0.2-1.0) H 01/29/22 18:35 AST 19 U/L (13-39) 01/29/22 18:35 ALT 18 U/L (7-52) 01/29/22 18:35 Alkaline Phosphatase 53 U/L (34-104) 01/29/22 18:35 Total Protein 8.1 gm/dl (6.0-8.3) 01/29/22 18:35 Albumin 4.8 gm/dl (3.4-5.0) 01/29/22 18:35 Globulin 3.3 gm/dl (2.5-4.0) 01/29/22 18:35 Albumin/Globulin Ratio 1.5 (0.9-2) 01/29/22 18:35 Lipase 24 U/L (11-82) 01/29/22 18:35 SARS-CoV-2, RNA, NAAT NEGATIVE (NEGATIVE) 01/29/22 18:[address] SCAN OF THE ABDOMEN AND PELVIS WITH IV CONTRAST CLINICAL HISTORY: Right lower quadrant abdominal pain. COMPARISON STUDY: Abdominal CT dated 08/08/2014. TECHNIQUE: Following the IV administration of 83 cc of Optiray 350, CT scan of the abdomen and pelvis is performed from the lung bases to the proximal femora. Images are reviewed in the axial, sagittal, and coronal planes. IV contrast was administered without complication. Oral contrast was utilized. A dose lowering technique was utilized adhering to the principles of ALARA. CT DOSE: 1093.88 mGy.cm FINDINGS: Lung bases: The heart is normal in size and without pericardial effusion. There is an indeterminant wedge shaped focus of subpleural consolidation at the right lung base seen on image #56. This measures approximately 3 cm. Atelectasis is noted at the left lung base. No pleural effusion is identified. There is a small hiatal hernia. Liver: The contrast-enhanced liver is normal in size, contour, and attenuation. There is no intrahepatic biliary ductal dilatation. The hepatic veins and portal veins are patent. Scattered subcentimeter hepatic hypodensities likely represent cysts but are too small for definitive characterization. Gallbladder: Unremarkable. Spleen: Normal in size and attenuation. Pancreas: Unremarkable. Adrenal glands: Unremarkable. Kidneys: The contrast enhanced kidneys are normal in size and without hydronephrosis. The kidneys enhance symmetrically. Cortical scarring is seen in the left upper pole. A 3 mm nonobstructing calculus is seen on the right. Abdominal vasculature: There is ectasia of the distal abdominal aorta which measures up to 2.8 cm in diameter. There is moderate atherosclerotic calcification. Bowel: There is no bowel obstruction. Enteric contrast reaches the left colon. The appendix is thick-walled, dilated, and fluid-filled measuring up to 2.0 cm in diameter. A calcified appendicolith is seen on image #271. There is strandy inflammation and fluid and the appearance is consistent with acute appendicitis. There is mucosal discontinuity suggested at the base of the appendix on axial image #267. Perforation is not excluded. No breast fluid collection is seen to indicate abscess. Peritoneum: No intraperitoneal free air is seen. Trace fluid is seen in the right paracolic gutter. Lymphadenopathy: None. Pelvic viscera: The bladder is decompressed and appears thick-walled. The prostate and seminal vesicles are normal as visualized. Skeletal structures: No lytic or blastic lesions are seen. IMPRESSION: 1. Severe acute appendicitis. 2. Findings are suspicious for perforation. No fluid collection is seen to indicate abscess. 3. The bladder wall appears circumferentially thickened. Correlate with urinalysis. 4. Right-sided nephrolithiasis. 5. There is a 3 cm focus of wedge-shaped subpleural consolidation at the right lung base. This is pathologically indeterminant, and a small pulmonary infarct is not excluded. If there is clinical concern for pulmonary embolus a CT angiogram of the chest should be obtained. 6. Additional findings as above. ACT 112: Negative or not required by law. Electronically signed by: Abdulaziz Laura M.D. 01/29/2022 5:18 PM Dictated:01/29/221705 Transcribed: 01/29/221705 PG Care Time/CCT Total # of Minutes Spent Total Time Spent with Patient: Total time spent is greater than 50% in coordination of care (as documented) at patient's floor/unit and/or counseling patient: Coding Level of Care Code 10916 Inpt Consult Level 3 Diagnoses Acute appendicitis K35.80 Alcohol abuse F10.10 Benign prostatic hyperplasia with urinary obstruction N40.1; N13.8 Hypothyroidism E03.9 S/P ablation of atrial fibrillation Z98.890; Z86.79
[2022-01-30 01:30] LABS: Appearance Urine Clear (Clear); Bacteria Urine Automated Negative (Negative); Bilirubin Urine Negative (Negative); Blood Urine Negative (Negative); Color Urine Yellow; Epithelial Cell Urine Auto 20-30 /lpf (0-5); Glucose Urine UA Negative (Negative); Ketones Urine 1+ (Negative); Leukocyte Esterase Urine Negative (Negative); Nitrite Urine Negative (Negative); Protein Urine Trace (Negative); RBC Urine Automated 0-4 /hpf (0-4); Specific Gravity Urine 1.024 (1.000-1.030); Urobilinogen Urine Negative (Negative)
[2022-01-30] MEDS: metroNIDAZOLE 500 MG/100 ML BAG IV SCH ×3 (03:00→19:04)
[2022-01-30] MEDS: LEVOTHYROXINE SODIUM 50 MCG TABLET PO SCH (05:39)
[2022-01-30 05:51] LABS: Hematocrit (blood only) 43.3 % (40.1-51.0); Hemoglobin 14.9 g/dl (14.0-18.0); Mean Corpuscular Hemoglobin 33.3 pg (25.0-34.0); Mean Corpuscular Hgb Conc 34.4 g/dL (32.0-36.0); Mean Corpuscular Volume 96.9 fL (80.0-100.0); Mean Platelet Volume 8.8 fL (9.4-12.4); Platelet Count 215 K/uL (130-400); RDW Coefficient of Variation 12.6 % (11.5-14.5); RDW Standard Deviation 45.1 fL (36.4-46.3); Red Blood Count 4.47 M/uL (4.63-6.08); White Blood Count 12.81 K/ul (4.8-10.8)
[2022-01-30 06:12] LABS: BUN Creatinine Ratio 14.2 (10-20); Calcium 8.7 mg/dl (8.5-10.1); Creatinine Clr Calc Pharmacy 99.5 ml/min; Est GFR (African American) 83.8 ml/min; Est GFR (Non-African American) 72.3 ml/min; Magnesium 1.9 mg/dl (1.7-2.4); Potassium 4.5 mmol/L (3.5-5.1)
[2022-01-30 06:20] LABS: Basophils # (auto) 0.01 K/uL (0-0.2); Basophils % (auto) 0.1 %; Immature Granulocytes # (auto) 0.04 K/uL (0.00-0.02); Immature Granulocytes % (auto) 0.3 %; Lymphocytes # (auto) 0.28 K/uL (1.2-3.4); Lymphocytes % (auto) 2.2 %; Monocytes # (auto) 0.61 K/uL (0.24-0.82); Monocytes % (auto) 4.8 %; Neutrophils # (auto) 11.87 K/uL (1.4-6.5); Neutrophils % (auto) 92.6 %; RBC Morphology Unremarkable
--- NOTE | 2022-01-30 06:56 | Surgery Progress Note ---
Date of Service January 30, 2022 Assessment & Plan (1) Acute appendicitis: Plan: Status post laparoscopic appendectomy on 01/29/2022 (postop day #1) Continue analgesics Continue antiemetics Encourage use of incentive spirometry Mobilize as able Continue JOYCE drain to bulb suction Continue antibiotics in the form of intravenous Cipro and Flagyl Continue clear liquids for the present time. Consideration be given to advancing diet later today. Continue intravenous fluids for hydration until certain oral intake can be advanced Concern noted perioperatively for possible alcohol withdrawal. Hospitalist consulted noted. For the present time clinical monitoring is being employed. If patient remains hospitalized can consider adding Lovenox for DVT prevention as above. doing well. possible d/c tomorrow. JOYCE looks good. pain much better than pre-op Admission and Anticipated Discharge Date Admission Date: January 29, 2022 Subjective Patient is resting comfortably in bed. Patient notes he does have some incisional pain but notes that his pain has improved since his surgery. He denies nausea or vomiting. He is tolerating clear liquids since surgery. No bowel movement or flatus since surgery. He denies any cough or shortness of breath. Physical Exam Gastrointestinal (Abdomen): Abdomen is soft and nonrigid. Bowel sounds are hypoactive. JOYCE drain is in place draining serosanguineous fluid in his drain 130 cc since surgery. Patient has appropriate pain near surgical incisions which appear well approximated. Results & Data ([facility]) Vital Signs (Past 12 Hours) Vital Signs Temp Pulse Pulse Resp BP Pulse Ox O2 Del Method 01/30/22 04:00 36.7 C 86 20 120/73 95 Room Air 01/29/22 23:44 37.1 C 81 20 112/71 97 Room Air 01/29/22 22:36 83 01/29/22 22:34 37.1 C 82 18 112/71 95 Room Air 01/29/22 22:19 37.1 C 82 18 112/71 95 Room Air 01/29/22 21:55 36.7 C 86 14 126/74 93 Room Air 01/29/22 21:45 88 22 125/78 96 Room Air 01/29/22 21:35 94 H 22 146/86 H 99 Oxymask 01/29/22 21:27 36.3 C L 102 H 22 135/88 100 Oxymask 01/29/22 19:15 37.2 C 85 22 134/81 95 Room Air O2 Flow Rate 01/30/22 04:00 01/29/22 23:44 01/29/22 22:36 01/29/22 22:34 01/29/22 22:19 01/29/22 21:55 01/29/22 21:45 01/29/22 21:35 6 01/29/22 21:27 6 01/29/22 19:15 PG Care Time/CCT Total # of Minutes Spent Total Time Spent with Patient: Total time spent is greater than 50% in coordination of care (as documented) at patient's floor/unit and/or counseling patient: Coding Level of Care Code None Diagnoses Acute appendicitis K35.80 Acute appendicitis type: with localized peritonitis Appendicitis abscess presence: without abscess Appendicitis perforation presence: with perforation (1) Acute appendicitis Acute appendicitis type: with localized peritonitis Appendicitis abscess presence: without abscess Appendicitis perforation presence: with perforation
--- NOTE | 2022-01-30 08:22 | Hospitalist Progress Note ---
Date of Service January 30, 2022 Assessment & Plan (1) Acute appendicitis: Plan: 56yo male presenting with acute appendicitis s/p laparoscopic appendectomy performed last night 01/29/22. Surgery well tolerated, no complications identified. -Pain control, anti-emetics and bowel regimen per primary team -Advance diet as tolerated -LR at 75mL/hr -Ciprofloxacin 400mg IV q 12 hours -Flagyl 500mg IV q 8 hours (2) Alcohol abuse: Plan: Patient reports drinking 4 24oz beers occasionally, typically on weekends for football games. No history of EtOH withdrawal. Presently no clinical withdrawal -AWSS at risk protocol -Monitor for evidence of withdrawal (3) Benign prostatic hyperplasia with urinary obstruction: Plan: Chronic. -Monitor UOP -Resume tamsulosin 0.4mg po daily -Continue Tolterodine (4) Hypothyroidism: Plan: Chronic -Resume Synthroid 50mcg po daily (5) S/P ablation of atrial fibrillation: Plan: Presently in sinus rhythm -Continue metoprolol -Xarelto to be resumed by primary team Admission and Anticipated Discharge Date Admission Date: January 29, 2022 Supervising Physician Co-Signing Physician Notes PA Supervision Note: I personally saw and examined the patient. I verified all clemente points and agree with NANETTE May with the following exceptions and/or additions: none Subjective Patient seen this AM, he is resting in bed comfortably and taking with his who is at bedside. He tells me that he had some cramping incisional pain this AM an got a dose of morphine that helped with the pain. He is passing alot of flatus and states he even had a small brown bowel movement today. He denies any nausea or vomiting and is tolerating clear liquids. Review of Systems Review of Systems: All ROS negative unless stated above. He denies any CP, SOB, cough or dysnea He denies any N/V Physical Exam Constitutional: WD/WN, vitals as above ENMT: external ear and nose normal, oropharynx normal Neck: trachea midline, no thyromegaly Respiratory: normal respiratory effort, lungs clear to auscultation Cardiovascular: RRR, no murmur, no edema Gastrointestinal (Abdomen): Abdomen soft and round with good BS, mild incisional tenderness, no R/R/G. Surgical dressing clean and drain in place with a small amount of serosanguineous drainage Skin: no rashes, warm and dry Neurologic: patellar DTR's 2+ bilat, sensation intact and PERRL, EOMI, accommodation nl, no face palsy, no dysarthria Psychiatric: A+Ox3, euthymic affect Results & Data Results & Data ([facility]) Vital Signs (Past 12 Hours) Vital Signs Temp Pulse Pulse Resp BP BP Pulse Ox 01/30/22 07:37 36.6 C 81 20 122/80 95 01/30/22 07:30 81 01/30/22 04:00 36.7 C 86 20 120/73 95 01/29/22 23:44 37.1 C 81 20 112/71 97 01/29/22 22:36 83 01/29/22 22:34 37.1 C 82 18 112/71 95 01/29/22 22:19 37.1 C 82 18 112/71 95 01/29/22 21:55 36.7 C 86 14 126/74 93 01/29/22 21:45 88 22 125/78 96 01/29/22 21:35 94 H 22 146/86 H 99 01/29/22 21:27 36.3 C L 102 H 22 135/88 100 O2 Del Method O2 Flow Rate 01/30/22 07:37 Room Air 01/30/22 07:30 01/30/22 04:00 Room Air 01/29/22 23:44 Room Air 01/29/22 22:36 01/29/22 22:34 Room Air 01/29/22 22:19 Room Air 01/29/22 21:55 Room Air 01/29/22 21:45 Room Air 01/29/22 21:35 Oxymask 6 01/29/22 21:27 Oxymask 6 Laboratory Results Abnormal lab results 01/29/22 01/29/22 01/30/22 Range/Units 18:35 18:35 01:05 WBC 12.49 H (4.8-10.8) K/ul RBC (4.63-6.08) M/uL MPV 8.8 L (9.4-12.4) fL Neut # (Auto) 10.01 H (1.4-6.5) K/uL Lymph # (Auto) 1.19 L (1.2-3.4) K/uL [place] # (Auto) 1.22 H (0.24-0.82) K/uL Immature Gran # (Auto) 0.05 H (0.00-0.02) K/uL Sodium 132 L (136-145) mmol/L Glucose (70-99(Fasting)) mg/dl Total Bilirubin 2.0 H (0.2-1.0) mg/dl Urine Protein Trace H (Negative) Urine Ketones 1+ H (Negative) U Epithel Cells (Auto) 20-30 H (0-5) /lpf 01/30/22 01/30/22 Range/Units 05:23 05:23 WBC 12.81 H (4.8-10.8) K/ul RBC 4.47 L (4.63-6.08) M/uL MPV 8.8 L (9.4-12.4) fL Neut # (Auto) 11.87 H (1.4-6.5) K/uL Lymph # (Auto) 0.28 L (1.2-3.4) K/uL [place] # (Auto) (0.24-0.82) K/uL Immature Gran # (Auto) 0.04 H (0.00-0.02) K/uL Sodium 135 L (136-145) mmol/L Glucose 135 H (70-99(Fasting)) mg/dl Total Bilirubin (0.2-1.0) mg/dl Urine Protein (Negative) Urine Ketones (Negative) U Epithel Cells (Auto) (0-5) /lpf PG Care Time/CCT Total # of Minutes Spent Total Time Spent with Patient: Total time spent is greater than 50% in coordination of care (as documented) at patient's floor/unit and/or counseling patient: Coding Level of Care Code 92461 Subseq Hosp Care Lvl 3 Medical Decision Making Moderate Complexity Diagnoses Acute appendicitis K35.80 Acute appendicitis type: with localized peritonitis Appendicitis abscess presence: without abscess Appendicitis perforation presence: with perforation Alcohol abuse F10.10 Benign prostatic hyperplasia with urinary obstruction N40.1; N13.8 Hypothyroidism E03.9 S/P ablation of atrial fibrillation Z98.890; Z86.79 Time Spent (min) 30 (1) Acute appendicitis Acute appendicitis type: with localized peritonitis Appendicitis abscess presence: without abscess Appendicitis perforation presence: with perforation
[2022-01-30] MEDS: METOPROLOL SUCC 25MG EXT REL TAB PO SCH (09:17)
[2022-01-30] MEDS: TAMSULOSIN HCL 0.4 MG CAP PO SCH (09:17)
[2022-01-30] MEDS: TOLTERODINE TARTRATE 2 MG TAB PO SCH ×2 (09:17→20:02)
[2022-01-30] MEDS: CIPROFLOXACIN / D5W 400 MG/200 ML BAG IV SCH ×2 (09:17→20:00)
[2022-01-30] MEDS: LACTATED RINGER'S 1,000 ML IV SCH ×2 (11:57→21:27)
[2022-01-31] MEDS: metroNIDAZOLE 500 MG/100 ML BAG IV SCH ×3 (03:02→19:09)
[2022-01-31] MEDS: LEVOTHYROXINE SODIUM 50 MCG TABLET PO SCH (05:00)
--- NOTE | 2022-01-31 06:01 | Surgery Progress Note ---
Date of Service January 31, 2022 Assessment & Plan (1) Acute appendicitis: Plan: Status post laparoscopic appendectomy on 01/29/2022 (postop day #2) Continue analgesics Continue antiemetics Encourage use of incentive spirometry Mobilize as able Continue JOYCE drain to bulb suction Continue antibiotics in the form of intravenous Cipro and Flagyl Consideration can be given to advancing patient's diet as he is passing flatus and has had a bowel movement. Continue intravenous fluids for hydration until certain oral intake is adequate Hospitalist have been consulted for possible perioperative alcohol withdrawal. Patient is remained clinically stable in this regard. We will continue to monitor. Concern noted perioperatively for possible alcohol withdrawal. Hospitalist consulted noted. For the present time clinical monitoring is being employed. If patient remains hospitalized can consider adding Lovenox for DVT prevention As above. He is doing very well. We will advance his diet and restart his Xarelto today. He continues to do well plan discharge tomorrow. He did have a small run of V. tach. We discussed this with the primary service and will check electrolytes. Completely asymptomatic. Admission and Anticipated Discharge Date Admission Date: January 29, 2022 Subjective Patient reports a good night. He denies any fevers, shakes, or chills. He notes minimal abdominal pain. He says that he is passing flatus and has had a loose bowel movement. He has thus far tolerated clears without any worsening abdominal pain. Physical Exam Gastrointestinal (Abdomen): Abdomen is soft, nondistended, minimal pain noted with palpation. JOYCE drain is in place draining serous fluid and is drained approximately 60 cc last 24 hours. Results & Data ([facility]) Vital Signs (Past 12 Hours) Vital Signs Temp Pulse Pulse Resp BP Pulse Ox O2 Del Method 01/31/22 04:15 36.5 C 67 20 110/67 95 Room Air 01/30/22 23:52 36.5 C 64 20 113/75 97 Room Air 01/30/22 22:22 68 01/30/22 19:55 36.4 C L 73 20 101/64 94 Room Air PG Care Time/CCT Total # of Minutes Spent Total Time Spent with Patient: Total time spent is greater than 50% in coordination of care (as documented) at patient's floor/unit and/or counseling patient: Coding Level of Care Code None Diagnoses Acute appendicitis K35.80 Acute appendicitis type: with localized peritonitis Appendicitis abscess presence: without abscess Appendicitis perforation presence: with perforation (1) Acute appendicitis Acute appendicitis type: with localized peritonitis Appendicitis abscess presence: without abscess Appendicitis perforation presence: with perforation
--- NOTE | 2022-01-31 08:13 | Hospitalist Progress Note ---
Date of Service January 31, 2022 Assessment & Plan (1) Acute appendicitis: Plan: 56yo male presenting with acute appendicitis s/p laparoscopic appendectomy performed 01/29/22. Surgery well tolerated, no complications identified. -Pain control, anti-emetics and bowel regimen per primary team -Tolerated a regular diet for lunch -Discontinued IVFs -Completed Ciprofloxacin 400mg IV q 12 hours and Flagyl 500mg IV q 8 hours (2) Alcohol abuse: Plan: Patient reports drinking 4 24oz beers occasionally, typically on weekends for football games. No history of EtOH withdrawal. Presently no clinical withdrawal -AWSS at risk protocol -Monitor for evidence of withdrawal (3) Benign prostatic hyperplasia with urinary obstruction: Plan: Chronic -Monitor UOP -Continue tamsulosin 0.4mg po daily -Continue Tolterodine 2mg BID (4) Hypothyroidism: Plan: Chronic -Continue Synthroid 50mcg po daily (5) S/P ablation of atrial fibrillation: Plan: Presently in sinus rhythm -Continue metoprolol Patient tells me that he is only on 10mg of Xarelto. He states the customer quality engineer changed the dose from 20mg to 10 mg last month. He has a hx of A flutter with RVR and hx of a DVT. His PCP deferrred the water use inspector management to hematology for the Xarelto and it was decided he only needed 10mg daily. I also verified this dose with [facility] on [facility]. Discussed with Dr Nair and he was agreeable to the change in dose. -Xarelto resumed at 10mg daily (6) Ventricular tachycardia seen on payroll consultant: Plan: Patient had an asymptomatic short run of V Tach this AM seen on the monitor. Patient had no CP, SOB or dyspnea. Vital signs were stable. BMP, CBC and Mg were checked STAT and were normal. Patient's last echo was 10/[address] Chan ordered another echo for today. Plan Discussed patient with Dr Chan who assisted with the plan. Admission and Anticipated Discharge Date Admission Date: January 29, 2022 Supervising Physician Co-Signing Physician Notes PA Supervision Note: I personally saw and examined the patient. I verified all clemente points and agree with NANETTE May with the following exceptions and/or additions: Maintain K >4, Mg >2 for nonsustained asymptomatic VTach. Echo to ensure no drastic reduction in EF, no significant change from 10/2021 Echo. Leukocytosis resolved, continue cipro/flagyl. No evidence of post-operative alcohol withdrawal. Confirmed with Hematology today that patient on 10mg Xarelto daily, appropriate given that patient has had AFlutter in the past. Previous Cardiology notes suggest no need for AC for AFlutter at this time, so will continue 10mg dosing for DVT ppx. Subjective Patient seen this AM on rounds, He had a short run of V tach ( a few seconds) Patient had no SOB, chest pain or dyspnea. Patient had STAT CBC, BMP and magnesium levels and also an echo ordered. Last echo was 11/02. K+ was 3.5 and Mg 2 Patient is post op day #2 from laparoscopic appendectomy. Patient states he is feeling much better today. He is passing flatus and had another small loose brown BM this morning. He has some very minimal incisional tenderness. He has minimal amount of serosanguineous drainage in the bulb. He states he is getting up out of bed and ambulating around the room and into the recliner. Review of Systems Review of Systems: All ROS negative unless stated above. He denies any CP, SOB, cough or dysnea He denies any N/V Physical Exam Constitutional: WD/WN, vitals as above ENMT: external ear and nose normal, oropharynx normal Neck: trachea midline, no thyromegaly Respiratory: normal respiratory effort, lungs clear to auscultation Cardiovascular: RRR, no murmur, no edema Gastrointestinal (Abdomen): + BS x 4 quadrants, drainage bulb in place RLQ with mild amount of serosanguineous drainage. Abdomen soft and no R/R/G Skin: no rashes, warm and dry Neurologic: patellar DTR's 2+ bilat, sensation intact and PERRL, EOMI, accommodation nl, no face palsy, no dysarthria Psychiatric: A+Ox3, euthymic affect Results & Data Results & Data ([facility]) Vital Signs (Past 12 Hours) Vital Signs Temp Pulse Pulse Resp BP Pulse Ox O2 Del Method 01/31/22 08:09 36.9 C 66 20 103/63 94 Room Air 01/31/22 07:21 72 01/31/22 07:00 36.6 C 59 L 18 107/70 96 Room Air 01/31/22 04:15 36.5 C 67 20 110/67 95 Room Air 01/30/22 23:52 36.5 C 64 20 113/75 97 Room Air 01/30/22 22:22 68 Laboratory Results Abnormal lab results 01/31/22 Range/Units 08:52 RBC 4.23 L (4.63-6.08) M/uL MPV 8.8 L (9.4-12.4) fL Lymph # (Auto) 0.57 L (1.2-3.4) K/uL PG Care Time/CCT Total # of Minutes Spent Total Time Spent with Patient: Total time spent is greater than 50% in coordination of care (as documented) at patient's floor/unit and/or counseling patient: [place] [address] Subseq Hosp Care Lvl 3 Patient Type Established Medical Decision Making Moderate Complexity Diagnoses Acute appendicitis K35.80 Acute appendicitis type: with localized peritonitis Appendicitis abscess presence: without abscess Appendicitis perforation presence: with perforation Alcohol abuse F10.10 Benign prostatic hyperplasia with urinary obstruction N40.1; N13.8 Hypothyroidism E03.9 S/P ablation of atrial fibrillation Z98.890; Z86.79 Ventricular tachycardia seen on payroll consultant I47.20 (1) Acute appendicitis Acute appendicitis type: with localized peritonitis Appendicitis abscess presence: without abscess Appendicitis perforation presence: with perforation
[2022-01-31] MEDS: METOPROLOL SUCC 25MG EXT REL TAB PO SCH (09:10)
[2022-01-31] MEDS: TOLTERODINE TARTRATE 2 MG TAB PO SCH ×2 (09:10→20:14)
[2022-01-31] MEDS: TAMSULOSIN HCL 0.4 MG CAP PO SCH (09:10)
[2022-01-31] MEDS: CIPROFLOXACIN / D5W 400 MG/200 ML BAG IV SCH ×2 (09:10→20:14)
[2022-01-31 09:27] LABS: Basophils # (auto) 0.01 K/uL (0-0.2); Basophils % (auto) 0.2 %; Eosinophils # (auto) 0.01 K/uL (0-0.50); Eosinophils % (auto) 0.2 %; Hematocrit (blood only) 41.6 % (40.1-51.0); Hemoglobin 14.2 g/dl (14.0-18.0); Immature Granulocytes # (auto) 0.02 K/uL (0.00-0.02); Immature Granulocytes % (auto) 0.3 %; Lymphocytes # (auto) 0.57 K/uL (1.2-3.4); Lymphocytes % (auto) 9.3 %; Mean Corpuscular Hemoglobin 33.6 pg (25.0-34.0); Mean Corpuscular Hgb Conc 34.1 g/dL (32.0-36.0); Mean Corpuscular Volume 98.3 fL (80.0-100.0); Mean Platelet Volume 8.8 fL (9.4-12.4); Monocytes # (auto) 0.44 K/uL (0.24-0.82); Monocytes % (auto) 7.2 %; Neutrophils # (auto) 5.06 K/uL (1.4-6.5); Neutrophils % (auto) 82.8 %; Platelet Count 198 K/uL (130-400); RDW Coefficient of Variation 12.7 % (11.5-14.5); RDW Standard Deviation 46.2 fL (36.4-46.3); Red Blood Count 4.23 M/uL (4.63-6.08); White Blood Count 6.11 K/ul (4.8-10.8)
[2022-01-31 09:58] LABS: BUN Creatinine Ratio 12.3 (10-20); Calcium 8.5 mg/dl (8.5-10.1); Creatinine Clr Calc Pharmacy 106.9 ml/min; Est GFR (African American) 90.5 ml/min; Est GFR (Non-African American) 78.1 ml/min; Potassium 3.5 mmol/L (3.5-5.1)
[2022-01-31] MEDS: RIVAROXABAN 20 MG TAB PO SCH ×2 (10:54→13:01)
[2022-01-31] MEDS ORDERED: RIVAROXABAN 10 MG TABLET PO SCH (17:00)
--- NOTE | 2022-01-31 17:11 | XCELERA ---
[id number] \\[id number]
[2022-01-31] MEDS: ACETAMINOPHEN 500 MG TAB PO PRN (19:14)
[2022-02-01] MEDS: ACETAMINOPHEN 500 MG TAB PO PRN (02:53)
[2022-02-01] MEDS: metroNIDAZOLE 500 MG/100 ML BAG IV SCH (03:00)
[2022-02-01] MEDS: LEVOTHYROXINE SODIUM 50 MCG TABLET PO SCH (06:04)
[2022-02-01 06:17] LABS: Basophils # (auto) 0.02 K/uL (0-0.2); Basophils % (auto) 0.4 %; Eosinophils # (auto) 0.08 K/uL (0-0.50); Eosinophils % (auto) 1.8 %; Hematocrit (blood only) 39.6 % (40.1-51.0); Hemoglobin 13.4 g/dl (14.0-18.0); Immature Granulocytes # (auto) 0.01 K/uL (0.00-0.02); Immature Granulocytes % (auto) 0.2 %; Lymphocytes # (auto) 0.65 K/uL (1.2-3.4); Lymphocytes % (auto) 14.3 %; Mean Corpuscular Hemoglobin 33.2 pg (25.0-34.0); Mean Corpuscular Hgb Conc 33.8 g/dL (32.0-36.0); Mean Platelet Volume 8.7 fL (9.4-12.4); Monocytes # (auto) 0.47 K/uL (0.24-0.82); Monocytes % (auto) 10.3 %; Neutrophils # (auto) 3.32 K/uL (1.4-6.5); Platelet Count 196 K/uL (130-400); RDW Coefficient of Variation 12.7 % (11.5-14.5); RDW Standard Deviation 45.8 fL (36.4-46.3); Red Blood Count 4.04 M/uL (4.63-6.08); White Blood Count 4.55 K/ul (4.8-10.8)
[2022-02-01 06:57] LABS: BUN Creatinine Ratio 13.6 (10-20); Calcium 8.3 mg/dl (8.5-10.1); Est GFR (African American) 93.7 ml/min; Est GFR (Non-African American) 80.8 ml/min; Magnesium 2.1 mg/dl (1.7-2.4); Potassium 4.2 mmol/L (3.5-5.1)
--- NOTE | 2022-02-01 09:25 | Hospitalist Progress Note ---
Date of Service February 01, 2022 Assessment & Plan (1) Acute appendicitis: Plan: 56yo male presenting with acute appendicitis s/p laparoscopic appendectomy performed 01/29/22. Surgery well tolerated, no complications identified. -Pain control, anti-emetics and bowel regimen per primary team -Tolerated a regular diet -Discontinued IVFs yesterday - Changed Cipro and flagyl to po for discharge (2) Alcohol abuse: Plan: Patient reports drinking 4 24oz beers occasionally, typically on weekends for football games. No history of EtOH withdrawal. Presently no clinical withdrawal -AWSS at risk protocol -Monitor for evidence of withdrawal -Discussed not to drink alcohol while on the Flagyl (3) Benign prostatic hyperplasia with urinary obstruction: Plan: Chronic -Continue tamsulosin 0.4mg po daily -Continue Tolterodine 2mg BID (4) Hypothyroidism: Plan: Chronic -Continue Synthroid 50mcg po daily (5) S/P ablation of atrial fibrillation: Plan: Presently in sinus rhythm -Continue metoprolol Patient tells me that he is only on 10mg of Xarelto. He states the outside machinist changed the dose from 20mg to 10 mg last month. He has a hx of A flutter with RVR then s/p ablation so no need for AC. Also with hx of a DVT/PE. His PCP deferred the agent broker management to hematology for the Xarelto and it was decided he only needed 10mg daily. I also verified this dose with [facility] on [facility]. Discussed with Dr Nair and he was agreeable to the change in dose. -Xarelto resumed at 10mg daily (6) Ventricular tachycardia seen on security monitor: Plan: Patient had an asymptomatic short run of V Tach seen on the monitor. Patient had no CP, SOB or dyspnea. Vital signs were stable. BMP, CBC and Mg were checked STAT and were normal. Patient's last echo was 10/[address] Chan ordered another echo. Echo 01/31/22 - Preserved EF at 60-65% and no significant change from 10/15/2021 (7) Abnormal CT scan: Plan: - 3cm focus wedge-shaped subpleural consolidation at the right lung base. (seen also on CT chest in September and was noted to be 2cm and recommended repeat in 6 months. To consider repeat imaging in another 2 months and /or referral to a blankbook forwarder. -Will need to follow up with primary care physician -Patient was advised and will follow up with his PCP -Note placed in discharge instructions and also will send progress note to PCP Plan Discussed patient with Dr Marlow who assisted with the plan. Patient is being discharged home today by general surgery Admission and Anticipated Discharge Date Admission Date: January 29, 2022 Supervising Physician Co-Signing Physician Notes PA Supervision Note: I did not personally see or examine the patient today, but I verified all clemente points of NANETTE May's assessment and plan with the following exceptions/additions: None Subjective Patient seen this AM on rounds. General surgery pulled his drain and changed his dressing. He is feeling well and would like to go home. Patient is post op day #3 from laparoscopic appendectomy. He is moving his bowels and passing gas and has had no vomiting and tolerating a diet. Review of Systems Review of Systems: All ROS negative unless stated above. He denies any CP, SOB, cough or dysnea He denies any N/V Constitutional: no fever, no chills and no insomnia Respiratory: no cough, no chest congestion, no dyspnea and no wheezing Cardiovascular: no chest pain, no dyspnea, no palpitations, no syncope and no edema Gastrointestinal: no nausea, no vomiting, no change in stools and no constipation Integumentary: no rash and no lesions Physical Exam Constitutional: WD/WN, vitals as above ENMT: external ear and nose normal, oropharynx normal Neck: trachea midline, no thyromegaly Respiratory: normal respiratory effort, lungs clear to auscultation Cardiovascular: RRR, no murmur, no edema Gastrointestinal (Abdomen): normal bowel sounds, soft, nontender, no hepatosplenomegaly Drain removed this AM by surgery Dressing clean Skin: no rashes, warm and dry Neurologic: patellar DTR's 2+ bilat, sensation intact and PERRL, EOMI, accommodation nl, no face palsy, no dysarthria Psychiatric: A+Ox3, euthymic affect Results & Data Results & Data ([facility]) Vital Signs (Past 12 Hours) Vital Signs Temp Pulse Pulse Resp BP Pulse Ox O2 Del Method 02/01/22 08:06 68 02/01/22 07:30 36.8 C 60 18 108/72 97 Room Air 02/01/22 02:53 37.0 C 58 L 18 107/70 96 Room Air 01/31/22 22:20 60 01/31/22 23:00 36.5 C 62 20 96/59 L 95 Room Air Laboratory Results Abnormal lab results 02/01/22 02/01/22 Range/Units 06:04 06:04 WBC 4.55 L (4.8-10.8) K/ul RBC 4.04 L (4.63-6.08) M/uL Hgb 13.4 L (14.0-18.0) g/dl Hct 39.6 L (40.1-51.0) % MPV 8.7 L (9.4-12.4) fL Lymph # (Auto) 0.65 L (1.2-3.4) K/uL Calcium 8.3 L (8.5-10.1) mg/dl Diagnostic Findings CTAP 01/29/22 IMPRESSION: 1. Severe acute appendicitis. 2. Findings are suspicious for perforation. No fluid collection is seen to indicate abscess. 3. The bladder wall appears circumferentially thickened. Correlate with urinalysis. 4. Right-sided nephrolithiasis. 5. There is a 3 cm focus of wedge-shaped subpleural consolidation at the right lung base. This is pathologically indeterminant, and a small pulmonary infarct is not excluded. If there is clinical concern for pulmonary embolus a CT angiogram of the chest should be obtained. 6. Additional findings as above. PG Care Time/CCT Total # of Minutes Spent Total Time Spent with Patient: Total time spent is greater than 50% in coordination of care (as documented) at patient's floor/unit and/or counseling patient: Coding Level of Care Code 88810 Subseq Hosp Care Lvl 3 Diagnoses Acute appendicitis K35.80 Acute appendicitis type: with localized peritonitis Appendicitis abscess presence: without abscess Appendicitis perforation presence: with perforation Alcohol abuse F10.10 Benign prostatic hyperplasia with urinary obstruction N40.1; N13.8 Hypothyroidism E03.9 S/P ablation of atrial fibrillation Z98.890; Z86.79 Ventricular tachycardia seen on security monitor I47.[address] scan R93.89 Time Spent (min) 30 (1) Acute appendicitis Acute appendicitis type: with localized peritonitis Appendicitis abscess presence: without abscess Appendicitis perforation presence: with perforation
[2022-02-01] MEDS: CIPROFLOXACIN / D5W 400 MG/200 ML BAG IV SCH (09:58)
[2022-02-01] MEDS: TAMSULOSIN HCL 0.4 MG CAP PO SCH (09:58)
[2022-02-01] MEDS: METOPROLOL SUCC 25MG EXT REL TAB PO SCH (09:58)
[2022-02-01] MEDS: TOLTERODINE TARTRATE 2 MG TAB PO SCH (09:58)
[2022-02-01] MEDS ORDERED: CIPROFLOXACIN 500 MG TAB PO SCH ×2 (10:45→21:00)
[2022-02-01] MEDS ORDERED: metroNIDAZOLE 500 MG TAB PO SCH (11:00)
--- NOTE | 2022-02-03 10:47 | Discharge Summary ---
Date of Service February 01, 2022 Admission HPI Per Admitting Provider 56 y/o with abdominal pain starting yesterday. out patient ct shows acute possibly perforated appendicitis. Principal Diagnosis Acute perforated appendicitis Discharge Exam Constitutional WD/WN, vitals as above Gastrointestinal (Abdomen) Inspection/Auscultation: + abdominal surgical incision (dry, no erythema) Percussion/Palpation: abdomen soft Discharge Data Allergies Allergy/AdvReac Type Severity Reaction Status Date / Time Penicillins Allergy Severe THROAT Verified 01/29/22 13:47 SWELLING latex Allergy Mild ITCHING Verified 01/29/22 13:47 Consultations 01/29/22 18:27 ED Decision to Admit Stat 01/29/22 22:19 Consult Hospitalist Routine Procedures Performed Operation Date: 01/29/22 18:45 Actual Procedures p Laparoscopic Appendectomy(Not Applicable) - Anjel Nair DO Hospital Course (1) Acute appendicitis: 56-year-old male with history of atrial flutter, cardiomyopathy, alcohol use presented to the ER with abdominal pain. White count was 12,[address] was consistent with acute appendicitis suspicious for perforation. He was taken to the operating room for laparoscopic appendectomy and transferred to the surgical floor. He was kept on IV Cipro and Flagyl postoperatively given allergy to penicillin. Hospitalist was consulted for assistance with medical management. He was able to tolerate an advancing diet. Xarelto was restarted on postoperative day 2. His white count had normalized by postoperative day 3. JOYCE drain was removed. He was stable for discharge home on oral antibiotics. Total Time Total Time Spent Total Time Spent (In Minutes): 15 Discharge Plan Discharge Items Patient Disposition: Home - Self-Care Reason For Visit: APPY Discharge Diagnosis: Appedicitis Condition on Discharge: Good Activity: As commented below Activity Comment: Walk daily Lifting: No more than 10 pounds Bathing Comment: OK to shower Driving/Machine Use: Resume 3 days after discharge Non-emergency contact: Surgeon Call non-emergency contact if: you have any medication questions, you have a fever, your temperature is above 101.5 and your wound has increased redness Follow-up/Referrals: Anjel Nair DO [Surgeon] - (Call office for an appointment in 1-2 weeks) Suha Mcneal MD [Primary Care Provider] - Diet: Regular Addtl Attending Provider Instructions: Call office with questions You can take Tylenol as needed for pain Addtl Gear Design Engineer Provider Instructions: Will need to have followup with your primary care physician regarding the abnormal CT of the abdomen - 3cm focus wedge-shaped subpleural consolidation at the right lung base. (seen also on CT chest in September and was noted to be 2cm and recommended repeat in 6 months. To consider repeat imaging in another 2 months and /or referral to a safety and security officer. Continue home meds Xarelto 10mg daily Metoprolol 25mg daily Tamsulosin 0.4mg daily Tolterodine 2mg twice daily Multivitamin and vitamin B12 Also had a short run of asymptomatic V Tach 01/31/22 Had a repeat echo with preserved EF of 60-65% and no changed whe compared with 10/2021 Pending Studies at Discharge: No Stand-Alone Forms: [facility], Work/School Release, Smoking Cessation Medications and DC Order Prescriptions: New metronidazole 500 mg tablet 500 mg PO TID Qty: 15 0RF ciprofloxacin HCl 500 mg tablet 500 mg PO BID Qty: 10 0RF acetaminophen [Tylenol Extra Strength] 500 mg Tablet 1,000 mg PO Q8H PRN (Reason: pain) Qty: 30 0RF Rx Instructions: OTC Continued tolterodine 2 mg tablet 2 mg PO BID 90 Days Qty: 180 1RF cyanocobalamin (vitamin B-12) 1,000 mcg tablet 1,000 mcg PO QAM metoprolol succinate 25 mg tablet extended release 24 hr 25 mg PO QAM Qty: 90 3RF Xarelto 10 mg tablet 10 mg PO QDD multivitamin tablet 1 tab PO QAM tamsulosin 0.4 mg capsule 0.4 mg PO QAM levothyroxine 50 mcg tablet 50 mcg PO QAM Discharge Orders: Discharge Order (Routine); Ordered 02/01/22 Ordered By: Saul Montoya Jr Admission Data Admit Date/Time: 01/29/22 21:04 Attending Provider: Anjel Nari Admit Provider: Anjel Nair Primary Care Provider: Suha Mcneal Other Providers: Keren Puente ; Anjel Nair ; Mireya Marlow Other Interventions: Discharge Summary Assessment (RN) Last Done: 02/01/22 13:19 Coding Level of Care Code D/C DAY MANAGEMENT <30 MINS Diagnoses Acute appendicitis K35.80 Acute appendicitis type: with localized peritonitis Appendicitis abscess presence: without abscess Appendicitis perforation presence: with perforation
== END 2022-02-01 14:14 | disposition home or self-care (01) | DRG 339 ==
LOC: ED 17:51 → OR 19:19 → 2W 21:04
DX: Z86.711 Personal history of pulmonary embolism; I47.20 Ventricular tachycardia, unspecified; Z20.822 Contact with and (suspected) exposure to COVID-19; Z86.718 Personal history of other venous thrombosis and embolism; N40.1 Benign prostatic hyperplasia with lower urinary tract symptoms; Z68.33 Body mass index [BMI] 33.0-33.9, adult; Z91.040 Latex allergy status; K35.32 Acute appendicitis with perforation, localized peritonitis, and gangrene, without abscess; Z79.890 Hormone replacement therapy; I45.10 Unspecified right bundle-branch block; E78.5 Hyperlipidemia, unspecified; Z79.899 Other long term (current) drug therapy; N13.8 Other obstructive and reflux uropathy; F10.10 Alcohol abuse, uncomplicated; I42.8 Other cardiomyopathies; E66.9 Obesity, unspecified; Z86.79 Personal history of other diseases of the circulatory system; Z79.01 Long term (current) use of anticoagulants; Q23.1 Congenital insufficiency of aortic valve; E03.9 Hypothyroidism, unspecified; R91.8 Other nonspecific abnormal finding of lung field; Z88.0 Allergy status to penicillin